=== PATIENT | male | born 1950 | race Caucasian/White ===

== ENCOUNTER 2018-01-05 14:07 | Inpatient (IN) ==
[2018-01-05] MEDS: Famotidine 20 MG TABLET PO SCH (21:20)
[2018-01-06] MEDS: hydrALAZINE 25 MG TABLET PO SCH ×2 (00:09→08:34)
[2018-01-06 05:31] LABS: Basophils # 0.1 K/mcL (0.0-0.2); Basophils % 0.3 %; Eosinophils # 0.2 K/mcL (0.0-0.6); Eosinophils % 0.8 %; Hematocrit 32.8 % (37.5-50.1); Hemoglobin 11.3 g/dL (12.9-16.9); Immature Granulocytes % 0.7 % (0-4); Lymphocytes # 1.9 K/mcL (0.6-4.6); Mean Corpuscular HGB Conc 34.5 g/dL (31.6-35.5); Mean Corpuscular Hemoglobin 30.6 pg (28.0-33.3); Mean Corpuscular Volume 88.9 fL (83.0-100.0); Mean Platelet Volume 10.3 fL (9.4-12.4); Monocytes # 1.9 K/mcL (0.0-1.3); Monocytes % 7.9 %; Platelet Count 291 K/mcL (140-400); Red Blood Count 3.69 M/mcL (4.19-5.50); Red Cell Distribution Width 13.6 % (11.5-14.5); Segmented Neutrophils % 82.3 %
[2018-01-06 05:33] LABS: Neutrophils # 19.3 K/mcL (1.6-8.9)
[2018-01-06 05:36] LABS: INR 1.3; Prothrombin Time 14.2 Seconds (9.4-12.1)
[2018-01-06 05:38] LABS: Activated Partial Thrombo Time 26.8 Seconds (26.0-36.0)
[2018-01-06 05:46] LABS: BUN/Creatinine Ratio 22 (6-26); Blood Urea Nitrogen 24 mg/dL (8-23); Calcium 9.7 mg/dL (8.6-10.3); Carbon Dioxide 25 mEq/L (23-29); Chloride 96 mEq/L (98-107); Glucose 215 mg/dL (70-105); Osmolality,Calculated 281 (280-300); Sodium 130 mEq/L (136-145); eGFR For African Americans > 60 (> 60); eGFR For Non-African Americans > 60 (> 60)
[2018-01-06] MEDS: Aspirin Enteric Coated 81 MG Tablet PO SCH (08:32)
[2018-01-06] MEDS: Famotidine 20 MG TABLET PO SCH (08:34)
[2018-01-06] MEDS ORDERED: hydroCHLOROthiazide 25 MG TABLET PO SCH (09:00)
[2018-01-06] MEDS ORDERED: D5% in Water 1,000 ML IVC PRN (11:32)
[2018-01-06] MEDS ORDERED: Dextrose Gel 15 GM/37.5 ML TUBE PO PRN ×2 (11:32)
[2018-01-06] MEDS ORDERED: *HR* Dextrose 50 % in Water (Syg) 50 ML SYRINGE IVP PRN (11:32)
[2018-01-06] MEDS: Insulin LISPRO 300 UNITS/3 ML VIAL SQ SCH ×2 (12:31→18:33)
--- NOTE | 2018-01-06 12:44 | Internal Med History&Physical ---
Date of Encounter: 01/06/18 Time of Encounter: 12:40 Assessment and Plan (1) CVA (cerebral vascular accident) Current visit: Yes Status: Acute PT and OT and ST to eval and treat. Will follow progress. No new neuro deficits at this time Qualifiers: CVA mechanism: unspecified Qualified Code(s): I63.9 - Cerebral infarction, unspecified (2) Diabetes type 2, controlled Current visit: Yes Status: Acute Elevated glucose today. Patient receiving nutrition through Gtube. Is NPO at this time. Will add an low-dose sliding scale coverage for elevated glucose. Qualifiers: Diabetes mellitus complication status: without complication Diabetes mellitus prison insulin use: without prison use Qualified Code(s): E11.9 - Type 2 diabetes mellitus without complications (3) HTN (hypertension) Current visit: Yes Status: Chronic Controlled with current medication. Will monitor BP Qualifiers: Hypertension type: essential hypertension Qualified Code(s): I10 - Essential (primary) hypertension (4) Leukocytosis, unspecified Current visit: Yes Status: Acute White blood cell count 23.5 today was 15.8 on January 01 at the last facility. Will order testing and follow-up labs for tomorrow. Patient is afebrile with no respiratory complications at this time. Qualifiers: Leukocytosis type: unspecified Qualified Code(s): D72.829 - Elevated white blood cell count, unspecified Internal Medicine - H&P: HPI Admitted From: [facility] Plans for Post Hospital Care: Home History of present illness: Mr. Fuentes is a 67 year old male admitted from [facility] rehab facility to this facility for rehabilitation following stroke late November 2017. Positive for right middle cerebral artery infarct which developed into a bleed. He require a craniotomy for decompression. Patient has left-sided plegia and left-sided neglect. Patient is fatigued at this time but did participate with physical therapy and occupational therapy today. Vital signs are stable in patient is afebrile. NPO due to dysphagia, nutrition and meds through gtube. Past medical history includes hypertension, diabetes, hyperlipidemia, hypothyroidism. Patient spouse was present most of the day today. Patient is unable to participate in HPI due to fatigue but is alert to self and place. And denies pain at this time. Past Med Surg Social Fam HX - Past Medical History Medical history: CVA, hyperlipidemia, hypertension, thyroid disease, other Psychiatric history: no psych history - Past Surgical History Surgical History: orthopedic, other - Social History Smoking Status: Never smoker Smokeless Tobacco Status: No Alcohol use: none Drug use: none - Family History Brother Name: polina Living Status: Still Living Internal Medicine - H&P: Meds Levothyroxine [Synthroid] 100 mcg PO 0630 12/06/17 [History] Losartan [Cozaar] 50 mg PO Q12HR 12/06/17 [History] Aspirin Enteric Coated [Aspirin EC] 81 mg PO DAILY 01/05/18 [History] Atorvastatin Calcium [Lipitor] 80 mg PO HS 01/05/18 [History] Docusate [Colace] 200 mg GTUBE BID PRN 01/05/18 [History] hydrALAZINE [HydrALAZINE] 25 mg PO Q8HR 01/05/18 [History] hydroCHLOROthiazide [Hydrochlorothiazide] 25 mg PO DAILY 01/05/18 [History] 3 Allergy/AdvReac Type Severity Reaction Status Date / Time No Known Allergies Allergy Verified 12/06/17 09:31 ROS unobtainable: due to mental status All Systems PM: A 10-system review of systems was performed and is negative for pertinent findings except as documented above in the HPI. - Constitutional Constitutional: no chills, no fever(s), no night sweats - EENT Eyes: no change in vision, no discharge, no pain, no photophobia Ears: no ear discharge, no ear pain, no tinnitus Nose, mouth and throat: no dysphagia, no nasal discharge, no neck pain, no sore throat - Cardiovascular Cardiovascular ROS IM: no chest pain, no diaphoresis, no dyspnea, no lightheadedness, no palpitations, no syncope - Respiratory Respiratory: no cough, no dyspnea, no wheezing, no excessive phlegm production - Gastrointestinal Gastrointestinal: no abdominal pain, no diarrhea, no hematemesis, no hematochezia, no melena, no nausea, no vomiting - Musculoskeletal Musculoskeletal ROS IM: no numbness, no tingling - Integumentary Integumentary IM: no rash, no unusual bruising - Neurological Neurological ROS: no confusion, no convulsions, no focal weakness, no numbness, no tingling, no tremor(s) - Hematologic/Lymphatic Hematologic/Lymphatic: no easy bruising - Constitutional Vitals: Temp Pulse Resp BP Pulse Ox 98.3 F 85 18 137/73 95 01/06/18 12:21 01/06/18 12:21 01/06/18 12:21 01/06/18 12:21 01/06/18 12:21 General appearance: Present: A&O X 2, no acute distress Exam: fatigue - Head Head exam: Present: atraumatic, normocephalic - Eye Eye exam: Present: PERRL, conjuntiva pink, sclera anicteric Pupils: Present: PERRL - Neck Neck exam general surgery: Present: supple, trachea midline. Absent: lymphadenopathy - Respiratory Respiratory exam: Present: CTAB. Absent: accessory muscle use, rales, rhonchi, wheezes - Cardiovascular Cardiovascular exam: Present: RRR, +S1, +S2. Absent: diastolic murmur, gallop, rubs, systolic murmur - GI/Abdominal GI/Abdominal exam: Present: normal bowel sounds, soft, no peritoneal signs. Absent: distended, tenderness Additional comments: g-tube - Extremities Exam Extremities exam: Present: warm, radial pulses palpable and symmetrical. Absent : calf tenderness, cyanotic, pedal edema - Neurological Exam Neurological exam: Present: alert. Absent: pronater drift, facial droop, speech deficit Additional comments: drowsy, LUE plegia. full strength in RE. - Skin Skin exam: Present: dry, intact Internal Med - H&P Results - Labs CBC & Chem 7: 01/06/18 05:25 01/06/18 05:25 Labs: Short CBC 01/06/18 Range/Units 05:25 WBC 23.5 H (4.3-11.1) K/mcL Hgb 11.3 L (12.9-16.9) g/dL Hct 32.8 L (37.5-50.1) % Plt Count 291 (140-400) K/mcL Neutrophils # 19.3 H (1.6-8.9) K/mcL BMP 01/06/18 05:25 Sodium 130 L Potassium 4.0 Chloride 96 L Carbon Dioxide 25 BUN 24 H Creatinine 1.07 Glucose 215 H Calcium 9.7 - VTE Documentation of Mechanical Device: Graduated compression elastic hosiery
[2018-01-06] MEDS: hydrALAZINE 25 MG TABLET GTUBE SCH ×2 (18:29→23:43)
[2018-01-06] MEDS: Famotidine 20 MG TABLET GTUBE SCH (21:32)
[2018-01-07] MEDS: Insulin LISPRO 300 UNITS/3 ML VIAL SQ SCH ×5 (00:02→23:17)
[2018-01-07 06:08] LABS: Basophils # 0.1 K/mcL (0.0-0.2); Basophils % 0.4 %; Eosinophils # 0.5 K/mcL (0.0-0.6); Eosinophils % 1.9 %; Hemoglobin 10.3 g/dL (12.9-16.9); Lymphocytes # 2.1 K/mcL (0.6-4.6); Lymphocytes % 7.8 %; Mean Corpuscular HGB Conc 34.3 g/dL (31.6-35.5); Mean Corpuscular Hemoglobin 30.6 pg (28.0-33.3); Mean Platelet Volume 10.7 fL (9.4-12.4); Monocytes # 2.5 K/mcL (0.0-1.3); Monocytes % 9.5 %; Platelet Count 254 K/mcL (140-400); Red Blood Count 3.37 M/mcL (4.19-5.50); Segmented Neutrophils % 79.4 %
[2018-01-07 06:15] LABS: Anisocytosis 1+ (Not Present)
[2018-01-07 06:26] LABS: BUN/Creatinine Ratio 24 (6-26); Blood Urea Nitrogen 26 mg/dL (8-23); Calcium 9.5 mg/dL (8.6-10.3); Carbon Dioxide 27 mEq/L (23-29); Chloride 93 mEq/L (98-107); Glucose 211 mg/dL (70-105); Osmolality,Calculated 279 (280-300); Potassium 3.8 mEq/L (3.5-5.1); Sodium 129 mEq/L (136-145); eGFR For African Americans > 60 (> 60); eGFR For Non-African Americans > 60 (> 60)
[2018-01-07] MEDS: Aspirin Enteric Coated 81 MG Tablet PO SCH (07:54)
[2018-01-07] MEDS: Famotidine 20 MG TABLET GTUBE SCH ×2 (07:54→22:53)
[2018-01-07] MEDS: hydrALAZINE 25 MG TABLET GTUBE SCH ×3 (07:54→22:53)
[2018-01-07] MEDS ORDERED: hydroCHLOROthiazide 25 MG TABLET GTUBE SCH (09:00)
--- NOTE | 2018-01-07 13:09 | Internal Med Progress Note ---
Date of Encounter: 01/07/18 Time of Encounter: 13:07 - Assessment and plan (1) CVA (cerebral vascular accident) Current Visit: Yes Status: Acute Assessment and plan: Patient with right hemisphere CVA and status post right craniectomy. Patient shows left grace-plegic and left facial droop. Also noted on exam left sided neglect. Patient currently is drowsy, but nursing states that he fatigued quickly during physical therapy. No acute neurological deficits noted on exam per medical records. We will continue with current plan of care and physical therapy. Patient to have modified swallow study performed today. Qualifiers: CVA mechanism: unspecified Qualified Code(s): I63.9 - Cerebral infarction, unspecified (2) Pneumonia Current Visit: No Status: Acute Assessment and plan: Patient's WBC was greater than 25 days morning. Chest x-ray from yesterday showed right base pleural effusion. No productive cough noted. Lungs are diminished at bases. We will start on Augmentin. Qualifiers: Pneumonia type: aspiration pneumonia Aspiration pneumonia type: unspecified Laterality: left Lung location: lower lobe of lung Qualified Code(s): J69.0 - Pneumonitis due to inhalation of food and vomit (3) HTN (hypertension) Current Visit: Yes Status: Chronic Assessment and plan: Vital signs presently are stable. We will continue with current medications Qualifiers: Hypertension type: essential hypertension Qualified Code(s): I10 - Essential (primary) hypertension - Time Spent With Patient less than 15 minutes - Subjective Interval history: Patient appears somewhat lethargic but able to awaken with verbal stimuli. Patient able to follow simple commands but shows difficulty following complex. Answer simple questions with yes no answers. Assessment of orientation is limited on this exam. - Constitutional Vitals: Temp Pulse Resp BP Pulse Ox 98.6 F 74 14 135/75 95 01/07/18 07:04 01/07/18 07:04 01/07/18 07:04 01/07/18 07:04 01/07/18 07:04 General appearance: Present: A&O X 1, no acute distress Exam: Patient was oriented to self but difficulty and judgment and orientation to time otherwise - Head Head exam: Present: atraumatic, normocephalic Additional comments: Right craniectomy with surgical incision appeared well-healed. - Eye Eye exam: Present: PERRL, conjuntiva pink, sclera anicteric Pupils: Present: PERRL - Neck Neck exam general surgery: Present: supple, trachea midline. Absent: lymphadenopathy - Respiratory Respiratory exam: Present: CTAB. Absent: accessory muscle use, rales, rhonchi, wheezes Additional comments: Lungs with diminished breath sounds in the bases bilaterally, otherwise clear to auscultation. Respiratory effort appears relaxed - Cardiovascular Cardiovascular exam: Present: RRR, +S1, +S2. Absent: diastolic murmur, gallop, rubs, systolic murmur - GI/Abdominal GI/Abdominal exam: Present: normal bowel sounds, soft, no peritoneal signs. Absent: distended, tenderness Additional comments: Gastrostomy tube in place and currently is clamped. Insertion site appears healthy - Extremities Exam Extremities exam: Present: warm, radial pulses palpable and symmetrical. Absent : calf tenderness, cyanotic, pedal edema - Neurological Exam Neurological exam: Absent: pronater drift, facial droop, speech deficit Additional comments: Patient currently appears very drowsy but was able to awaken by verbal. Patient noted to quickly fall back asleep unless continuously stimulated. Patient has left facial droop. Tongue is midline. Patient offers one to 2 word answers to simple questions but no other verbal response was cued. Noted left neglect on visual ferraro. Left grace-plegic. LE MS 5/5. - Skin Skin exam: Present: dry, intact Internal Medicine: Result - Labs CBC & Chem 7: 01/07/18 05:40 01/07/18 05:40 Labs: Short CBC 01/07/18 Range/Units 05:40 WBC 26.5 H (4.3-11.1) K/mcL Hgb 10.3 L (12.9-16.9) g/dL Hct 30.0 L (37.5-50.1) % Plt Count 254 (140-400) K/mcL Neutrophils # 21.0 H (1.6-8.9) K/mcL BMP 01/07/18 05:40 Sodium 129 L Potassium 3.8 Chloride 93 L Carbon Dioxide 27 BUN 26 H Creatinine 1.10 Glucose 211 H Calcium 9.5 - ABG Interpretation ABG results: PT/INR, D-dimer PT 14.2 Seconds (9.4-12.1) H 01/06/18 05:25 - Impressions Impressions Chest X-Ray 01/06/18 13:21 IMPRESSION: Increased pleural-parenchymal disease left lung base D/ / Jorge Olmedo MD / Jorge Olmedo MD Interpreting Provider: Jorge Olmedo MD - VTE Documentation of Mechanical Device: Graduated compression elastic hosiery Consult Discharge Plan - Plan Referrals: Erika Baca [employer]BE[employer] PIPE SUPERVISOR [Primary Care Provider] -
--- NOTE | 2018-01-07 17:21 | Physcial Medicine-Consult Note ---
Date of Encounter: 01/07/18 Time of Encounter: 17:12 Physical Medicine - AP (1) CVA (cerebral vascular accident) Status: Acute Assessment and plan: Initiate therapies. For his arousal disorder, I discussed Amantadine or amphetamine if medically appropriate. Code(s): I63.9 - Cerebral infarction, unspecified SNOMED Code(s): 574005742 (2) Hemorrhagic stroke Status: Acute Assessment and plan: Will need to have his skull flap put back in. Code(s): I61.9 - Nontraumatic intracerebral hemorrhage, unspecified SNOMED Code(s): 836648404 Physical Medicine - HPI - Data of Consult Requesting Physician: Omi Craft MD Primary Care Provider: Erika Baca CNP - Consult Narrative History of present illness: Mr. Fuentes is a 67 year old RH male who had an ischemic right cva. He was doing well in therapy and then had an intracebral hemorrhage requiring cranotomy and bone flap. He has no complaints today. CC: I had a stroke. Past Med Surg Social Fam HX - Past Medical History Attestation: Yes The following information was validated with the patient. Medical history: CVA, hyperlipidemia, hypertension, thyroid disease, other Psychiatric history: no psych history - Past Surgical History Surgical History: orthopedic, other - Social History Smoking Status: Never smoker Smokeless Tobacco Status: No Alcohol use: none Drug use: none - Family History Brother Name: polina Living Status: Still Living Medications and Allergies Levothyroxine [Synthroid] 100 mcg PO 0630 12/06/17 [History] Losartan [Cozaar] 50 mg PO Q12HR 12/06/17 [History] Aspirin Enteric Coated [Aspirin EC] 81 mg PO DAILY 01/05/18 [History] Atorvastatin Calcium [Lipitor] 80 mg PO HS 01/05/18 [History] Docusate [Colace] 200 mg GTUBE BID PRN 01/05/18 [History] hydrALAZINE [HydrALAZINE] 25 mg PO Q8HR 01/05/18 [History] hydroCHLOROthiazide [Hydrochlorothiazide] 25 mg PO DAILY 01/05/18 [History] 3 Allergy/AdvReac Type Severity Reaction Status Date / Time No Known Allergies Allergy Verified 12/06/17 09:31 All systems: reviewed and no additional remarkable complaints except as stated ( Left side paralysis.) Physical Medicine - Exam - Constitutional Vitals: Temp Pulse Resp BP Pulse Ox 97.6 F 84 14 150/73 97 01/07/18 16:39 01/07/18 16:39 01/07/18 16:39 01/07/18 16:39 01/07/18 16:39 - Head Additional comments: Large cranial defect right skull Left facial droop. - Eye Additional comments: Right gaze preference. Left visual field cut. - ENT Additional comments: Mouth slighly dry. Tounge protrudes to the left - Neck Neck exam: Present: full ROM - Respiratory Respiratory exam: Present: CTAB - Cardiovascular Cardiovascular exam: Present: RRR - GI/Abdominal GI/Abdominal exam: Present: normal bowel sounds Additional comments: G tube LUQ CDI. - Extremities Exam Additional comments: Flaccid LUE and LLE No CCE. - Neurological Exam Neurological exam: Present: motor sensory deficit, oriented X3, reflexes normal , facial droop Additional comments: Sensation left hemibody. No Corona's or Babinski - Psychiatric Psychiatric exam: Present: flat affect, normal mood - Skin Skin exam: Present: intact Physical Medicine - Results - Labs CBC & Chem 7: 01/07/18 05:40 01/07/18 05:40 Labs: Short CBC 01/07/18 Range/Units 05:40 WBC 26.5 H (4.3-11.1) K/mcL Hgb 10.3 L (12.9-16.9) g/dL Hct 30.0 L (37.5-50.1) % Plt Count 254 (140-400) K/mcL Neutrophils # 21.0 H (1.6-8.9) K/mcL BMP 01/07/18 05:40 Sodium 129 L Potassium 3.8 Chloride 93 L Carbon Dioxide 27 BUN 26 H Creatinine 1.10 Glucose 211 H Calcium 9.5 Anemia, Hyponatremia., Dehydrated., Hyperglycemia. Leukocytosis. - Impressions ITS Impressions Chest X-Ray 01/06/18 13:21 IMPRESSION: Increased pleural-parenchymal disease left lung base D/ / Jorge Olmedo MD / Jorge Olmedo MD Interpreting Provider: Jorge Olmedo MD Videofluoroscopic Swallow 01/07/18 13:31 IMPRESSION: Single episode of aspiration during soft solid trial with additional thin consistency contrast. Please see separate speech pathology report for full discussion of findings and recommendations. D/ / 01/07/2018 15:30:20 Alejo Arshad MD / [email or web address] Interpreting Provider: Alejo Arshad MD Consult Discharge Plan - Plan Referrals: Erika Baca CERTIFIED NURSE [Primary Care Provider] -
[2018-01-08] MEDS: Insulin LISPRO 300 UNITS/3 ML VIAL SQ SCH ×3 (05:19→18:03)
[2018-01-08] MEDS: Famotidine 20 MG TABLET GTUBE SCH ×2 (09:54→22:11)
[2018-01-08] MEDS: hydrALAZINE 25 MG TABLET GTUBE SCH ×2 (09:54→15:42)
[2018-01-08] MEDS: Aspirin Enteric Coated 81 MG Tablet PO SCH (09:54)
--- NOTE | 2018-01-08 11:35 | Internal Med Progress Note ---
Date of Encounter: 01/08/18 Time of Encounter: 11:27 - Assessment and plan (1) CVA (cerebral vascular accident) Current Visit: Yes Status: Acute Assessment and plan: Patient with right hemisphere CVA and status post right craniectomy. Patient shows left grace-plegic and left facial droop. Also noted on exam left sided neglect. No acute neurological deficits noted on exam per medical records. We will continue with current plan of care and physical therapy. Patient to have modified swallow study performed today. Qualifiers: CVA mechanism: unspecified Qualified Code(s): I63.9 - Cerebral infarction, unspecified (2) Pneumonia Current Visit: No Status: Acute Assessment and plan: Pt continued on Augmentin. Pulmonary status unchanged with no acute issues. Qualifiers: Pneumonia type: aspiration pneumonia Aspiration pneumonia type: unspecified Laterality: left Lung location: lower lobe of lung Qualified Code(s): J69.0 - Pneumonitis due to inhalation of food and vomit (3) HTN (hypertension) Current Visit: Yes Status: Chronic Assessment and plan: VSS. Will continue on current meds. Qualifiers: Hypertension type: essential hypertension Qualified Code(s): I10 - Essential (primary) hypertension - Subjective Interval history: Patient appears drowsy. Patient able to follow simple commands and simple questions, but shows difficulty following complex task. Answer simple questions with yes/no answers. Assessment of orientation is limited on this exam. - Constitutional Vitals: Temp Pulse Resp BP Pulse Ox 97.8 F 84 20 114/62 92 01/08/18 07:28 01/08/18 07:28 01/08/18 07:28 01/08/18 07:28 01/08/18 07:28 General appearance: Present: A&O X 1, no acute distress Exam: Oriented to name only. Exam limited due to pt's confusion. - Head Head exam: Present: atraumatic, normocephalic - Eye Eye exam: Present: PERRL, conjuntiva pink, sclera anicteric Pupils: Present: PERRL - Neck Neck exam general surgery: Present: supple, trachea midline. Absent: lymphadenopathy - Respiratory Respiratory exam: Present: CTAB. Absent: accessory muscle use, rhonchi, wheezes Additional comments: Diminished breath sounds to the bases. - Cardiovascular Cardiovascular exam: Present: RRR, +S1, +S2. Absent: diastolic murmur, gallop, rubs, systolic murmur - GI/Abdominal GI/Abdominal exam: Present: normal bowel sounds, soft, no peritoneal signs. Absent: distended, tenderness - Extremities Exam Extremities exam: Present: warm, radial pulses palpable and symmetrical. Absent : calf tenderness, cyanotic, pedal edema - Neurological Exam Neurological exam: Present: pronater drift, facial droop, speech deficit Additional comments: Noted left visual cut and left neglect. Pt with left facial droop and slight slurred speech. Pt able to answer simple questions appropriately after cueing. Right craniectomy incision healing well. Helmet in use. Left hemiplegia. RE 5/. - Skin Skin exam: Present: dry, intact Internal Medicine: Result - Labs CBC & Chem 7: 01/07/18 05:40 01/07/18 05:40 - ABG Interpretation ABG results: PT/INR, D-dimer PT 14.2 Seconds (9.4-12.1) H 01/06/18 05:25 - Impressions Impressions Videofluoroscopic Swallow 01/07/18 13:31 IMPRESSION: Single episode of aspiration during soft solid trial with additional thin consistency contrast. Please see separate speech pathology report for full discussion of findings and recommendations. D/ / 01/07/2018 15:30:20 Alejo Arshad MD / [email or web address] Interpreting Provider: Alejo Arshad MD - VTE Documentation of Mechanical Device: Graduated compression elastic hosiery Consult Discharge Plan - Plan Referrals: Erika Baca CODE NUMBER STAMPER [Primary Care Provider] -
[2018-01-09] MEDS: hydrALAZINE 25 MG TABLET GTUBE SCH ×3 (01:14→17:38)
[2018-01-09] MEDS: Insulin LISPRO 300 UNITS/3 ML VIAL SQ SCH ×4 (01:25→17:48)
[2018-01-09] MEDS: Aspirin Enteric Coated 81 MG Tablet PO SCH (08:57)
[2018-01-09] MEDS: Famotidine 20 MG TABLET GTUBE SCH ×2 (08:57→21:22)
[2018-01-09 12:01] LABS: Basophils # 0.1 K/mcL (0.0-0.2); Basophils % 0.3 %; Eosinophils # 0.6 K/mcL (0.0-0.6); Eosinophils % 2.4 %; Hematocrit 29.5 % (37.5-50.1); Hemoglobin 9.8 g/dL (12.9-16.9); Immature Granulocytes % 1.6 % (0-4); Lymphocytes % 8.1 %; Mean Corpuscular HGB Conc 33.2 g/dL (31.6-35.5); Mean Corpuscular Hemoglobin 30.2 pg (28.0-33.3); Mean Corpuscular Volume 90.8 fL (83.0-100.0); Mean Platelet Volume 11.2 fL (9.4-12.4); Monocytes # 2.1 K/mcL (0.0-1.3); Monocytes % 8.2 %; Neutrophils # 19.9 K/mcL (1.6-8.9); Platelet Count 261 K/mcL (140-400); Red Blood Count 3.25 M/mcL (4.19-5.50); Segmented Neutrophils % 79.4 %
[2018-01-09 12:05] LABS: Alanine Aminotransferase 218 Units/L (7-52); Albumin 3.1 g/dL (3.5-5.7); Albumin/Globulin Ratio 0.7 (1.1-2.2); Alkaline Phosphatase 118 Units/L (34-104); Aspartate Amino Transferase 136 Units/L (13-39); BUN/Creatinine Ratio 22 (6-26); Bilirubin,Total 0.4 mg/dL (0.3-1.0); Blood Urea Nitrogen 25 mg/dL (8-23); Calcium 9.4 mg/dL (8.6-10.3); Carbon Dioxide 29 mEq/L (23-29); Chloride 95 mEq/L (98-107); Globulin 4.6 g/dL (2.4-3.5); Glucose 139 mg/dL (70-105); Magnesium 2.1 mg/dL (1.6-2.6); Osmolality,Calculated 281 (280-300); Potassium 4.2 mEq/L (3.5-5.1); Sodium 132 mEq/L (136-145); Total Protein 7.7 g/dL (6.4-8.9); eGFR For African Americans > 60 (> 60); eGFR For Non-African Americans > 60 (> 60)
--- NOTE | 2018-01-09 13:10 | Internal Med Progress Note ---
Date of Encounter: 01/09/18 Time of Encounter: 13:08 - Assessment and plan (1) CVA (cerebral vascular accident) Current Visit: Yes Status: Acute Assessment and plan: Patient with right hemisphere CVA and status post right craniectomy. Patient shows left grace-plegic and left facial droop. Also noted on exam left sided neglect. No acute neurological deficits noted on exam per medical records. We will continue with current plan of care and physical therapy. Patient to have modified swallow study performed today. Qualifiers: CVA mechanism: unspecified Qualified Code(s): I63.9 - Cerebral infarction, unspecified (2) Pneumonia Current Visit: No Status: Acute Assessment and plan: Pt continued on Augmentin. Pulmonary status unchanged with no acute issues. Qualifiers: Pneumonia type: aspiration pneumonia Aspiration pneumonia type: unspecified Laterality: left Lung location: lower lobe of lung Qualified Code(s): J69.0 - Pneumonitis due to inhalation of food and vomit (3) HTN (hypertension) Current Visit: Yes Status: Chronic Assessment and plan: VSS. Will continue on current meds. Qualifiers: Hypertension type: essential hypertension Qualified Code(s): I10 - Essential (primary) hypertension (4) Diarrhea Current Visit: Yes Status: Acute Assessment and plan: Pt reported to be having very loose stools and flatus. Abd slightly distended, but soft. BM has changed during time of both TF formula change and initiation of ATB. Will continue to follow. Obtain KUB. Start on simethicone. Qualifiers: Diarrhea type: unspecified type Qualified Code(s): R19.7 - Diarrhea, unspecified - Time Spent With Patient less than 15 minutes - Subjective Interval history: Patient appears drowsy, but easily awakened by verbal. Patient able to follow simple commands and simple questions, but shows difficulty following complex task. Answer simple questions with yes/no answers. Assessment of orientation is limited on this exam. Nursing states that patient is tolerating TF by bolus, but that patient current seems to be having increased gas and diarrhea. - Constitutional Vitals: Temp Pulse Resp BP Pulse Ox 98.7 F 73 17 147/65 96 01/08/18 19:02 01/09/18 09:00 01/09/18 09:00 01/09/18 09:00 01/09/18 09:00 General appearance: Present: A&O X 1, no acute distress - Head Head exam: Present: atraumatic, normocephalic Additional comments: right craniectomy site appears well healed and healthy. Helmet in use. - Eye Eye exam: Present: PERRL, conjuntiva pink, sclera anicteric Pupils: Present: PERRL - Neck Neck exam general surgery: Present: supple, trachea midline. Absent: lymphadenopathy - Respiratory Respiratory exam: Present: CTAB. Absent: accessory muscle use, rales, rhonchi, wheezes Additional comments: diminished breath sounds to bases. - Cardiovascular Cardiovascular exam: Present: RRR, +S1, +S2. Absent: diastolic murmur, gallop, rubs, systolic murmur - GI/Abdominal GI/Abdominal exam: Present: normal bowel sounds, soft, no peritoneal signs. Absent: distended, tenderness Additional comments: Abd appears soft, but slightly distended. Nontender. BS all quads. - Extremities Exam Extremities exam: Present: warm, radial pulses palpable and symmetrical. Absent : calf tenderness, cyanotic, pedal edema - Neurological Exam Neurological exam: Present: facial droop, speech deficit. Absent: pronater drift Additional comments: Pt continues with left hemiplegia. Left facial droop. Minimal interaction with staff, unless cued. Answers in 1-2 word answers. No signs of seizure activity notedl - Skin Skin exam: Present: dry, intact Internal Medicine: Result - Labs CBC & Chem 7: 01/09/18 11:24 01/09/18 11:24 Labs: Short CBC 01/09/18 Range/Units 11:24 WBC 25.1 H (4.3-11.1) K/mcL Hgb 9.8 L (12.9-16.9) g/dL Hct 29.5 L (37.5-50.1) % Plt Count 261 (140-400) K/mcL Neutrophils # 19.9 H (1.6-8.9) K/mcL BMP 01/09/18 11:24 Sodium 132 L Potassium 4.2 Chloride 95 L Carbon Dioxide 29 BUN 25 H Creatinine 1.12 Glucose 139 H Calcium 9.4 Liver Function 01/09/18 Range/Units 11:24 Total Bilirubin 0.4 (0.3-1.0) mg/dL AST 136 H (13-39) Units/L ALT 218 H (7-52) Units/L Alkaline Phosphatase 118 H (34-104) Units/L Albumin 3.1 L (3.5-5.7) g/dL - ABG Interpretation ABG results: PT/INR, D-dimer PT 14.2 Seconds (9.4-12.1) H 01/06/18 05:25 - VTE Documentation of Mechanical Device: Graduated compression elastic hosiery Consult Discharge Plan - Plan Referrals: Erika Baca CNP [Primary Care Provider] -
[2018-01-09] MEDS: Simethicone 80 MG TAB.CHEW PO SCH (21:21)
[2018-01-09 22:53] LABS: Bilirubin,Urine Negative (Negative); Blood,Urine Negative (Negative); Clarity,Urine Clear (Clear); Color,Urine Yellow (Yellow); Glucose,Urine (UA) Normal (Normal); Ketones,Urine Negative (Negative); Leukocyte Esterase,Urine Negative (Negative); Nitrite,Urine Negative (Negative); Protein,Urine 30 mg/dL (Neg-Trace); Specific Gravity,Urine 1.015 (1.010-1.025); Urobilinogen,Urine Normal (Normal)
[2018-01-09 23:15] LABS: Amorphous Sediment,Urine Moderate (Few); Bacteria,Urine Moderate per hpf (None-Few); Mucus,Urine Few (Few)
[2018-01-10] MEDS: hydrALAZINE 25 MG TABLET GTUBE SCH ×3 (00:49→16:56)
[2018-01-10] MEDS: Insulin LISPRO 300 UNITS/3 ML VIAL SQ SCH ×5 (00:53→20:28)
--- NOTE | 2018-01-10 09:03 | Internal Med Progress Note ---
Date of Encounter: 01/10/18 Time of Encounter: 09:00 - Assessment and plan (1) CVA (cerebral vascular accident) Current Visit: Yes Status: Acute Assessment and plan: getting PT he is able to eat now . Feeding per PEG stopped Medication still given per peg Slowly improving Qualifiers: CVA mechanism: unspecified Qualified Code(s): I63.9 - Cerebral infarction, unspecified (2) HTN (hypertension) Current Visit: Yes Status: Chronic Assessment and plan: stable at the present time no acute issues Qualifiers: Hypertension type: essential hypertension Qualified Code(s): I10 - Essential (primary) hypertension (3) Hypothyroid Current Visit: No Status: Chronic Qualifiers: Hypothyroidism type: unspecified Qualified Code(s): E03.9 - Hypothyroidism , unspecified (4) Diabetes type 2, controlled Current Visit: Yes Status: Acute Assessment and plan: stable Qualifiers: Diabetes mellitus complication status: without complication Diabetes mellitus senior living insulin use: without intermediate teacher use Qualified Code(s): E11.9 - Type 2 diabetes mellitus without complications (5) Leukocytosis, unspecified Current Visit: Yes Status: Acute Assessment and plan: No cause found . His UA is withing normal limits without any evidence of infection CXR no infiltrate Liver enzymes are high including Alk Phos . Needs ultrasound gall bladder and liver repeat labs .If becomes febrile I would start on IV antibiotics Qualifiers: Leukocytosis type: unspecified Qualified Code(s): D72.829 - Elevated white blood cell count, unspecified (6) Hyponatremia Current Visit: Yes Status: Acute Assessment and plan: slowly improving . Had Craniotomy . will followup - Subjective Interval history: seen as cross coverage . Pt denies any acute issues No fever or chills No cough . he doesn't complains of any urinary issues either . No abdominal pain S/p Craniotomy due to Hemorrhagic Bleed and CVA affecting left side. WBC high on oral antibiotics UA has been negative cause not known so far - Constitutional Vitals: Temp Pulse Resp BP Pulse Ox 97.6 F 69 14 114/56 96 01/10/18 08:57 01/10/18 08:57 01/10/18 08:57 01/10/18 08:57 01/10/18 08:57 General appearance: Present: A&O X 1, A&O X 2, pleasant, no acute distress - Head Additional comments: has well healed scar wearing protective helmet - Eye Eye exam: Present: PERRL Pupils: Present: PERRL - Neck Neck exam general surgery: Present: supple. Absent: tenderness, nuchal rigidity - Respiratory Respiratory exam: Present: CTAB, rales. Absent: chest wall tenderness, respiratory distress, rhonchi, stridor, wheezes, tachypnea - Cardiovascular Cardiovascular exam: Present: RRR, +S1, +S2. Absent: irregular rhythm, JVD - GI/Abdominal GI/Abdominal exam: Present: normal bowel sounds, soft. Absent: firm, guarding, rebound, rigid - Extremities Exam Extremities exam: Absent: pedal edema - Neurological Exam Neurological exam: Absent: no focal deficits, facial droop, speech deficit Additional comments: weakness left side , dysphagia improved and he is able to eat slowly. no facial deviation noted Internal Medicine: Result - Labs CBC & Chem 7: 01/09/18 11:24 01/09/18 11:24 Labs: Short CBC 01/09/18 Range/Units 11:24 WBC 25.1 H (4.3-11.1) K/mcL Hgb 9.8 L (12.9-16.9) g/dL Hct 29.5 L (37.5-50.1) % Plt Count 261 (140-400) K/mcL Neutrophils # 19.9 H (1.6-8.9) K/mcL BMP 01/09/18 11:24 Sodium 132 L Potassium 4.2 Chloride 95 L Carbon Dioxide 29 BUN 25 H Creatinine 1.12 Glucose 139 H Calcium 9.4 Liver Function 01/09/18 Range/Units 11:24 Total Bilirubin 0.4 (0.3-1.0) mg/dL AST 136 H (13-39) Units/L ALT 218 H (7-52) Units/L Alkaline Phosphatase 118 H (34-104) Units/L Albumin 3.1 L (3.5-5.7) g/dL Urine 01/09/18 Range/Units 10:00 Urine Color Yellow (Yellow) Urine Clarity Clear (Clear) Urine pH 8.0 (5.0-8.0) pH Units Ur Specific [place] 1.015 (1.010-1.025) Urine Protein 30 H (Neg-Trace) mg/dL Urine Glucose (UA) Normal (Normal) mg/dL - ABG Interpretation ABG results: PT/INR, D-dimer PT 14.2 Seconds (9.4-12.1) H 01/06/18 05:25 - Impressions Impressions KUB X-Ray 01/09/18 11:03 IMPRESSION: Nonspecific, nonobstructive bowel gas pattern. D/ / Keagan Valadez MD / Keagan Valadez MD Interpreting Provider: Keagan Valadez MD Chest X-Ray 01/10/18 06:04 IMPRESSION: Improved aeration of left lung base D/ / Jorge Olmedo MD / Jorge Olmedo MD Interpreting Provider: Jorge Olmedo MD - VTE Documentation of Mechanical Device: Graduated compression elastic hosiery Consult Discharge Plan - Plan Referrals: Erika Baca INSECT CONTROL INSPECTOR [Primary Care Provider] -
[2018-01-10] MEDS: Famotidine 20 MG TABLET GTUBE SCH ×2 (09:16→20:25)
[2018-01-10] MEDS: Aspirin Enteric Coated 81 MG Tablet PO SCH (09:16)
[2018-01-10] MEDS: Simethicone 80 MG TAB.CHEW PO SCH ×3 (09:16→20:25)
[2018-01-11] MEDS: hydrALAZINE 25 MG TABLET GTUBE SCH ×3 (00:12→16:56)
[2018-01-11 04:45] LABS: Hematocrit 28.4 % (37.5-50.1); Hemoglobin 9.5 g/dL (12.9-16.9); Mean Corpuscular HGB Conc 33.5 g/dL (31.6-35.5); Mean Corpuscular Hemoglobin 29.8 pg (28.0-33.3); Mean Platelet Volume 10.3 fL (9.4-12.4); Platelet Count 262 K/mcL (140-400); Red Blood Count 3.19 M/mcL (4.19-5.50)
[2018-01-11 04:59] LABS: BUN/Creatinine Ratio 17 (6-26); Blood Urea Nitrogen 17 mg/dL (8-23); Calcium 9.2 mg/dL (8.6-10.3); Carbon Dioxide 26 mEq/L (23-29); Chloride 99 mEq/L (98-107); Glucose 129 mg/dL (70-105); Osmolality,Calculated 277 (280-300); Potassium 4.3 mEq/L (3.5-5.1); Sodium 132 mEq/L (136-145); eGFR For African Americans > 60 (> 60); eGFR For Non-African Americans > 60 (> 60)
[2018-01-11 05:00] LABS: Albumin/Globulin Ratio 0.6 (1.1-2.2); Bilirubin,Direct 0.2 mg/dL (0.0-0.2); Bilirubin,Indirect 0.3 mg/dL (0.0-1.2); Bilirubin,Total 0.5 mg/dL (0.3-1.0); Globulin 4.7 g/dL (2.4-3.5); Total Protein 7.7 g/dL (6.4-8.9)
[2018-01-11] MEDS: Insulin LISPRO 300 UNITS/3 ML VIAL SQ SCH ×4 (07:49→23:19)
[2018-01-11] MEDS: Famotidine 20 MG TABLET GTUBE SCH ×2 (07:49→20:41)
[2018-01-11] MEDS: Aspirin Enteric Coated 81 MG Tablet PO SCH (07:49)
[2018-01-11] MEDS: Simethicone 80 MG TAB.CHEW PO SCH ×3 (07:49→20:40)
--- NOTE | 2018-01-11 08:26 | Internal Med Progress Note ---
Date of Encounter: 01/11/18 Time of Encounter: 08:24 - Assessment and plan (1) CVA (cerebral vascular accident) Current Visit: Yes Status: Acute Assessment and plan: stable at the present time surgicla site mild change in coloration and some mild fluid /tissue swelling noted will continue to follow He is getting his PT and rehab Facial expression flat Qualifiers: CVA mechanism: unspecified Qualified Code(s): I63.9 - Cerebral infarction, unspecified (2) HTN (hypertension) Current Visit: Yes Status: Chronic Assessment and plan: stable no new change Qualifiers: Hypertension type: essential hypertension Qualified Code(s): I10 - Essential (primary) hypertension (3) Hypothyroid Current Visit: No Status: Chronic Assessment and plan: stable on meds will have a followup TSH Qualifiers: Hypothyroidism type: unspecified Qualified Code(s): E03.9 - Hypothyroidism , unspecified (4) Diabetes type 2, controlled Current Visit: Yes Status: Acute Assessment and plan: on sliding scale Adjust as needed . Target i not tight control due to his overall condition and risk for hypoglycemia . Qualifiers: Diabetes mellitus complication status: without complication Diabetes mellitus senior drupal developer insulin use: without senior drupal developer use Qualified Code(s): E11.9 - Type 2 diabetes mellitus without complications (5) Leukocytosis, unspecified Current Visit: Yes Status: Acute Assessment and plan: He is afebrile WBC count has decreased cause not known at the present time. His liver enzymes have increase ,with high AST and ALT , Alk Phosp is also high order hepatitis profile . CT of the abdomen to r/o any stones or brewing infection in gall bladder although examination is all normal Qualifiers: Leukocytosis type: unspecified Qualified Code(s): D72.829 - Elevated white blood cell count, unspecified (6) Hyponatremia Current Visit: Yes Status: Acute Assessment and plan: s/p surgery and brain truam . Keep Fluds less then 2 liters a day and followup - Subjective Interval history: seen as cross coverage .He is awake [place] any acute complains NO fever or chills No cough , no issues with urination . There is mild swelling on the right temporal area soft ,possible fluid , mild skin changes Hs WBC has decreased but still high .overall same as before - Constitutional Vitals: Temp Pulse Resp BP Pulse Ox 98.6 F 74 18 143/70 95 03/04/18 07:07 01/11/18 07:07 01/11/18 07:07 01/11/18 07:07 01/11/18 07:07 General appearance: Present: A&O X 1, A&O X 2, pleasant, no acute distress. Absent: severe distress - Head Additional comments: right side mild fluid collection versus local tissue mild change in coloration on the skin no wamth sutures healed well - Eye Eye exam: Present: PERRL Pupils: Present: PERRL - Neck Neck exam general surgery: Present: supple. Absent: nuchal rigidity - Respiratory Respiratory exam: Present: CTAB. Absent: decreased breath sounds, respiratory distress, rhonchi, wheezes, tachypnea - Cardiovascular Cardiovascular exam: Present: RRR, +S1, +S2. Absent: irregular rhythm, JVD, systolic murmur - GI/Abdominal GI/Abdominal exam: Present: normal bowel sounds, soft. Absent: distended, firm , pulsatile mass, rebound Additional comments: peg tube site normal no evidence of infection or redness noted otherwise normal examination - Extremities Exam Extremities exam: Absent: pedal edema, tenderness - Incison Incision: Present: clean and dry, intact. Absent: erythema - Neurological Exam Neurological exam: Present: alert, altered. Absent: facial droop, speech deficit Additional comments: left side weakness NO new change Internal Medicine: Result - Labs CBC & Chem 7: 01/11/18 04:33 01/11/18 04:33 Labs: Short CBC 01/11/18 Range/Units 04:33 WBC 19.2 H (4.3-11.1) K/mcL Hgb 9.5 L (12.9-16.9) g/dL Hct 28.4 L (37.5-50.1) % Plt Count 262 (140-400) K/mcL BMP 01/11/18 04:33 Sodium 132 L Potassium 4.3 Chloride 99 Carbon Dioxide 26 BUN 17 Creatinine 1.01 Glucose 129 H Calcium 9.2 Liver Function 01/11/18 Range/Units 04:33 Total Bilirubin 0.5 (0.3-1.0) mg/dL Direct Bilirubin 0.2 (0.0-0.2) mg/dL AST 180 H (13-39) Units/L ALT 322 H (7-52) Units/L Alkaline Phosphatase 142 H (34-104) Units/L Albumin 3.0 L (3.5-5.7) g/dL - ABG Interpretation ABG results: PT/INR, D-dimer PT 14.2 Seconds (9.4-12.1) H 01/06/18 05:25 - VTE Documentation of Mechanical Device: Graduated compression elastic hosiery Consult Discharge Plan - Plan Referrals: Keven,Erika Stanton, RAILWAY SHUNTER [Primary Care Provider] -
[2018-01-12] MEDS: hydrALAZINE 25 MG TABLET GTUBE SCH ×4 (00:13→23:40)
[2018-01-12 02:55] LABS: Hepatitis B Surface Antibody 0.15 mIU/mL; Hepatitis B Surface Antigen Nonreactive (Nonreactive); Hepatitis C Virus Antibody Nonreactive (Nonreactive)
[2018-01-12 06:08] LABS: Basophils # 0.1 K/mcL (0.0-0.2); Basophils % 0.6 %; Eosinophils # 0.7 K/mcL (0.0-0.6); Eosinophils % 3.7 %; Hematocrit 29.1 % (37.5-50.1); Hemoglobin 9.8 g/dL (12.9-16.9); Immature Granulocytes % 1.9 % (0-4); Lymphocytes % 12.6 %; Mean Corpuscular HGB Conc 33.7 g/dL (31.6-35.5); Mean Corpuscular Hemoglobin 29.8 pg (28.0-33.3); Mean Corpuscular Volume 88.4 fL (83.0-100.0); Mean Platelet Volume 10.3 fL (9.4-12.4); Monocytes # 1.3 K/mcL (0.0-1.3); Monocytes % 7.1 %; Neutrophils # 13.8 K/mcL (1.6-8.9); Platelet Count 271 K/mcL (140-400); Red Blood Count 3.29 M/mcL (4.19-5.50); Red Cell Distribution Width 14.1 % (11.5-14.5); Segmented Neutrophils % 74.1 %
[2018-01-12 06:14] LABS: Lymphocytes # 2.3 K/mcL (0.6-4.6)
[2018-01-12 06:20] LABS: BUN/Creatinine Ratio 15 (6-26); Blood Urea Nitrogen 15 mg/dL (8-23); Calcium 9.3 mg/dL (8.6-10.3); Carbon Dioxide 24 mEq/L (23-29); Chloride 100 mEq/L (98-107); Glucose 129 mg/dL (70-105); Osmolality,Calculated 277 (280-300); Potassium 4.3 mEq/L (3.5-5.1); Sodium 132 mEq/L (136-145); eGFR For African Americans > 60 (> 60); eGFR For Non-African Americans > 60 (> 60)
[2018-01-12 06:54] LABS: Albumin 2.9 g/dL (3.5-5.7); Albumin/Globulin Ratio 0.6 (1.1-2.2); Bilirubin,Direct 0.1 mg/dL (0.0-0.2); Bilirubin,Indirect 0.4 mg/dL (0.0-1.2); Bilirubin,Total 0.5 mg/dL (0.3-1.0); Globulin 4.7 g/dL (2.4-3.5); Total Protein 7.6 g/dL (6.4-8.9)
[2018-01-12] MEDS: Insulin LISPRO 300 UNITS/3 ML VIAL SQ SCH ×4 (07:56→20:55)
[2018-01-12] MEDS: Simethicone 80 MG TAB.CHEW PO SCH ×3 (10:11→20:54)
[2018-01-12] MEDS: Acetaminophen 325 MG TABLET PO PRN (10:11)
[2018-01-12] MEDS: Aspirin Enteric Coated 81 MG Tablet PO SCH (10:12)
[2018-01-12] MEDS: Famotidine 20 MG TABLET GTUBE SCH (10:12)
--- NOTE | 2018-01-12 10:56 | Internal Med Progress Note ---
Date of Encounter: 01/12/18 Time of Encounter: 10:46 - Assessment and plan (1) Stroke determined by clinical assessment Current Visit: No Status: Acute Assessment and plan: Clinically stable and progressing with therapeutics. (2) HTN (hypertension) Current Visit: Yes Status: Chronic Assessment and plan: Clinically stable and will continue current medications. Qualifiers: Hypertension type: essential hypertension Qualified Code(s): I10 - Essential (primary) hypertension (3) Hypothyroid Current Visit: No Status: Chronic Assessment and plan: On supplementation. Qualifiers: Hypothyroidism type: unspecified Qualified Code(s): E03.9 - Hypothyroidism , unspecified (4) Diabetes type 2, controlled Current Visit: Yes Status: Acute Assessment and plan: Clinically stable and will continue current medications with sliding scale. Qualifiers: Diabetes mellitus complication status: without complication Diabetes mellitus oysterman insulin use: without oysterman use Qualified Code(s): E11.9 - Type 2 diabetes mellitus without complications (5) Hyponatremia Current Visit: Yes Status: Acute Assessment and plan: Clinically stable, will monitor. (6) Leukocytosis, unspecified Current Visit: Yes Status: Acute Assessment and plan: He remains afebrile and white count is slowly decreasing. We will continue to monitor. See CAT scan report of irregular gallbladder. Doubt this is contributing to leukocytosis, however. Qualifiers: Leukocytosis type: unspecified Qualified Code(s): D72.829 - Elevated white blood cell count, unspecified (7) Gallbladder anomaly Current Visit: Yes Status: Acute Assessment and plan: See CT scan report. Will obtain ultrasound is recommended. - Time Spent With Patient less than 15 minutes - Subjective Interval history: Patient has complaint of left shoulder pain. He is asking for something to help control pain. However, he says the pain level is only 2/10, currently. He is cold and is comforted lacing blanket sheets over him. He denies other complaints. He states things are going well with therapy and he has no other discomforts. Patient has no complaint of chest discomfort, dyspnea, orthopnea, palpitations, nausea or vomiting, constipation or diarrhea, other changes in bowel habits, difficulty with urination, rash or itching, or other new complaints. Review of systems is otherwise unremarkable. - Constitutional Vitals: Temp Pulse Resp BP Pulse Ox 97.9 F 67 18 143/70 95 01/12/18 07:10 01/12/18 07:10 01/12/18 07:10 01/12/18 07:10 01/12/18 07:10 General appearance: Present: A&O X 1, A&O X 2, pleasant, no acute distress. Absent: severe distress - Head Head exam: Present: atraumatic, normal inspection, normocephalic Additional comments: Status post craniotomy, wounds intact. Well-healed. - Eye Eye exam: Present: EOMI, PERRL, sclera anicteric - Respiratory Respiratory exam: Present: CTAB. Absent: accessory muscle use - Cardiovascular Cardiovascular exam: Present: RRR, +S1, +S2. Absent: systolic murmur - GI/Abdominal GI/Abdominal exam: Present: normal bowel sounds, soft. Absent: hepatomegaly, mass, splenomegaly, tenderness Additional comments: Obese and therefore difficult to examine. - Extremities Exam Extremities exam: Present: normal capillary refill, normal inspection, warm. Absent: calf tenderness - Neurological Exam Additional comments: Examined in bed. Patient is fatigued after therapy. Gait is not assessed. Right upper extremity with normal function and only mild left facial droop. Left extremity is not examined as patient declines because he just got comfortable in bed, lying on his left side. Internal Medicine: Result - Labs CBC & Chem 7: 01/12/18 05:30 01/12/18 05:30 Labs: Short CBC 01/12/18 Range/Units 05:30 WBC 18.6 H (4.3-11.1) K/mcL Hgb 9.8 L (12.9-16.9) g/dL Hct 29.1 L (37.5-50.1) % Plt Count 271 (140-400) K/mcL Neutrophils # 13.8 H (1.6-8.9) K/mcL BMP 01/12/18 05:30 Sodium 132 L Potassium 4.3 Chloride 100 Carbon Dioxide 24 BUN 15 Creatinine 0.97 Glucose 129 H Calcium 9.3 Liver Function 01/12/18 Range/Units 05:30 Total Bilirubin 0.5 (0.3-1.0) mg/dL Direct Bilirubin 0.1 (0.0-0.2) mg/dL AST 155 H (13-39) Units/L ALT 322 H (7-52) Units/L Alkaline Phosphatase 131 H (34-104) Units/L Albumin 2.9 L (3.5-5.7) g/dL - ABG Interpretation ABG results: PT/INR, D-dimer PT 14.2 Seconds (9.4-12.1) H 01/06/18 05:25 - VTE Documentation of Mechanical Device: Graduated compression elastic hosiery Consult Discharge Plan - Plan Referrals: Erika Baca, STORE HOST [Primary Care Provider] -
[2018-01-12 12:51] LABS: Hemoglobin A1C 6.6 %
--- NOTE | 2018-01-12 15:29 | Physical Med Progress Note ---
Date of Encounter: 01/12/18 Time of Encounter: 15:10 Assessment and Plan (1) CVA (cerebral vascular accident) Current Visit: Yes Status: Acute Assessment and plan: Slow progress in therapies. Going to bed at 19:00 and getting up early in the morning. Qualifiers: CVA mechanism: unspecified Qualified Code(s): I63.9 - Cerebral infarction, unspecified (2) Hemorrhagic stroke Current Visit: No Status: Inactive Physical Medicine-PN: Subj Interval history: Alert. C/O left shoulder ache. - Constitutional Vitals: Vital Signs Temp Pulse Resp BP Pulse Ox 01/12/18 07:10 97.9 F 67 18 143/70 95 01/11/18 19:09 98.1 F 67 18 136/70 97 01/11/18 16:00 147/82 Intake and Output 01/11/18 01/12/18 01/12/18 23:59 07:59 15:59 Intake Total 100 / 100 260 / 260 Balance 100 / 100 260 / 260 Intake: Oral 260 / 260 Free Water Intake Amount 100 / 100 Other: Meal Dinner Lunch Percent of Meal Consumed 100% 95% # Urine Diapers 1 1 Weight 99.7 kg Blood Glucose* 173 136 Patient Weight 01/12/18 23:59 Weight 99.7 kg - Extremities Exam Additional comments: Left shoulder mild subluxation. 1 finger. Discomfort around superior joint line to palpation. Does not appreciate sensation in right hemib[place]. - Neurological Exam Neurological exam: Present: alert, motor sensory deficit Additional comments: Dense left hemineglect. Physical Medicine-PN: Obj Data - Labs CBC & Chem 7: 01/12/18 05:30 01/12/18 05:30 Labs: Laboratory Results - last 24 hr 01/09/18 01/11/18 01/11/18 11:24 10:45 16:40 WBC RBC Hgb Hct MCV MCH MCHC RDW Plt Count MPV Immature Gran % Seg Neutrophils % Lymphocytes % Monocytes % Eosinophils % Basophils % Neutrophils # Lymphocytes # Monocytes # Eosinophils # Basophils # APTT Sodium Potassium Chloride Carbon Dioxide BUN Creatinine Est GFR ( Amer) Est GFR (Non-Af Amer) BUN/Creatinine Ratio Glucose POC Glucose 157 H Est Mean Plasma Glucose 143 Hemoglobin A1c 6.6 H Calculated Osmolality Calcium Total Bilirubin Direct Bilirubin Indirect Bilirubin AST ALT Alkaline Phosphatase Serum Total Protein Albumin Globulin Albumin/Globulin Ratio Hep Bs Antigen Nonreactive Hep Bs Antibody 0.15 Hepatitis C Ab Screen Nonreactive 01/11/18 01/12/18 01/12/18 20:02 05:30 05:30 WBC 18.6 H RBC 3.29 L Hgb 9.8 L Hct 29.1 L MCV 88.4 MCH 29.8 MCHC 33.7 RDW 14.1 Plt Count 271 MPV 10.3 Immature Gran % 1.9 Seg Neutrophils % 74.1 Lymphocytes % 12.6 Monocytes % 7.1 Eosinophils % 3.7 Basophils % 0.6 Neutrophils # 13.8 H Lymphocytes # 2.3 Monocytes # 1.3 Eosinophils # 0.7 H Basophils # 0.1 APTT 25.7 L Sodium Potassium Chloride Carbon Dioxide BUN Creatinine Est GFR ( Amer) Est GFR (Non-Af Amer) BUN/Creatinine Ratio Glucose POC Glucose 173 H Est Mean Plasma Glucose Hemoglobin A1c Calculated Osmolality Calcium Total Bilirubin Direct Bilirubin Indirect Bilirubin AST ALT Alkaline Phosphatase Serum Total Protein Albumin Globulin Albumin/Globulin Ratio Hep Bs Antigen Hep Bs Antibody Hepatitis C Ab Screen 01/12/18 01/12/18 01/12/18 05:30 05:30 06:55 WBC RBC Hgb Hct MCV MCH MCHC RDW Plt Count MPV Immature Gran % Seg Neutrophils % Lymphocytes % Monocytes % Eosinophils % Basophils % Neutrophils # Lymphocytes # Monocytes # Eosinophils # Basophils # APTT Sodium 132 L Potassium 4.3 Chloride 100 Carbon Dioxide 24 BUN 15 Creatinine 0.97 Est GFR ( Amer) > 60 Est GFR (Non-Af Amer) > 60 BUN/Creatinine Ratio 15 Glucose 129 H POC Glucose 136 H Est Mean Plasma Glucose Hemoglobin A1c Calculated Osmolality 277 L Calcium 9.3 Total Bilirubin 0.5 Direct Bilirubin 0.1 Indirect Bilirubin 0.4 AST 155 H ALT 322 H Alkaline Phosphatase 131 H Serum Total Protein 7.6 Albumin 2.9 L Globulin 4.7 H Albumin/Globulin Ratio 0.6 L Hep Bs Antigen Hep Bs Antibody Hepatitis C Ab Screen - Impressions Impressions Abdomen CT 01/11/18 08:47 IMPRESSION: 1. Thickening along the superior margin of the gallbladder wall with appearance of multiple outpouchings. Differential includes, but is not limited to, adenomyomatosis and gallbladder carcinoma. Recommend right upper quadrant ultrasound for further evaluation. 2. Hepatic steatosis. D/ / 01/11/2018 10:08:21 Nikolas Lama MD / char Interpreting Provider: Nikolas Lama MD - ABG Interpretation ABG results: PT/INR, D-dimer PT 14.2 Seconds (9.4-12.1) H 01/06/18 05:25 - VTE Documentation of Mechanical Device: Graduated compression elastic hosiery Consult Discharge Plan - Plan Referrals: Erika Baca PRESS TECHNICIAN [Primary Care Provider] -
[2018-01-12] MEDS: Mirtazapine 15 MG TABLET PO SCH ×2 (20:54→21:40)
[2018-01-13] MEDS ORDERED: Famotidine 20 MG TABLET PO SCH (09:00)
[2018-01-13] MEDS ORDERED: Famotidine 20 MG TABLET GTUBE SCH (09:00)
--- NOTE | 2018-01-13 10:46 | Internal Med Progress Note ---
Date of Encounter: 01/13/18 Time of Encounter: 10:40 - Assessment and plan (1) CVA (cerebral vascular accident) Current Visit: Yes Status: Acute Assessment and plan: Participating well with therapy. That fatigues easily. Continue PT\OT and will follow progress. No new neuro deficits at this time. Qualifiers: CVA mechanism: unspecified Qualified Code(s): I63.9 - Cerebral infarction, unspecified (2) Diabetes type 2, controlled Current Visit: Yes Status: Acute Assessment and plan: Clinically stable and will continue current medications with sliding scale. Qualifiers: Diabetes mellitus complication status: without complication Diabetes mellitus nursing home insulin use: without ocean transportation intermediary use Qualified Code(s): E11.9 - Type 2 diabetes mellitus without complications (3) HTN (hypertension) Current Visit: Yes Status: Chronic Assessment and plan: Clinically stable and will continue current medications. Qualifiers: Hypertension type: essential hypertension Qualified Code(s): I10 - Essential (primary) hypertension (4) Leukocytosis, unspecified Current Visit: Yes Status: Acute Assessment and plan: He remains afebrile and white count is slowly decreasing. We will continue to monitor. Qualifiers: Leukocytosis type: unspecified Qualified Code(s): D72.829 - Elevated white blood cell count, unspecified - Time Spent With Patient less than 15 minutes - Subjective Interval history: Patient resting in bed. Fatigues easily with therapy. Appetite improving. States slight pain in left shoulder but is improving. No complaints with bowel and bladder. Denies any other complaints at this time. Denies fever, chills, nausea, vomiting, diarrhea, shortness of breath or chest pain. - Constitutional Vitals: Temp Pulse Resp BP Pulse Ox 99.0 F 61 16 133/70 93 01/13/18 07:17 01/13/18 07:17 01/13/18 07:17 01/13/18 07:17 01/13/18 07:17 General appearance: Present: A&O X 1, A&O X 2, pleasant, no acute distress. Absent: severe distress - Head Head exam: Present: atraumatic, normocephalic - Eye Eye exam: Present: PERRL, conjuntiva pink, sclera anicteric Pupils: Present: PERRL - Neck Neck exam general surgery: Present: supple, trachea midline. Absent: lymphadenopathy - Respiratory Respiratory exam: Present: CTAB. Absent: accessory muscle use, rales, rhonchi, wheezes - Cardiovascular Cardiovascular exam: Present: RRR, +S1, +S2. Absent: diastolic murmur, gallop, rubs, systolic murmur - GI/Abdominal GI/Abdominal exam: Present: normal bowel sounds, soft, no peritoneal signs. Absent: distended, tenderness - Extremities Exam Extremities exam: Present: warm, radial pulses palpable and symmetrical. Absent : calf tenderness, cyanotic, pedal edema Additional comments: left hemiplegia - Neurological Exam Neurological exam: Present: CN II-XII intact, oriented X3, no focal deficits. Absent: pronater drift, facial droop, speech deficit - Skin Skin exam: Present: dry, intact Additional comments: craniotomy incision healing Internal Medicine: Result - Labs CBC & Chem 7: 01/12/18 05:30 01/12/18 05:30 - ABG Interpretation ABG results: PT/INR, D-dimer PT 14.2 Seconds (9.4-12.1) H 01/06/18 05:25 - Impressions Impressions Abdomen CT 01/11/18 08:47 IMPRESSION: 1. Thickening along the superior margin of the gallbladder wall with appearance of multiple outpouchings. Differential includes, but is not limited to, adenomyomatosis and gallbladder carcinoma. Recommend right upper quadrant ultrasound for further evaluation. 2. Hepatic steatosis. D/ / 01/11/2018 10:08:21 Nikolas Lama MD / char Interpreting Provider: Nikolas Lama MD - VTE Documentation of Mechanical Device: Graduated compression elastic hosiery Consult Discharge Plan - Plan Referrals: Erika Baca CNP [Primary Care Provider] -
[2018-01-13] MEDS: Insulin LISPRO 300 UNITS/3 ML VIAL SQ SCH ×4 (11:48→21:38)
[2018-01-13] MEDS: Simethicone 80 MG TAB.CHEW PO SCH ×3 (11:48→21:35)
[2018-01-13] MEDS: Aspirin Enteric Coated 81 MG Tablet PO SCH (11:48)
[2018-01-13] MEDS: hydrALAZINE 25 MG TABLET GTUBE SCH ×2 (11:49→20:06)
[2018-01-13] MEDS: Magic Mouthwash 10 ML UD Cup PO SCH (17:58)
[2018-01-13] MEDS: Mirtazapine 15 MG TABLET PO SCH (21:37)
[2018-01-14] MEDS: hydrALAZINE 25 MG TABLET GTUBE SCH ×4 (00:43→22:55)
[2018-01-14] MEDS: Insulin LISPRO 300 UNITS/3 ML VIAL SQ SCH ×4 (09:31→22:55)
[2018-01-14] MEDS: Magic Mouthwash 10 ML UD Cup PO SCH ×3 (09:36→17:58)
[2018-01-14] MEDS: Aspirin Enteric Coated 81 MG Tablet PO SCH (09:36)
[2018-01-14] MEDS: Acetaminophen 325 MG TABLET PO PRN ×2 (09:36→22:55)
[2018-01-14] MEDS: Simethicone 80 MG TAB.CHEW PO SCH ×3 (09:37→22:54)
--- NOTE | 2018-01-14 09:55 | Internal Med Progress Note ---
Date of Encounter: 01/14/18 Time of Encounter: 09:52 - Assessment and plan (1) CVA (cerebral vascular accident) Current Visit: Yes Status: Acute Assessment and plan: Participating well with therapy. fatigues easily. Continue PT\OT\ST and will follow progress. No new neuro deficits at this time. Qualifiers: CVA mechanism: unspecified Qualified Code(s): I63.9 - Cerebral infarction, unspecified (2) Diabetes type 2, controlled Current Visit: Yes Status: Acute Assessment and plan: Clinically stable and will continue current medications with sliding scale. monitor FSBS Qualifiers: Diabetes mellitus complication status: without complication Diabetes mellitus exterminator insulin use: without assisted use Qualified Code(s): E11.9 - Type 2 diabetes mellitus without complications (3) HTN (hypertension) Current Visit: Yes Status: Chronic Assessment and plan: Clinically stable and will continue current medications. monitor BP Qualifiers: Hypertension type: essential hypertension Qualified Code(s): I10 - Essential (primary) hypertension (4) Leukocytosis, unspecified Current Visit: Yes Status: Acute Assessment and plan: He remains afebrile and white count is slowly decreasing. We will continue to monitor. CBC ordered for am Qualifiers: Leukocytosis type: unspecified Qualified Code(s): D72.829 - Elevated white blood cell count, unspecified - Time Spent With Patient 25 - 35 minutes - Subjective Interval history: Patient currently in gym participating with physical therapy. working on standing frame with max assist. Fatigues easily with therapy. states he did not sleep well last night. Appetite good, maintaining hydration. No complaints with bowel and bladder. Denies any other complaints at this time. Denies pain , fever, chills, nausea, vomiting, diarrhea, shortness of breath or chest pain. - Constitutional Vitals: Temp Pulse Resp BP Pulse Ox 98.2 F 65 16 137/66 95 01/14/18 07:28 01/14/18 07:28 01/13/18 19:02 01/14/18 07:28 01/14/18 07:28 General appearance: Present: A&O X 1, A&O X 2, pleasant, no acute distress. Absent: severe distress - Head Head exam: Present: atraumatic, normocephalic - Eye Eye exam: Present: PERRL, conjuntiva pink, sclera anicteric Pupils: Present: PERRL - Neck Neck exam general surgery: Present: supple, trachea midline. Absent: lymphadenopathy - Respiratory Respiratory exam: Present: CTAB. Absent: accessory muscle use, rales, rhonchi, wheezes - Cardiovascular Cardiovascular exam: Present: RRR, +S1, +S2. Absent: diastolic murmur, gallop, rubs, systolic murmur - GI/Abdominal GI/Abdominal exam: Present: normal bowel sounds, soft, no peritoneal signs. Absent: distended, tenderness Additional comments: g-tube, slightly indurated, no drainage or signs of infection. - Extremities Exam Extremities exam: Present: warm, radial pulses palpable and symmetrical. Absent : calf tenderness, cyanotic, pedal edema Additional comments: left hemiplegia - Neurological Exam Neurological exam: Present: CN II-XII intact, oriented X3, no focal deficits. Absent: pronater drift, facial droop, speech deficit - Skin Skin exam: Present: dry, intact Additional comments: craniotomy incision healing well with no signs of infection. Internal Medicine: Result - Labs CBC & Chem 7: 01/12/18 05:30 01/12/18 05:30 - ABG Interpretation ABG results: PT/INR, D-dimer PT 14.2 Seconds (9.4-12.1) H 01/06/18 05:25 - Impressions Impressions Abdomen Ultrasound 01/13/18 09:13 IMPRESSION: Gallbladder wall thickening and pericholecystic fluid suggest cholecystitis. Focal wall abnormality identified on the prior CT may have reflected an area of edematous gallbladder wall thickening. The findings were sent to the Radiology Results Communication Center at 12:25 pm on 01/13/2018to be communicated to a licensed caregiver. D/ / 01/13/2018 13:09:24 Kari Robin MD / meseret Interpreting Provider: Kari Robin MD - VTE Documentation of Mechanical Device: Graduated compression elastic hosiery Consult Discharge Plan - Plan Referrals: Erika Baca CNP [Primary Care Provider] -
--- NOTE | 2018-01-14 13:40 | Physical Med Progress Note ---
Date of Encounter: 01/14/18 Time of Encounter: 13:38 Assessment and Plan (1) CVA (cerebral vascular accident) Current Visit: Yes Status: Acute Assessment and plan: Left hemiplegia, left hemisensory loss, Hemineglect, Dysphagia. Continue Rehab, Advance as tolerated.. He has trouble finding midline, so tends to lean a lot sitting and standing. Qualifiers: CVA mechanism: unspecified Qualified Code(s): I63.9 - Cerebral infarction, unspecified (2) Hemorrhagic stroke Current Visit: No Status: Inactive Physical Medicine-PN: Subj Interval history: No left shoulder pain today. BM+ - Constitutional Vitals: Vital Signs Temp Pulse Resp BP Pulse Ox 01/14/18 07:28 98.2 F 65 137/66 95 01/13/18 19:02 98.0 F 84 16 138/74 98 Intake and Output 01/13/18 01/14/18 01/14/18 23:59 07:59 15:59 Intake Total 100 / 100 200 / 200 820 / 820 Balance 100 / 100 200 / 200 820 / 820 Intake: Oral 720 / 720 Free Water Intake Amount 100 / 100 200 / 200 100 / 100 Other: Meal Lunch Percent of Meal Consumed 90% # Urine Diapers 1 1 1 Blood Glucose* 156 130 - Extremities Exam Additional comments: Flaccid LUE including shoulder. Physical Medicine-PN: Obj Data - Labs CBC & Chem 7: 01/12/18 05:30 01/12/18 05:30 Labs: Laboratory Results - last 24 hr 01/13/18 01/13/18 01/14/18 17:12 20:06 07:26 POC Glucose 134 H 156 H 130 H 01/14/18 11:22 POC Glucose 157 H Anemia, Hyponatremia, Hyperglycemia - ABG Interpretation ABG results: PT/INR, D-dimer PT 14.2 Seconds (9.4-12.1) H 01/06/18 05:25 - VTE Documentation of Mechanical Device: Graduated compression elastic hosiery Consult Discharge Plan - Plan Referrals: Erika Baca CNP [Primary Care Provider] -
[2018-01-14] MEDS: Mirtazapine 15 MG TABLET PO SCH (22:54)
[2018-01-15 07:05] LABS: Basophils # 0.1 K/mcL (0.0-0.2); Basophils % 0.6 %; Eosinophils # 0.5 K/mcL (0.0-0.6); Eosinophils % 3.3 %; Hematocrit 29.7 % (37.5-50.1); Hemoglobin 9.6 g/dL (12.9-16.9); Immature Granulocytes % 1.9 % (0-4); Lymphocytes # 2.5 K/mcL (0.6-4.6); Lymphocytes % 15.5 %; Mean Corpuscular HGB Conc 32.3 g/dL (31.6-35.5); Mean Corpuscular Hemoglobin 29.4 pg (28.0-33.3); Mean Corpuscular Volume 91.1 fL (83.0-100.0); Mean Platelet Volume 9.9 fL (9.4-12.4); Monocytes # 1.1 K/mcL (0.0-1.3); Monocytes % 6.5 %; Neutrophils # 11.7 K/mcL (1.6-8.9); Platelet Count 345 K/mcL (140-400); Red Blood Count 3.26 M/mcL (4.19-5.50); Red Cell Distribution Width 14.3 % (11.5-14.5); Segmented Neutrophils % 72.2 %
[2018-01-15 07:27] LABS: BUN/Creatinine Ratio 16 (6-26); Blood Urea Nitrogen 16 mg/dL (8-23); Calcium 9.3 mg/dL (8.6-10.3); Carbon Dioxide 24 mEq/L (23-29); Chloride 101 mEq/L (98-107); Glucose 125 mg/dL (70-105); Osmolality,Calculated 279 (280-300); Sodium 133 mEq/L (136-145); eGFR For African Americans > 60 (> 60); eGFR For Non-African Americans > 60 (> 60)
[2018-01-15] MEDS: Magic Mouthwash 10 ML UD Cup PO SCH ×2 (10:53→20:04)
[2018-01-15] MEDS: Simethicone 80 MG TAB.CHEW PO SCH ×3 (10:54→21:37)
[2018-01-15] MEDS: hydrALAZINE 25 MG TABLET GTUBE SCH ×2 (10:54→18:30)
[2018-01-15] MEDS: Insulin LISPRO 300 UNITS/3 ML VIAL SQ SCH ×3 (10:54→21:36)
[2018-01-15] MEDS: Aspirin Enteric Coated 81 MG Tablet PO SCH (10:54)
--- NOTE | 2018-01-15 12:32 | Internal Med Progress Note ---
Date of Encounter: 01/15/18 Time of Encounter: 12:30 - Assessment and plan (1) CVA (cerebral vascular accident) Current Visit: Yes Status: Acute Assessment and plan: No acute neurological deficits noted on exam. Patient continues with left hemiplegic. Patient reportedly has been progressing well with physical therapy. Patient also reported to be progressing with dysphagia diet. We will continue with current plan of care and medications.. Qualifiers: CVA mechanism: unspecified Qualified Code(s): I63.9 - Cerebral infarction, unspecified (2) Pneumonia Current Visit: No Status: Acute Assessment and plan: No acute pulmonary issues. Patient continues on Augmentin. We will continue to monitor. Qualifiers: Pneumonia type: aspiration pneumonia Aspiration pneumonia type: unspecified Laterality: left Lung location: lower lobe of lung Qualified Code(s): J69.0 - Pneumonitis due to inhalation of food and vomit (3) HTN (hypertension) Current Visit: Yes Status: Chronic Assessment and plan: Vital signs stable. We will continue with current medications. Qualifiers: Hypertension type: essential hypertension Qualified Code(s): I10 - Essential (primary) hypertension (4) Diarrhea Current Visit: Yes Status: Acute Qualifiers: Diarrhea type: unspecified type Qualified Code(s): R19.7 - Diarrhea, unspecified (5) Gallbladder anomaly Current Visit: Yes Status: Acute Assessment and plan: See CT scan report and Ultrasound report. Pt currently is asymptomatic and his leukocytosis has been trending down. Leukocytosis could possibly be secondary to pneumonia. Will continue to monitor closely with serial labs for LFT. No c/o pain. - Subjective Interval history: Patient is alert and relaxed. Patient able to answer simple questions appropriately with more complete sentences noted over the past week. Patient able to follow complex directions. Currently denies any discomforts. Patient reports patient has been doing well and has been increased on his dysphagia diet - Constitutional Vitals: Temp Pulse Resp BP Pulse Ox 98.1 F 58 14 152/76 94 01/15/18 07:45 01/15/18 07:45 01/15/18 07:45 01/15/18 07:45 01/15/18 07:45 General appearance: Present: A&O X 1, pleasant, no acute distress. Absent: severe distress Exam: Patient is oriented 1 to name. Patient able to state he is in the hospital. Unable to relate the time. - Head Head exam: Present: atraumatic, normocephalic - Eye Eye exam: Present: PERRL, conjuntiva pink, sclera anicteric Pupils: Present: PERRL - Neck Neck exam general surgery: Present: supple, trachea midline. Absent: lymphadenopathy - Respiratory Respiratory exam: Present: CTAB. Absent: accessory muscle use, rales, rhonchi, wheezes Additional comments: Lungs are clear throughout upper ferraro. Motor diminished breath sounds at bases. Respiratory effort appears relaxed - Cardiovascular Cardiovascular exam: Present: RRR, +S1, +S2. Absent: diastolic murmur, gallop, rubs, systolic murmur - GI/Abdominal GI/Abdominal exam: Present: normal bowel sounds, soft, no peritoneal signs. Absent: distended, tenderness - Extremities Exam Extremities exam: Present: warm, radial pulses palpable and symmetrical. Absent : calf tenderness, cyanotic, pedal edema - Neurological Exam Neurological exam: Present: facial droop. Absent: pronater drift, speech deficit Additional comments: Alert. Able to answer questions well after cueing. Slight left facial droop. Tongue remains midline. Right craniectomy surgical site appears to be well- healed. Patient, continues when out of bed. Left hemiplegic. Right extremities with 5/5 muscle strength. No drift noted with right arm. No hyperreflexia. - Skin Skin exam: Present: dry, intact Internal Medicine: Result - Labs CBC & Chem 7: 01/15/18 06:33 01/15/18 06:33 Labs: Short CBC 01/15/18 Range/Units 06:33 WBC 16.2 H (4.3-11.1) K/mcL Hgb 9.6 L (12.9-16.9) g/dL Hct 29.7 L (37.5-50.1) % Plt Count 345 (140-400) K/mcL Neutrophils # 11.7 H (1.6-8.9) K/mcL BMP 01/15/18 06:33 Sodium 133 L Potassium 4.0 Chloride 101 Carbon Dioxide 24 BUN 16 Creatinine 1.01 Glucose 125 H Calcium 9.3 - ABG Interpretation ABG results: PT/INR, D-dimer PT 14.2 Seconds (9.4-12.1) H 01/06/18 05:25 - VTE Documentation of Mechanical Device: Graduated compression elastic hosiery Consult Discharge Plan - Plan Referrals: Erika Baca CNP [Primary Care Provider] -
[2018-01-15] MEDS: Mirtazapine 15 MG TABLET PO SCH (21:38)
[2018-01-16] MEDS: hydrALAZINE 25 MG TABLET GTUBE SCH ×4 (00:39→23:36)
[2018-01-16] MEDS: Insulin LISPRO 300 UNITS/3 ML VIAL SQ SCH ×4 (07:54→23:35)
[2018-01-16] MEDS: Magic Mouthwash 10 ML UD Cup PO SCH ×3 (08:39→15:59)
[2018-01-16] MEDS: Aspirin Enteric Coated 81 MG Tablet PO SCH (10:21)
[2018-01-16] MEDS: Simethicone 80 MG TAB.CHEW PO SCH ×3 (10:21→23:34)
--- NOTE | 2018-01-16 14:37 | Internal Med Progress Note ---
Date of Encounter: 01/16/18 Time of Encounter: 14:34 - Assessment and plan (1) CVA (cerebral vascular accident) Current Visit: Yes Status: Acute Assessment and plan: No acute neurological deficits noted on exam. Patient continues with left hemiplegic. Patient reportedly has been progressing well with physical therapy. Patient also reported to be progressing with dysphagia diet. We will continue with current plan of care and medications.. Qualifiers: CVA mechanism: unspecified Qualified Code(s): I63.9 - Cerebral infarction, unspecified (2) Pneumonia Current Visit: No Status: Acute Assessment and plan: No acute pulmonary issues. No productive cough noted and lungs are clear to auscultation. Patient continues on Augmentin. We will continue to monitor. Qualifiers: Pneumonia type: aspiration pneumonia Aspiration pneumonia type: unspecified Laterality: left Lung location: lower lobe of lung Qualified Code(s): J69.0 - Pneumonitis due to inhalation of food and vomit (3) HTN (hypertension) Current Visit: Yes Status: Chronic Assessment and plan: Vital signs stable. We will continue with current medications. Qualifiers: Hypertension type: essential hypertension Qualified Code(s): I10 - Essential (primary) hypertension (4) Diarrhea Current Visit: No Status: Acute Qualifiers: Diarrhea type: unspecified type Qualified Code(s): R19.7 - Diarrhea, unspecified (5) Gallbladder anomaly Current Visit: Yes Status: Acute Assessment and plan: See CT scan report and Ultrasound report. Pt currently is asymptomatic and his leukocytosis has been trending down. Leukocytosis could possibly be secondary to pneumonia. Will continue to monitor closely with serial labs for LFT. No c/o pain. - Time Spent With Patient less than 15 minutes - Subjective Interval history: Patient is more alert and relaxed. Patient able to answer simple questions appropriately with more complete sentences noted over the past week. Patient able to follow complex directions. Currently denies any discomforts. Patient reports patient has been doing well and has been increased on his dysphagia diet - Constitutional Vitals: Temp Pulse Resp BP Pulse Ox 97.8 F 62 16 132/73 96 01/16/18 07:21 01/16/18 07:21 01/16/18 07:21 01/15/18 19:57 01/16/18 07:21 General appearance: Present: A&O X 1, pleasant, no acute distress. Absent: severe distress Exam: Patient is oriented to name but unable to relate time and place. - Head Head exam: Present: atraumatic, normocephalic Additional comments: Patients right craniectomy site incision appears well-healed - Eye Eye exam: Present: PERRL, conjuntiva pink, sclera anicteric Pupils: Present: PERRL - Neck Neck exam general surgery: Present: supple, trachea midline. Absent: lymphadenopathy - Respiratory Respiratory exam: Present: CTAB. Absent: accessory muscle use, rales, rhonchi, wheezes - Cardiovascular Cardiovascular exam: Present: RRR, +S1, +S2. Absent: diastolic murmur, gallop, rubs, systolic murmur - GI/Abdominal GI/Abdominal exam: Present: normal bowel sounds, soft, no peritoneal signs. Absent: distended, tenderness - Extremities Exam Extremities exam: Present: warm, radial pulses palpable and symmetrical. Absent : calf tenderness, cyanotic, pedal edema - Neurological Exam Neurological exam: Present: facial droop. Absent: pronater drift, speech deficit Additional comments: Patient continues with left hemiplegia. Right extremities show muscle strength of 5/5. Right craniectomy incision appears well-healed. - Skin Skin exam: Present: dry, intact Internal Medicine: Result - Labs CBC & Chem 7: 01/15/18 06:33 01/15/18 06:33 - ABG Interpretation ABG results: PT/INR, D-dimer PT 14.2 Seconds (9.4-12.1) H 01/06/18 05:25 - Impressions Impressions Abdomen Ultrasound 01/13/18 09:13 IMPRESSION: Gallbladder wall thickening and pericholecystic fluid suggest cholecystitis. Focal wall abnormality identified on the prior CT may have reflected an area of edematous gallbladder wall thickening. The findings were sent to the Radiology Results Communication Center at 12:25 pm on 01/13/2018to be communicated to a licensed caregiver. D/ / 01/13/2018 13:09:24 Kari Robin MD / meseret Interpreting Provider: Kari Robin MD - VTE Documentation of Mechanical Device: Graduated compression elastic hosiery Consult Discharge Plan - Plan Referrals: Erika Baca CNP [Primary Care Provider] -
[2018-01-16] MEDS: Acetaminophen 325 MG TABLET PO PRN (23:35)
[2018-01-16] MEDS: Mirtazapine 15 MG TABLET PO SCH (23:35)
--- NOTE | 2018-01-17 08:14 | Internal Med Progress Note ---
Date of Encounter: 01/17/18 Time of Encounter: 08:13 - Assessment and plan (1) Stroke determined by clinical assessment Current Visit: No Status: Acute Assessment and plan: Clinically stable and progressing with planned speech, OT, PT. (2) HTN (hypertension) Current Visit: Yes Status: Chronic Assessment and plan: Vital signs stable. We will continue with current medications. Qualifiers: Hypertension type: essential hypertension Qualified Code(s): I10 - Essential (primary) hypertension (3) Hypothyroid Current Visit: No Status: Chronic Assessment and plan: On supplementation. Qualifiers: Hypothyroidism type: unspecified Qualified Code(s): E03.9 - Hypothyroidism , unspecified (4) Diabetes type 2, controlled Current Visit: Yes Status: Acute Assessment and plan: Stable on current regimen. Will continue with sliding scale. Qualifiers: Diabetes mellitus shelter insulin use: without bandage maker use Diabetes mellitus complication status: without complication Qualified Code(s): E11.9 - Type 2 diabetes mellitus without complications (5) Hyponatremia Current Visit: Yes Status: Acute Assessment and plan: Clinically stable, will monitor. (6) Leukocytosis, unspecified Current Visit: Yes Status: Acute Assessment and plan: Decreasing and stable. We will recheck in a couple of days. Qualifiers: Leukocytosis type: unspecified Qualified Code(s): D72.829 - Elevated white blood cell count, unspecified (7) Gallbladder anomaly Current Visit: Yes Status: Acute Assessment and plan: Clinically stable and will recheck enzymes in the near future.. - Subjective Interval history: Patient has no complaint. When asked if I may do anything for him, he says, "ust let me sleep." - Constitutional Vitals: Temp Pulse Resp BP Pulse Ox 98.4 F 71 16 148/66 97 01/16/18 19:00 01/16/18 19:00 01/16/18 19:00 01/16/18 19:00 01/16/18 19:00 General appearance: Present: A&O X 1, pleasant, no acute distress. Absent: severe distress Exam: Examinatioin: (Except as mentioned above): General: In no apparent distress. Alert and oriented 3. Nondiaphoretic. Head: Atraumatic and normocephalic. Respiratory: No use of accessory muscles. Lungs are clear throughout. Normal airflow. Cardiovascular: Regular rate and rhythm without murmur appreciated. Abdomen: Bowel sounds are normal. No hepatosplenomegaly mass or tenderness appreciated. Obese and therefore difficult to palpate deeply. Extremities: No cyanosis clubbing or edema. Neurological: He still has left dense hemiparesis. He notes that he does feel gross touch sensation in the left upper extremity. He is unable to move to any confrontation, in the upper extremity. Skin: Warm and non-diaphoretic with no new lesions noted. Internal Medicine: Result - Labs CBC & Chem 7: 01/15/18 06:33 01/15/18 06:33 - ABG Interpretation ABG results: PT/INR, D-dimer PT 14.2 Seconds (9.4-12.1) H 01/06/18 05:25 - VTE Documentation of Mechanical Device: Graduated compression elastic hosiery Consult Discharge Plan - Plan Referrals: Erika Baca CNP [Primary Care Provider] -
[2018-01-17] MEDS: Magic Mouthwash 10 ML UD Cup PO SCH ×3 (09:35→16:47)
[2018-01-17] MEDS: Insulin LISPRO 300 UNITS/3 ML VIAL SQ SCH ×4 (09:35→20:37)
[2018-01-17] MEDS: Aspirin Enteric Coated 81 MG Tablet PO SCH (09:44)
[2018-01-17] MEDS: Simethicone 80 MG TAB.CHEW PO SCH ×3 (09:44→20:37)
[2018-01-17] MEDS: hydrALAZINE 25 MG TABLET GTUBE SCH ×3 (09:44→23:59)
[2018-01-17] MEDS: Acetaminophen 325 MG TABLET PO PRN (13:22)
[2018-01-17] MEDS ORDERED: Artificial Tears SOLN 15 ML BOTTLE RIGHT EYE PRN (14:55)
[2018-01-17] MEDS: Mirtazapine 15 MG TABLET PO SCH (20:37)
[2018-01-18 05:46] LABS: Alanine Aminotransferase 118 Units/L (7-52); Albumin/Globulin Ratio 0.7 (1.1-2.2); Alkaline Phosphatase 93 Units/L (34-104); Aspartate Amino Transferase 35 Units/L (13-39); BUN/Creatinine Ratio 14 (6-26); Bilirubin,Total 0.4 mg/dL (0.3-1.0); Blood Urea Nitrogen 13 mg/dL (8-23); Calcium 9.4 mg/dL (8.6-10.3); Carbon Dioxide 23 mEq/L (23-29); Chloride 103 mEq/L (98-107); Globulin 4.6 g/dL (2.4-3.5); Glucose 113 mg/dL (70-105); Osmolality,Calculated 279 (280-300); Potassium 3.9 mEq/L (3.5-5.1); Sodium 134 mEq/L (136-145); Total Protein 7.6 g/dL (6.4-8.9); eGFR For African Americans > 60 (> 60); eGFR For Non-African Americans > 60 (> 60)
[2018-01-18] MEDS: Simethicone 80 MG TAB.CHEW PO SCH ×3 (07:38→20:22)
[2018-01-18] MEDS: Aspirin Enteric Coated 81 MG Tablet PO SCH (07:38)
[2018-01-18] MEDS: hydrALAZINE 25 MG TABLET GTUBE SCH ×3 (07:38→23:50)
[2018-01-18] MEDS: Insulin LISPRO 300 UNITS/3 ML VIAL SQ SCH ×4 (07:39→23:09)
[2018-01-18] MEDS: Magic Mouthwash 10 ML UD Cup PO SCH ×3 (07:39→17:20)
--- NOTE | 2018-01-18 17:58 | Internal Med Progress Note ---
Date of Encounter: 01/18/18 Time of Encounter: 17:57 - Assessment and plan (1) Stroke determined by clinical assessment Current Visit: No Status: Acute Assessment and plan: Clinically stable and progressing with planned speech, OT, PT. (2) HTN (hypertension) Current Visit: Yes Status: Chronic Assessment and plan: Vital signs stable. We will continue with current medications. Qualifiers: Hypertension type: essential hypertension Qualified Code(s): I10 - Essential (primary) hypertension (3) Hypothyroid Current Visit: No Status: Chronic Assessment and plan: On supplementation. Qualifiers: Hypothyroidism type: unspecified Qualified Code(s): E03.9 - Hypothyroidism , unspecified (4) Diabetes type 2, controlled Current Visit: Yes Status: Acute Assessment and plan: Stable on current regimen. Will continue with sliding scale. Qualifiers: Diabetes mellitus detention insulin use: without oil heaterman use Diabetes mellitus complication status: without complication Qualified Code(s): E11.9 - Type 2 diabetes mellitus without complications (5) Hyponatremia Current Visit: Yes Status: Acute Assessment and plan: Clinically stable, will follow. (6) Leukocytosis, unspecified Current Visit: Yes Status: Acute Assessment and plan: Decreasing and stable. We will recheck white count 5 CBC tomorrow morning. Qualifiers: Leukocytosis type: unspecified Qualified Code(s): D72.829 - Elevated white blood cell count, unspecified (7) Gallbladder anomaly Current Visit: Yes Status: Acute Assessment and plan: Clinically stable and will recheck enzymes in the near future.. - Time Spent With Patient 25 - 35 minutes - Subjective Interval history: Patient is without complaint. He states that his arm is feeling better. He still has latent sensation at his upper and lower extremities and absolutely no movement. He is somewhat frustrated with that. He is participating with therapies and is hopeful that this will continue to improve. Patient has no complaint of chest discomfort, dyspnea, orthopnea, palpitations, nausea or vomiting, constipation or diarrhea, other changes in bowel habits, difficulty with urination, rash or itching, or other new complaints. Review of systems is otherwise unremarkable. - Constitutional Vitals: Temp Pulse Resp BP Pulse Ox 98 F 69 16 152/82 96 01/18/18 16:10 01/18/18 16:10 01/18/18 16:10 01/18/18 16:10 01/18/18 16:10 General appearance: Present: A&O X 1, pleasant, no acute distress. Absent: severe distress Exam: Examinatioin: (Except as mentioned above): General: In no apparent distress. Alert and oriented 3. Nondiaphoretic. Head: Atraumatic and normocephalic. Respiratory: No use of accessory muscles. Lungs are clear throughout. Normal airflow. Cardiovascular: Regular rate and rhythm without murmur appreciated. Abdomen: Bowel sounds are normal. No hepatosplenomegaly mass or tenderness appreciated. Obese and therefore difficult to palpate deeply. Extremities: No cyanosis clubbing or edema. Neurologic: Still with dense left hemiparesis. Skin: Warm and non-diaphoretic with no new lesions noted. Internal Medicine: Result - Labs CBC & Chem 7: 01/15/18 06:33 01/18/18 04:42 Labs: BMP 01/18/18 04:42 Sodium 134 L Potassium 3.9 Chloride 103 Carbon Dioxide 23 BUN 13 Creatinine 0.94 Glucose 113 H Calcium 9.4 Liver Function 01/18/18 Range/Units 04:42 Total Bilirubin 0.4 (0.3-1.0) mg/dL AST 35 (13-39) Units/L ALT 118 H (7-52) Units/L Alkaline Phosphatase 93 (34-104) Units/L Albumin 3.0 L (3.5-5.7) g/dL - ABG Interpretation ABG results: PT/INR, D-dimer PT 14.2 Seconds (9.4-12.1) H 01/06/18 05:25 - VTE Documentation of Mechanical Device: Graduated compression elastic hosiery Consult Discharge Plan - Plan Referrals: Erika Baca COMMERCIAL MANAGEMENT ACCOUNTANT [Primary Care Provider] -
[2018-01-18] MEDS: Mirtazapine 15 MG TABLET PO SCH (20:21)
[2018-01-19 05:53] LABS: Basophils # 0.1 K/mcL (0.0-0.2); Basophils % 0.7 %; Eosinophils # 0.4 K/mcL (0.0-0.6); Eosinophils % 2.6 %; Hematocrit 32.1 % (37.5-50.1); Hemoglobin 10.5 g/dL (12.9-16.9); Immature Granulocytes % 0.7 % (0-4); Lymphocytes % 19.2 %; Mean Corpuscular HGB Conc 32.7 g/dL (31.6-35.5); Mean Corpuscular Hemoglobin 29.5 pg (28.0-33.3); Mean Corpuscular Volume 90.2 fL (83.0-100.0); Mean Platelet Volume 9.3 fL (9.4-12.4); Neutrophils # 9.6 K/mcL (1.6-8.9); Platelet Count 432 K/mcL (140-400); Red Blood Count 3.56 M/mcL (4.19-5.50); Red Cell Distribution Width 14.8 % (11.5-14.5); Segmented Neutrophils % 69.8 %
[2018-01-19] MEDS: Acetaminophen 325 MG TABLET PO PRN (05:54)
[2018-01-19 06:08] LABS: BUN/Creatinine Ratio 15 (6-26); Blood Urea Nitrogen 14 mg/dL (8-23); Calcium 9.6 mg/dL (8.6-10.3); Carbon Dioxide 23 mEq/L (23-29); Chloride 103 mEq/L (98-107); Glucose 109 mg/dL (70-105); Osmolality,Calculated 279 (280-300); Potassium 3.8 mEq/L (3.5-5.1); Sodium 134 mEq/L (136-145); eGFR For African Americans > 60 (> 60); eGFR For Non-African Americans > 60 (> 60)
[2018-01-19 06:09] LABS: Albumin/Globulin Ratio 0.6 (1.1-2.2); Bilirubin,Direct 0.1 mg/dL (0.0-0.2); Bilirubin,Indirect 0.4 mg/dL (0.0-1.2); Bilirubin,Total 0.5 mg/dL (0.3-1.0); Globulin 4.8 g/dL (2.4-3.5); Total Protein 7.8 g/dL (6.4-8.9)
[2018-01-19 06:39] LABS: Lymphocytes # 2.7 K/mcL (0.6-4.6)
[2018-01-19] MEDS: Insulin LISPRO 300 UNITS/3 ML VIAL SQ SCH ×4 (08:08→20:30)
[2018-01-19] MEDS: Magic Mouthwash 10 ML UD Cup PO SCH ×2 (08:08→18:53)
--- NOTE | 2018-01-19 12:16 | Internal Med Progress Note ---
Date of Encounter: 01/19/18 Time of Encounter: 12:14 - Assessment and plan (1) CVA (cerebral vascular accident) Current Visit: Yes Status: Acute Assessment and plan: No acute neurological deficits noted on exam. Patient continues with left hemiplegic. Right craniectomy surgical wound appears fairly. Patient reportedly has been progressing well with physical therapy and speech therapy. Continues to progress with dysphagia diet. We will continue with current plan of care and medications.. Qualifiers: CVA mechanism: unspecified Qualified Code(s): I63.9 - Cerebral infarction, unspecified (2) Pneumonia Current Visit: No Status: Acute Assessment and plan: Patient has finished antibiotics. Lungs are clear to auscultation. No productive cough and no reports of hypoxia. Afebrile Pneumonia likely resolved. We will continue to monitor closely Qualifiers: Pneumonia type: aspiration pneumonia Aspiration pneumonia type: unspecified Laterality: left Lung location: lower lobe of lung Qualified Code(s): J69.0 - Pneumonitis due to inhalation of food and vomit (3) HTN (hypertension) Current Visit: Yes Status: Chronic Assessment and plan: Vital signs stable. We will continue with current medications. Qualifiers: Hypertension type: essential hypertension Qualified Code(s): I10 - Essential (primary) hypertension (4) Diarrhea Current Visit: No Status: Acute Assessment and plan: Pt with no further reports of diarrhea. Patient actually with complaints of feeling constipated. We will review patient's last BM. Qualifiers: Diarrhea type: unspecified type Qualified Code(s): R19.7 - Diarrhea, unspecified (5) Gallbladder anomaly Current Visit: Yes Status: Acute Assessment and plan: Clinically stable and will recheck enzymes in the near future.. - Subjective Interval history: Patient is more alert and relaxed. Patient did state that he felt like he needed to have a bowel movement and feels constipated. Patient's verbal response has been improving with more complex answers to questions. Patient also noted to be initiating conversation. Patient able to follow complex directions. Currently denies any discomforts. Patient reports patient has been doing well and has been increased on his dysphagia diet - Constitutional Vitals: Temp Pulse Resp BP Pulse Ox 97.6 F 62 17 137/77 96 01/19/18 05:39 01/19/18 05:39 01/19/18 05:39 01/19/18 05:39 01/19/18 05:39 General appearance: Present: A&O X 2, pleasant, no acute distress. Absent: severe distress Exam: Patient oriented 2. Patient unable to recall time. Continues to have some issues with short-term memory - Head Head exam: Present: atraumatic, normocephalic - Eye Eye exam: Present: PERRL, conjuntiva pink, sclera anicteric Pupils: Present: PERRL - Neck Neck exam general surgery: Present: supple, trachea midline. Absent: lymphadenopathy - Respiratory Respiratory exam: Present: CTAB. Absent: accessory muscle use, rales, rhonchi, wheezes - Cardiovascular Cardiovascular exam: Present: RRR, +S1, +S2. Absent: diastolic murmur, gallop, rubs, systolic murmur - GI/Abdominal GI/Abdominal exam: Present: normal bowel sounds, soft, no peritoneal signs. Absent: distended, tenderness - Extremities Exam Extremities exam: Present: warm, radial pulses palpable and symmetrical. Absent : calf tenderness, cyanotic, pedal edema - Neurological Exam Neurological exam: Present: facial droop. Absent: pronater drift, speech deficit Additional comments: No acute neurological deficits noted on exam. Patient continues have left hemiplegia. Right craniectomy surgical site appears healthy. Patient has been improving with his speech and has been in advancing on his dysphagia diet. Patient continues to progress with physical therapy. We will continue with current plan of care - Skin Skin exam: Present: dry, intact Internal Medicine: Result - Labs CBC & Chem 7: 01/19/18 05:25 01/19/18 05:25 Labs: Short CBC 01/19/18 Range/Units 05:25 WBC 13.8 H (4.3-11.1) K/mcL Hgb 10.5 L (12.9-16.9) g/dL Hct 32.1 L (37.5-50.1) % Plt Count 432 H (140-400) K/mcL Neutrophils # 9.6 H (1.6-8.9) K/mcL BMP 01/19/18 05:25 Sodium 134 L Potassium 3.8 Chloride 103 Carbon Dioxide 23 BUN 14 Creatinine 0.93 Glucose 109 H Calcium 9.6 Liver Function 01/19/18 Range/Units 05:25 Total Bilirubin 0.5 (0.3-1.0) mg/dL Direct Bilirubin 0.1 (0.0-0.2) mg/dL AST 30 (13-39) Units/L ALT 102 H (7-52) Units/L Alkaline Phosphatase 95 (34-104) Units/L Albumin 3.0 L (3.5-5.7) g/dL - ABG Interpretation ABG results: PT/INR, D-dimer PT 14.2 Seconds (9.4-12.1) H 01/06/18 05:25 - VTE Documentation of Mechanical Device: Graduated compression elastic hosiery Consult Discharge Plan - Plan Referrals: Erika Baca, [employer] F[employer]IT[employer] [Primary Care Provider] -
[2018-01-19] MEDS: hydrALAZINE 25 MG TABLET GTUBE SCH ×3 (12:22→23:17)
[2018-01-19] MEDS: Aspirin Enteric Coated 81 MG Tablet PO SCH (12:22)
[2018-01-19] MEDS: Simethicone 80 MG TAB.CHEW PO SCH ×3 (12:22→20:30)
[2018-01-19] MEDS ORDERED: Bisacodyl 10 MG RECTAL SUPPOSITORY RC PRN (15:48)
--- NOTE | 2018-01-19 19:49 | Physical Med Progress Note ---
Date of Encounter: 01/19/18 Time of Encounter: 16:15 Assessment and Plan (1) CVA (cerebral vascular accident) Current Visit: Yes Status: Acute Assessment and plan: Slow progress. Continue therapies. Qualifiers: CVA mechanism: unspecified Qualified Code(s): I63.9 - Cerebral infarction, unspecified (2) Hemorrhagic stroke Current Visit: No Status: Inactive Physical Medicine-PN: Subj Interval history: No complaints. Incontinent stool in bed. Tolerating thin liquids. Poor trunk control/ trunk weakness. - Constitutional Vitals: Vital Signs Temp Pulse Resp BP Pulse Ox 01/19/18 19:12 98.4 F 79 18 143/63 96 01/19/18 05:39 97.6 F 62 17 137/77 96 Intake and Output 01/19/18 01/19/18 01/19/18 07:59 15:59 23:59 Other: Meal Dinner Percent of Meal Consumed 65% Stool Size Smear Small Large Stool Consistency soft soft formed Stool Characteristics Normal for Patient Stool Color Brown Brown Blood Tinged # Urine Diapers 1 # Bowel Movements 1 # Bowel Movement Diapers 1 Blood Glucose* 127 151 - Extremities Exam Additional comments: Left side flaccid. Poor spatial awareness. - Neurological Exam Neurological exam: Present: alert, altered, motor sensory deficit Additional comments: Poor recent memory. Fair remote memory. Physical Medicine-PN: Obj Data - Labs CBC & Chem 7: 01/19/18 05:25 01/19/18 05:25 Labs: Laboratory Results - last 24 hr 01/18/18 01/18/18 01/18/18 05:52 10:10 14:45 WBC RBC Hgb Hct MCV MCH MCHC RDW Plt Count MPV Immature Gran % Seg Neutrophils % Lymphocytes % Monocytes % Eosinophils % Basophils % Neutrophils # Lymphocytes # Monocytes # Eosinophils # Basophils # APTT Sodium Potassium Chloride Carbon Dioxide BUN Creatinine Est GFR ( Amer) Est GFR (Non-Af Amer) BUN/Creatinine Ratio Glucose POC Glucose 107 H 111 H 146 H Calculated Osmolality Calcium Total Bilirubin Direct Bilirubin Indirect Bilirubin AST ALT Alkaline Phosphatase Serum Total Protein Albumin Globulin Albumin/Globulin Ratio 01/18/18 01/19/18 01/19/18 20:50 05:25 05:25 WBC 13.8 H RBC 3.56 L Hgb 10.5 L Hct 32.1 L MCV 90.2 MCH 29.5 MCHC 32.7 RDW 14.8 H Plt Count 432 H MPV 9.3 L Immature Gran % 0.7 Seg Neutrophils % 69.8 Lymphocytes % 19.2 Monocytes % 7.0 Eosinophils % 2.6 Basophils % 0.7 Neutrophils # 9.6 H Lymphocytes # 2.7 Monocytes # 1.0 Eosinophils # 0.4 Basophils # 0.1 APTT 25.6 L Sodium Potassium Chloride Carbon Dioxide BUN Creatinine Est GFR ( Amer) Est GFR (Non-Af Amer) BUN/Creatinine Ratio Glucose POC Glucose 112 H Calculated Osmolality Calcium Total Bilirubin Direct Bilirubin Indirect Bilirubin AST ALT Alkaline Phosphatase Serum Total Protein Albumin Globulin Albumin/Globulin Ratio 01/19/18 01/19/18 01/19/18 05:25 05:25 11:01 WBC RBC Hgb Hct MCV MCH MCHC RDW Plt Count MPV Immature Gran % Seg Neutrophils % Lymphocytes % Monocytes % Eosinophils % Basophils % Neutrophils # Lymphocytes # Monocytes # Eosinophils # Basophils # APTT Sodium 134 L Potassium 3.8 Chloride 103 Carbon Dioxide 23 BUN 14 Creatinine 0.93 Est GFR ( Amer) > 60 Est GFR (Non-Af Amer) > 60 BUN/Creatinine Ratio 15 Glucose 109 H POC Glucose 127 H Calculated Osmolality 279 L Calcium 9.6 Total Bilirubin 0.5 Direct Bilirubin 0.1 Indirect Bilirubin 0.4 AST 30 ALT 102 H Alkaline Phosphatase 95 Serum Total Protein 7.8 Albumin 3.0 L Globulin 4.8 H Albumin/Globulin Ratio 0.6 L Anemia, Hyponatremia. - ABG Interpretation ABG results: PT/INR, D-dimer PT 14.2 Seconds (9.4-12.1) H 01/06/18 05:25 - VTE Documentation of Mechanical Device: Graduated compression elastic hosiery Consult Discharge Plan - Plan Referrals: Erika Baca, [employer] MANAGER [Primary Care Provider] -
[2018-01-19] MEDS: Mirtazapine 15 MG TABLET PO SCH (20:30)
[2018-01-20] MEDS: Insulin LISPRO 300 UNITS/3 ML VIAL SQ SCH ×4 (08:16→21:59)
[2018-01-20] MEDS: Simethicone 80 MG TAB.CHEW PO SCH ×3 (08:19→21:59)
[2018-01-20] MEDS: Aspirin Enteric Coated 81 MG Tablet PO SCH (08:19)
[2018-01-20] MEDS: hydrALAZINE 25 MG TABLET GTUBE SCH ×3 (08:19→23:27)
--- NOTE | 2018-01-20 11:26 | Internal Med Progress Note ---
Date of Encounter: 01/20/18 Time of Encounter: 11:24 - Assessment and plan (1) CVA (cerebral vascular accident) Current Visit: Yes Status: Acute Assessment and plan: No new neurological deficits. Left-sided hemiplegia. Continues to participate with PT\OT\ST. Fatigues easily. Will continue to monitor Qualifiers: CVA mechanism: unspecified Qualified Code(s): I63.9 - Cerebral infarction, unspecified (2) Diabetes type 2, controlled Current Visit: Yes Status: Acute Assessment and plan: Controlled with current medications. Continue to monitor fingerstick blood sugars and will adjust medications as necessary. Qualifiers: Diabetes mellitus fdc insulin use: without pulling unit floorhand use Diabetes mellitus complication status: without complication Qualified Code(s): E11.9 - Type 2 diabetes mellitus without complications (3) HTN (hypertension) Current Visit: Yes Status: Chronic Assessment and plan: Stable with current medications. Monitor blood pressure Qualifiers: Hypertension type: essential hypertension Qualified Code(s): I10 - Essential (primary) hypertension (4) Leukocytosis, unspecified Current Visit: Yes Status: Acute Assessment and plan: Improving. No signs of infection. Will repeat CBC on Qualifiers: Leukocytosis type: unspecified Qualified Code(s): D72.829 - Elevated white blood cell count, unspecified - Time Spent With Patient less than 15 minutes - Subjective Interval history: Patient currently resting in bed. Very fatigued and not answering questions well at this time. participated well with therapy this morning working on standing frame with max assist. Fatigues easily with therapy. Appetite good, maintaining hydration. No complaints with bowel and bladder. Denies any other complaints at this time. Denies pain, fever, chills, nausea, vomiting, diarrhea, shortness of breath or chest pain. - Constitutional Vitals: Temp Pulse Resp BP Pulse Ox 98.4 F 79 18 125/57 96 01/19/18 19:12 01/19/18 23:22 01/19/18 19:12 01/19/18 23:22 01/19/18 19:12 General appearance: Present: A&O X 2, pleasant, no acute distress. Absent: severe distress Exam: fatigue - Head Head exam: Present: atraumatic, normocephalic - Eye Eye exam: Present: PERRL, conjuntiva pink, sclera anicteric Pupils: Present: PERRL - Neck Neck exam general surgery: Present: supple, trachea midline. Absent: lymphadenopathy - Respiratory Respiratory exam: Present: CTAB. Absent: accessory muscle use, rales, rhonchi, wheezes - Cardiovascular Cardiovascular exam: Present: RRR, +S1, +S2. Absent: diastolic murmur, gallop, rubs, systolic murmur - GI/Abdominal GI/Abdominal exam: Present: normal bowel sounds, soft, no peritoneal signs. Absent: distended, tenderness - Extremities Exam Extremities exam: Present: warm, radial pulses palpable and symmetrical. Absent : calf tenderness, cyanotic, pedal edema Additional comments: left hemiplegia - Neurological Exam Neurological exam: Present: CN II-XII intact, oriented X3, no focal deficits. Absent: pronater drift, facial droop, speech deficit - Skin Skin exam: Present: dry, intact Internal Medicine: Result - Labs CBC & Chem 7: 01/19/18 05:25 01/19/18 05:25 - ABG Interpretation ABG results: PT/INR, D-dimer PT 14.2 Seconds (9.4-12.1) H 01/06/18 05:25 - VTE Documentation of Mechanical Device: Graduated compression elastic hosiery Consult Discharge Plan - Plan Referrals: Erika Baca CNP [Primary Care Provider] -
[2018-01-20] MEDS: Mirtazapine 15 MG TABLET PO SCH (21:58)
[2018-01-21] MEDS: Acetaminophen 325 MG TABLET PO PRN (04:42)
[2018-01-21] MEDS: Simethicone 80 MG TAB.CHEW PO SCH ×3 (10:00→20:17)
[2018-01-21] MEDS: Insulin LISPRO 300 UNITS/3 ML VIAL SQ SCH ×4 (10:01→20:19)
[2018-01-21] MEDS: hydrALAZINE 25 MG TABLET GTUBE SCH ×2 (10:01→16:27)
[2018-01-21] MEDS: Aspirin Enteric Coated 81 MG Tablet PO SCH (10:01)
--- NOTE | 2018-01-21 14:36 | Physical Med Progress Note ---
Date of Encounter: 01/21/18 Time of Encounter: 13:10 Assessment and Plan (1) CVA (cerebral vascular accident) Current Visit: Yes Status: Acute Assessment and plan: Slow progress. Will initiate Bowel and bladder training. Lidoderm patch for left shoulder pain. Discussed with Dr. Craft re h/o left shoulder trauma and poss MRI Left shoulder. EDC TBD Qualifiers: CVA mechanism: unspecified Qualified Code(s): I63.9 - Cerebral infarction, unspecified (2) Hemorrhagic stroke Current Visit: No Status: Inactive Physical Medicine-PN: Subj Interval history: No c/o of left shoulder pain, standing in PT. Had bowel accident in AM. Trunk control improved to where he can use bedside commode now. - Constitutional Vitals: Vital Signs Temp Pulse Resp BP Pulse Ox 01/21/18 07:17 98.4 F 71 16 109/61 96 01/20/18 19:21 98.0 F 78 18 132/77 96 Intake and Output 01/20/18 01/21/18 01/21/18 23:59 07:59 15:59 Intake Total 760 / 760 440 / 440 Balance 760 / 760 440 / 440 Intake: Oral 360 / 360 240 / 240 Free Water 200 / 200 Free Water Intake Amount 200 / 200 200 / 200 Other: Meal Dinner Breakfast Percent of Meal Consumed 75% 50% # Urine Diapers 1 1 Blood Glucose* 131 117 146 General appearance: cooperative, no acute distress - Head Additional comments: Large right skull defect - Neck Neck exam: Present: full ROM - Extremities Exam Additional comments: Able to weight shift onto left leg. Poor trunk control with max assist X2. Left shoulder subluxation and pain with abduction. Physical Medicine-PN: Obj Data - Labs CBC & Chem 7: 01/19/18 05:25 01/19/18 05:25 Labs: Laboratory Results - last 24 hr 01/20/18 01/20/18 01/21/18 16:39 20:06 07:25 POC Glucose 110 H 131 H 117 H Anemia. Blood sugar under control - ABG Interpretation ABG results: PT/INR, D-dimer PT 14.2 Seconds (9.4-12.1) H 01/06/18 05:25 - VTE Documentation of Mechanical Device: Graduated compression elastic hosiery Consult Discharge Plan - Plan Referrals: Erika Baca CNP [Primary Care Provider] -
--- NOTE | 2018-01-21 14:41 | Internal Med Progress Note ---
Date of Encounter: 01/21/18 Time of Encounter: 14:39 - Assessment and plan (1) CVA (cerebral vascular accident) Current Visit: Yes Status: Acute Assessment and plan: No known acute neurological deficits noted since last exam. Continued left hemiplegia. Right craniectomy site appears well-healed. We will continue with use of helmet when mobilizing. Patient has been progressing well with physical therapy and was noted to be improving somewhat on his speech communication. We will continue with current plan of care. Qualifiers: Qualified Code(s): I63.9 - Cerebral infarction, unspecified - Time Spent With Patient less than 15 minutes - Subjective Interval history: Patient is more alert and relaxed. Patient did state that he felt like he needed to have a bowel movement and feels constipated. Patient's verbal response has been improving with more complex answers to questions. Patient also noted to be initiating conversation. Patient able to follow complex directions. Currently denies any discomforts. Patient reports patient has been doing well and has been increased on his dysphagia diet - Constitutional Vitals: Temp Pulse Resp BP Pulse Ox 98.4 F 71 16 109/61 96 01/21/18 07:17 01/21/18 07:17 01/21/18 07:17 01/21/18 07:17 01/21/18 07:17 General appearance: Present: A&O X 2, pleasant, no acute distress. Absent: severe distress - Head Head exam: Present: atraumatic, normocephalic Additional comments: Right craniectomy surgical site appears well-healed. Helmet and use when mobilizing out of bed - Eye Eye exam: Present: PERRL, conjuntiva pink, sclera anicteric Pupils: Present: PERRL - Neck Neck exam general surgery: Present: supple, trachea midline. Absent: lymphadenopathy - Respiratory Respiratory exam: Present: CTAB. Absent: accessory muscle use, rales, rhonchi, wheezes - Cardiovascular Cardiovascular exam: Present: RRR, +S1, +S2. Absent: diastolic murmur, gallop, rubs, systolic murmur - GI/Abdominal GI/Abdominal exam: Present: normal bowel sounds, soft, no peritoneal signs. Absent: distended, tenderness - Extremities Exam Extremities exam: Present: warm, radial pulses palpable and symmetrical. Absent : calf tenderness, cyanotic, pedal edema - Neurological Exam Neurological exam: Absent: pronater drift, facial droop, speech deficit Additional comments: No acute neurological deficits have been noticed since last exam. Patient continues with left hemiplegia. Right craniectomy site appears to be healing well. Patient's speech interaction has been improving somewhat over the past week. Patient has been advancing and his dysphagia diet tolerating well. - Skin Skin exam: Present: dry, intact Internal Medicine: Result - Labs CBC & Chem 7: 01/19/18 05:25 01/19/18 05:25 - ABG Interpretation ABG results: PT/INR, D-dimer PT 14.2 Seconds (9.4-12.1) H 01/06/18 05:25 - VTE Documentation of Mechanical Device: Graduated compression elastic hosiery Consult Discharge Plan - Plan Referrals: Erika Baca CNP [Primary Care Provider] -
[2018-01-21] MEDS: Mirtazapine 15 MG TABLET PO SCH (20:18)
[2018-01-22] MEDS: hydrALAZINE 25 MG TABLET GTUBE SCH ×3 (00:09→17:00)
[2018-01-22 07:08] LABS: Basophils # 0.1 K/mcL (0.0-0.2); Basophils % 0.9 %; Eosinophils # 0.8 K/mcL (0.0-0.6); Eosinophils % 5.3 %; Hematocrit 31.3 % (37.5-50.1); Immature Granulocytes % 0.5 % (0-4); Lymphocytes # 2.1 K/mcL (0.6-4.6); Lymphocytes % 15.1 %; Mean Corpuscular HGB Conc 31.9 g/dL (31.6-35.5); Mean Corpuscular Hemoglobin 29.4 pg (28.0-33.3); Mean Corpuscular Volume 92.1 fL (83.0-100.0); Mean Platelet Volume 9.7 fL (9.4-12.4); Monocytes # 0.9 K/mcL (0.0-1.3); Monocytes % 6.7 %; Neutrophils # 10.1 K/mcL (1.6-8.9); Platelet Count 415 K/mcL (140-400); Red Cell Distribution Width 15.5 % (11.5-14.5); Segmented Neutrophils % 71.5 %
[2018-01-22] MEDS: Insulin LISPRO 300 UNITS/3 ML VIAL SQ SCH ×4 (08:39→21:01)
[2018-01-22] MEDS: Aspirin Enteric Coated 81 MG Tablet PO SCH (09:51)
[2018-01-22] MEDS: Simethicone 80 MG TAB.CHEW PO SCH ×3 (09:51→21:01)
--- NOTE | 2018-01-22 12:17 | Internal Med Progress Note ---
Date of Encounter: 01/22/18 Time of Encounter: 12:16 - Assessment and plan (1) Stroke determined by clinical assessment Current Visit: No Status: Acute Assessment and plan: We will continue with therapy, as planned. He is participating well and continues to improve in terms of core strength and stability, per therapist's. (2) HTN (hypertension) Current Visit: Yes Status: Chronic Assessment and plan: Clinically stable. We will continue current regimen. Qualifiers: Hypertension type: essential hypertension Qualified Code(s): I10 - Essential (primary) hypertension (3) Hypothyroid Current Visit: No Status: Chronic Assessment and plan: Clinically stable on supplementation. Qualifiers: Hypothyroidism type: unspecified Qualified Code(s): E03.9 - Hypothyroidism , unspecified (4) Diabetes type 2, controlled Current Visit: Yes Status: Acute Assessment and plan: Stable; will continue current regimen including sliding scale insulin coverage. Qualifiers: Diabetes mellitus correction insulin use: without equipment operator intermodal yard use Diabetes mellitus complication status: without complication Qualified Code(s): E11.9 - Type 2 diabetes mellitus without complications (5) Hyponatremia Current Visit: Yes Status: Acute Assessment and plan: Improved. (6) Leukocytosis, unspecified Current Visit: Yes Status: Acute Assessment and plan: This is slowly progressive and the etiology is uncertain. We will continue to follow. He has no infectious signs or symptoms and has no documented infection. Qualifiers: Leukocytosis type: unspecified Qualified Code(s): D72.829 - Elevated white blood cell count, unspecified (7) Gallbladder anomaly Current Visit: Yes Status: Acute Assessment and plan: Clinically stable. We will monitor carefully to make sure this is not the cause of his leukocytosis. - Time Spent With Patient 25 - 35 minutes - Subjective Interval history: Patient's only complaint is his left shoulder pain. This is mild in degree and essentially unchanged. He denies tenderness or problem at the site where G-tube was removed yesterday. Bowel program was begun by Dr. Mandel, yesterday. Will follow. Patient has no complaint of chest discomfort, dyspnea, orthopnea, palpitations, nausea or vomiting, constipation or diarrhea, other changes in bowel habits, difficulty with urination, rash or itching, or other new complaints. Review of systems is otherwise unremarkable. - Constitutional Vitals: Temp Pulse Resp BP Pulse Ox 97.4 F L 70 18 134/79 97 01/21/18 19:26 01/22/18 04:00 01/21/18 19:26 01/22/18 11:45 01/21/18 19:26 General appearance: Present: A&O X 2, pleasant, no acute distress. Absent: severe distress Exam: Examinatioin: (Except as mentioned above): General: In no apparent distress. Alert and oriented 3. Nondiaphoretic. Head: Atraumatic and normocephalic. Respiratory: No use of accessory muscles. Lungs are clear throughout. Normal airflow. Cardiovascular: Regular rate and rhythm without murmur appreciated. Abdomen: Bowel sounds are normal. No hepatosplenomegaly mass or tenderness appreciated. Obese and therefore difficult to palpate deeply. Extremities: No cyanosis clubbing or edema. Pain with range of motion of left upper extremity and upper biceps, medially, with palpable muscle spasm. Neurologic: Persistent dense left hemiparesis. Skin: Warm and non-diaphoretic with no new lesions noted. Internal Medicine: Result - Labs CBC & Chem 7: 01/22/18 06:37 01/19/18 05:25 Labs: Short CBC 01/22/18 Range/Units 06:37 WBC 14.1 H (4.3-11.1) K/mcL Hgb 10.0 L (12.9-16.9) g/dL Hct 31.3 L (37.5-50.1) % Plt Count 415 H (140-400) K/mcL Neutrophils # 10.1 H (1.6-8.9) K/mcL - ABG Interpretation ABG results: PT/INR, D-dimer PT 14.2 Seconds (9.4-12.1) H 01/06/18 05:25 - VTE Documentation of Mechanical Device: Graduated compression elastic hosiery Consult Discharge Plan - Plan Referrals: Keven,Erika Stanton CNP [Primary Care Provider] -
[2018-01-22] MEDS: Bisacodyl 10 MG RECTAL SUPPOSITORY RC SCH (18:41)
[2018-01-22] MEDS: Acetaminophen 325 MG TABLET PO PRN (21:01)
[2018-01-22] MEDS: Mirtazapine 15 MG TABLET PO SCH (21:01)
[2018-01-23] MEDS: hydrALAZINE 25 MG TABLET GTUBE SCH ×3 (01:15→17:23)
[2018-01-23] MEDS: Insulin LISPRO 300 UNITS/3 ML VIAL SQ SCH ×4 (08:37→21:02)
[2018-01-23] MEDS: Simethicone 80 MG TAB.CHEW PO SCH ×3 (08:47→20:02)
[2018-01-23] MEDS: Aspirin Enteric Coated 81 MG Tablet PO SCH (08:47)
[2018-01-23] MEDS: Bisacodyl 10 MG RECTAL SUPPOSITORY RC SCH ×2 (08:49→18:24)
--- NOTE | 2018-01-23 12:52 | Internal Med Progress Note ---
Date of Encounter: 01/23/18 Time of Encounter: 12:49 - Assessment and plan (1) CVA (cerebral vascular accident) Current Visit: Yes Status: Acute Assessment and plan: Acute issues. Patient's neurological exam shows no acute deficits. Continued left hemiplegia. Right craniectomy site appears well-healed. Patient denies any current issues and continues to improve his speech. Qualifiers: CVA mechanism: unspecified Qualified Code(s): I63.9 - Cerebral infarction, unspecified (2) Diabetes type 2, controlled Current Visit: Yes Status: Acute Assessment and plan: No acute issues. Patient's glucose remains well controlled with current regimen. We will continue to monitor Qualifiers: Diabetes mellitus termite treater insulin use: without halfway use Diabetes mellitus complication status: without complication Qualified Code(s): E11.9 - Type 2 diabetes mellitus without complications (3) HTN (hypertension) Current Visit: Yes Status: Chronic Assessment and plan: Vital signs are stable. We will continue with current medications Qualifiers: Hypertension type: essential hypertension Qualified Code(s): I10 - Essential (primary) hypertension - Subjective Interval history: Patient is more alert and relaxed. Patient's verbal response has been improving with more complex answers to questions. Patient also noted to be initiating conversation. Patient able to follow complex directions. Currently denies any discomforts. Patient reports patient has been doing well and has been increased on his dysphagia diet - Constitutional Vitals: Temp Pulse Resp BP Pulse Ox 97.5 F L 88 17 133/83 98 01/23/18 07:52 01/23/18 07:52 01/23/18 07:52 01/23/18 07:52 01/23/18 07:52 General appearance: Present: A&O X 2, pleasant, no acute distress. Absent: severe distress Exam: Pt continues to have difficulty with time. Conversation appropriate and pt noted to initiate some of conversation. - Head Head exam: Present: atraumatic, normocephalic Additional comments: Right craniectomy site appears to be healing well. Pt wears helmet when OOB. - Eye Eye exam: Present: PERRL, conjuntiva pink, sclera anicteric Pupils: Present: PERRL - Neck Neck exam general surgery: Present: supple, trachea midline. Absent: lymphadenopathy - Respiratory Respiratory exam: Present: CTAB. Absent: accessory muscle use, rales, rhonchi, wheezes Additional comments: Diminished breath sounds to basilar ferraro. Resp effort relaxed. - Cardiovascular Cardiovascular exam: Present: RRR, +S1, +S2. Absent: diastolic murmur, gallop, rubs, systolic murmur - GI/Abdominal GI/Abdominal exam: Present: normal bowel sounds, soft, no peritoneal signs. Absent: distended, tenderness - Extremities Exam Extremities exam: Present: warm, radial pulses palpable and symmetrical. Absent : calf tenderness, cyanotic, pedal edema - Neurological Exam Neurological exam: Absent: pronater drift, facial droop, speech deficit Additional comments: Left hemipleagia. RE continue with MS 5/5. No facial droop noted. Speech clear. Pt continues to have short answers to questions with mild word search. - Skin Skin exam: Present: dry, intact Internal Medicine: Result - Labs CBC & Chem 7: 01/22/18 06:37 01/19/18 05:25 - ABG Interpretation ABG results: PT/INR, D-dimer PT 14.2 Seconds (9.4-12.1) H 01/06/18 05:25 - VTE Documentation of Mechanical Device: Graduated compression elastic hosiery Consult Discharge Plan - Plan Referrals: Keven,Erika Stanton [employer] [Primary Care Provider] -
[2018-01-23] MEDS: Mirtazapine 15 MG TABLET PO SCH (20:00)
[2018-01-24] MEDS: hydrALAZINE 25 MG TABLET GTUBE SCH ×3 (00:30→18:44)
[2018-01-24] MEDS: Simethicone 80 MG TAB.CHEW PO SCH ×3 (09:02→18:44)
[2018-01-24] MEDS: Insulin LISPRO 300 UNITS/3 ML VIAL SQ SCH ×3 (09:02→21:59)
[2018-01-24] MEDS: Aspirin Enteric Coated 81 MG Tablet PO SCH (09:02)
--- NOTE | 2018-01-24 13:33 | Internal Med Progress Note ---
Date of Encounter: 01/24/18 Time of Encounter: 13:33 - Assessment and plan (1) Stroke determined by clinical assessment Current Visit: No Status: Acute Assessment and plan: Continues to improve. There is no significant change since yesterday. We will continue with therapies. (2) HTN (hypertension) Current Visit: Yes Status: Chronic Assessment and plan: Clinically stable. We will continue home regimen and follow. Qualifiers: Hypertension type: essential hypertension Qualified Code(s): I10 - Essential (primary) hypertension (3) Hypothyroid Current Visit: No Status: Chronic Assessment and plan: Clinically stable. Qualifiers: Hypothyroidism type: unspecified Qualified Code(s): E03.9 - Hypothyroidism , unspecified (4) Diabetes type 2, controlled Current Visit: Yes Status: Acute Assessment and plan: Clinically stable. We will continue home regimen and follow. Qualifiers: Diabetes mellitus exterminator termite insulin use: without mcfp use Diabetes mellitus complication status: without complication Qualified Code(s): E11.9 - Type 2 diabetes mellitus without complications (5) Leukocytosis, unspecified Current Visit: Yes Status: Acute Qualifiers: Leukocytosis type: unspecified Qualified Code(s): D72.829 - Elevated white blood cell count, unspecified (6) Gallbladder anomaly Current Visit: Yes Status: Acute Assessment and plan: Clinically stable. We will continue to follow. - Time Spent With Patient 25 - 35 minutes - Subjective Interval history: Patient states he is getting some movement in his left lower extremity. He is pleased about this. Shoulder pain is improved with lidocaine patches and persists, as a dull ache. Bowels are moving acceptably. Patient has no complaint of chest discomfort, dyspnea, orthopnea, palpitations, nausea or vomiting, constipation or diarrhea, other changes in bowel habits, difficulty with urination, rash or itching, or other new complaints. Review of systems is otherwise unremarkable. - Constitutional Vitals: Temp Pulse Resp BP Pulse Ox 98.0 F 84 16 115/71 93 01/24/18 12:01/24/18 12:01/24/18 12:01/24/18 12:01/24/18 07:39 General appearance: Present: A&O X 2, pleasant, no acute distress. Absent: severe distress Exam: Examinatioin: (Except as mentioned above): General: In no apparent distress. Alert and oriented 3. Nondiaphoretic. Head: Atraumatic and normocephalic. Respiratory: No use of accessory muscles. Lungs are clear throughout. Normal airflow. Cardiovascular: Regular rate and rhythm without murmur appreciated. Abdomen: Bowel sounds are normal. No hepatosplenomegaly mass or tenderness appreciated. PEG tube site is healing nicely and is totally closed. Obese and therefore difficult to palpate deeply. Extremities: No cyanosis clubbing or edema. Neurologic: Still with dense hemiparesis, left. Skin: Warm and non-diaphoretic with no new lesions noted. Internal Medicine: Result - Labs CBC & Chem 7: 01/22/18 06:37 01/19/18 05:25 - ABG Interpretation ABG results: PT/INR, D-dimer PT 14.2 Seconds (9.4-12.1) H 01/06/18 05:25 - VTE Documentation of Mechanical Device: Graduated compression elastic hosiery Consult Discharge Plan - Plan Referrals: Erika Baca CNP [Primary Care Provider] -
[2018-01-24] MEDS: Bisacodyl 10 MG RECTAL SUPPOSITORY RC SCH (18:45)
[2018-01-24] MEDS: Acetaminophen 325 MG TABLET PO PRN (22:00)
[2018-01-24] MEDS: Mirtazapine 15 MG TABLET PO SCH (22:00)
[2018-01-25] MEDS: hydrALAZINE 25 MG TABLET GTUBE SCH ×4 (01:54→22:55)
[2018-01-25] MEDS: Insulin LISPRO 300 UNITS/3 ML VIAL SQ SCH ×4 (10:02→22:55)
[2018-01-25] MEDS: Aspirin Enteric Coated 81 MG Tablet PO SCH (10:07)
[2018-01-25] MEDS: Simethicone 80 MG TAB.CHEW PO SCH ×3 (10:07→22:54)
--- NOTE | 2018-01-25 14:06 | Internal Med Progress Note ---
Date of Encounter: 01/25/18 Time of Encounter: 14:06 - Assessment and plan (1) Stroke determined by clinical assessment Current Visit: No Status: Acute Assessment and plan: Continued slow but steady improvement. Seems to be responding well to current regimen. We will continue with therapies. (2) HTN (hypertension) Current Visit: Yes Status: Chronic Assessment and plan: Clinically stable. We will continue home regimen and follow. Qualifiers: Hypertension type: essential hypertension Qualified Code(s): I10 - Essential (primary) hypertension (3) Hypothyroid Current Visit: No Status: Chronic Assessment and plan: Clinically stable. Qualifiers: Hypothyroidism type: unspecified Qualified Code(s): E03.9 - Hypothyroidism , unspecified (4) Diabetes type 2, controlled Current Visit: Yes Status: Acute Assessment and plan: Clinically stable. We will continue home regimen and follow. Qualifiers: Diabetes mellitus retirement insulin use: without retirement use Diabetes mellitus complication status: without complication Qualified Code(s): E11.9 - Type 2 diabetes mellitus without complications (5) Leukocytosis, unspecified Current Visit: Yes Status: Acute Assessment and plan: To have a repeat, tomorrow. I spoke with him at length about his gallbladder and he has no symptoms which might be related. He remains afebrile. His appetite is good. Etiology is still unknown. 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 We will continue to follow. - Time Spent With Patient 25 - 35 minutes - Subjective Interval history: Patient is doing well and is without complaint. He asks if he needs to have a dressing over the scab at his PEG tube site. He denies any pain or drainage at that site and no problems, otherwise. He feels like he is slightly constipated but is having a bowel movement with each day, after dinner when he receives his suppository. He has no other acute issues. Patient has no complaint of chest discomfort, dyspnea, orthopnea, palpitations, nausea or vomiting, constipation or diarrhea, other changes in bowel habits, difficulty with urination, rash or itching, or other new complaints. Review of systems is otherwise unremarkable. - Constitutional Vitals: Temp Pulse Resp BP Pulse Ox 98.3 F 64 16 130/70 95 03/18/18 07:24 01/25/18 07:24 01/25/18 07:24 01/25/18 07:24 01/25/18 07:24 General appearance: Present: A&O X 2, pleasant, no acute distress. Absent: severe distress Exam: Examinatioin: (Except as mentioned above): General: In no apparent distress. Alert and oriented 3. Nondiaphoretic. Head: Atraumatic and normocephalic. Respiratory: No use of accessory muscles. Lungs are clear throughout. Normal airflow. Cardiovascular: Regular rate and rhythm without murmur appreciated. Abdomen: Bowel sounds are normal. No hepatosplenomegaly mass or tenderness appreciated. Obese and therefore difficult to palpate deeply. The peg tube removal site is scarred and is without drainage or surrounding erythema, nontender, with no sign of herniation. Extremities: No cyanosis clubbing or edema. Neurologic: Still with dense left hemiparesis. No clinical change. Skin: Warm and non-diaphoretic with no new lesions noted. Internal Medicine: Result - Labs CBC & Chem 7: 01/22/18 06:37 01/19/18 05:25 - ABG Interpretation ABG results: PT/INR, D-dimer PT 14.2 Seconds (9.4-12.1) H 01/06/18 05:25 - VTE Documentation of Mechanical Device: Graduated compression elastic hosiery Consult Discharge Plan - Plan Referrals: Erika Baca CNP [Primary Care Provider] -
[2018-01-25] MEDS: Bisacodyl 10 MG RECTAL SUPPOSITORY RC SCH (18:48)
[2018-01-25] MEDS: Acetaminophen 325 MG TABLET PO PRN (22:55)
[2018-01-25] MEDS: Mirtazapine 15 MG TABLET PO SCH (22:55)
[2018-01-26 07:12] LABS: Basophils # 0.1 K/mcL (0.0-0.2); Basophils % 1.1 %; Eosinophils # 0.7 K/mcL (0.0-0.6); Eosinophils % 6.8 %; Hematocrit 31.8 % (37.5-50.1); Hemoglobin 10.4 g/dL (12.9-16.9); Immature Granulocytes % 0.4 % (0-4); Lymphocytes # 1.9 K/mcL (0.6-4.6); Lymphocytes % 18.4 %; Mean Corpuscular HGB Conc 32.7 g/dL (31.6-35.5); Mean Corpuscular Hemoglobin 29.8 pg (28.0-33.3); Mean Corpuscular Volume 91.1 fL (83.0-100.0); Mean Platelet Volume 10.3 fL (9.4-12.4); Monocytes # 0.8 K/mcL (0.0-1.3); Monocytes % 7.9 %; Neutrophils # 6.7 K/mcL (1.6-8.9); Platelet Count 336 K/mcL (140-400); Red Blood Count 3.49 M/mcL (4.19-5.50); Red Cell Distribution Width 15.6 % (11.5-14.5); Segmented Neutrophils % 65.4 %
[2018-01-26 07:24] LABS: BUN/Creatinine Ratio 11 (6-26); Blood Urea Nitrogen 11 mg/dL (8-23); Calcium 9.5 mg/dL (8.6-10.3); Carbon Dioxide 21 mEq/L (23-29); Chloride 104 mEq/L (98-107); Glucose 101 mg/dL (70-105); Osmolality,Calculated 278 (280-300); Potassium 4.1 mEq/L (3.5-5.1); Sodium 134 mEq/L (136-145); eGFR For African Americans > 60 (> 60); eGFR For Non-African Americans > 60 (> 60)
[2018-01-26] MEDS: Simethicone 80 MG TAB.CHEW PO SCH ×3 (09:54→20:20)
[2018-01-26] MEDS: Aspirin Enteric Coated 81 MG Tablet PO SCH (09:54)
[2018-01-26] MEDS: hydrALAZINE 25 MG TABLET GTUBE SCH ×3 (09:54→23:48)
--- NOTE | 2018-01-26 13:40 | Internal Med Progress Note ---
Date of Encounter: 01/26/18 Time of Encounter: 13:38 - Assessment and plan (1) CVA (cerebral vascular accident) Current Visit: Yes Status: Acute Assessment and plan: No new neurological deficits. Left-sided hemiplegia. Continues to participate with PT\OT\ST. Fatigues easily. Will continue to monitor Qualifiers: CVA mechanism: unspecified Qualified Code(s): I63.9 - Cerebral infarction, unspecified (2) Diabetes type 2, controlled Current Visit: Yes Status: Acute Assessment and plan: Controlled with current medications. Continue to monitor fingerstick blood sugars and will adjust medications as necessary. Qualifiers: Diabetes mellitus retirement insulin use: without long term care phlebotomist use Diabetes mellitus complication status: without complication Qualified Code(s): E11.9 - Type 2 diabetes mellitus without complications (3) HTN (hypertension) Current Visit: Yes Status: Chronic Assessment and plan: Stable with current medications. Monitor blood pressure Qualifiers: Hypertension type: essential hypertension Qualified Code(s): I10 - Essential (primary) hypertension - Subjective Interval history: Patient currently resting in bed. participated well with therapy this morning working on standing frame with max assist. Appetite good, maintaining hydration. No complaints with bowel and bladder. Denies any other complaints at this time. Denies pain, fever, chills, nausea, vomiting, diarrhea , shortness of breath or chest pain. bowel training started. therapy reports L hip pain with weight bearing. states he continues to twist his hip when getting up. - Constitutional Vitals: Temp Pulse Resp BP Pulse Ox 97.9 F 64 16 116/76 96 01/26/18 11:08 01/26/18 11:08 01/26/18 11:08 01/26/18 11:08 01/26/18 11:08 General appearance: Present: A&O X 2, pleasant, no acute distress. Absent: severe distress - Head Head exam: Present: atraumatic, normocephalic - Eye Eye exam: Present: PERRL, conjuntiva pink, sclera anicteric Pupils: Present: PERRL - Neck Neck exam general surgery: Present: supple, trachea midline. Absent: lymphadenopathy - Respiratory Respiratory exam: Present: CTAB. Absent: accessory muscle use, rales, rhonchi, wheezes - Cardiovascular Cardiovascular exam: Present: RRR, +S1, +S2. Absent: diastolic murmur, gallop, rubs, systolic murmur - GI/Abdominal GI/Abdominal exam: Present: normal bowel sounds, soft, no peritoneal signs. Absent: distended, tenderness - Extremities Exam Extremities exam: Present: warm, radial pulses palpable and symmetrical. Absent : calf tenderness, cyanotic, pedal edema Additional comments: left sided hemiplegia - Neurological Exam Neurological exam: Present: CN II-XII intact, oriented X3, no focal deficits. Absent: pronater drift, facial droop, speech deficit - Skin Skin exam: Present: dry, intact Internal Medicine: Result - Labs CBC & Chem 7: 01/26/18 06:40 01/26/18 06:40 Labs: Short CBC 01/26/18 Range/Units 06:40 WBC 10.2 (4.3-11.1) K/mcL Hgb 10.4 L (12.9-16.9) g/dL Hct 31.8 L (37.5-50.1) % Plt Count 336 (140-400) K/mcL Neutrophils # 6.7 (1.6-8.9) K/mcL BMP 01/26/18 06:40 Sodium 134 L Potassium 4.1 Chloride 104 Carbon Dioxide 21 L BUN 11 Creatinine 0.96 Glucose 101 Calcium 9.5 - ABG Interpretation ABG results: PT/INR, D-dimer PT 14.2 Seconds (9.4-12.1) H 01/06/18 05:25 - VTE Documentation of Mechanical Device: Graduated compression elastic hosiery Consult Discharge Plan - Plan Referrals: Erika Baca CNP [Primary Care Provider] -
[2018-01-26] MEDS: Acetaminophen 325 MG TABLET PO PRN (20:20)
[2018-01-26] MEDS: Mirtazapine 15 MG TABLET PO SCH (20:20)
[2018-01-26] MEDS: Bisacodyl 10 MG RECTAL SUPPOSITORY RC SCH (20:21)
--- NOTE | 2018-01-27 08:38 | Internal Med Progress Note ---
Date of Encounter: 01/27/18 Time of Encounter: 08:36 - Assessment and plan (1) Stroke determined by clinical assessment Current Visit: No Status: Acute Assessment and plan: He will continue with therapies. He is making slow progress. (2) HTN (hypertension) Current Visit: Yes Status: Chronic Assessment and plan: Clinically stable. We will continue home regimen and follow. Qualifiers: Hypertension type: essential hypertension Qualified Code(s): I10 - Essential (primary) hypertension (3) Hypothyroid Current Visit: No Status: Chronic Assessment and plan: Clinically stable. Qualifiers: Hypothyroidism type: unspecified Qualified Code(s): E03.9 - Hypothyroidism , unspecified (4) Diabetes type 2, controlled Current Visit: Yes Status: Acute Assessment and plan: Clinically stable. We will continue home regimen and follow. Qualifiers: Diabetes mellitus remote computer terminal operator insulin use: without remote computer terminal operator use Diabetes mellitus complication status: without complication Qualified Code(s): E11.9 - Type 2 diabetes mellitus without complications (5) Leukocytosis, unspecified Current Visit: Yes Status: Acute Assessment and plan: Resolved. 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 We will continue to follow. (7) Monilial intertrigo Current Visit: Yes Status: Acute Assessment and plan: We will begin nystatin powder 3 times a day. - Subjective Interval history: Patient is doing well without complaint. He has no issues. He admits to left shoulder pain but this is improved. He admits to some burning in his groin because of his rash. Nursing had noted increased redness at the intertriginous areas. Patient has no complaint of chest discomfort, dyspnea, orthopnea, palpitations, nausea or vomiting, constipation or diarrhea, other changes in bowel habits, difficulty with urination, rash or itching, or other new complaints. Review of systems is otherwise unremarkable. - Constitutional Vitals: Temp Pulse Resp BP Pulse Ox 98.0 F 62 16 129/76 95 01/27/18 07:32 01/27/18 07:32 01/27/18 07:32 01/27/18 07:32 01/27/18 07:32 General appearance: Present: A&O X 2, pleasant, no acute distress. Absent: severe distress Exam: Examinatioin: (Except as mentioned above): General: In no apparent distress. Alert and oriented 3. Nondiaphoretic. Head: Atraumatic and normocephalic. Respiratory: No use of accessory muscles. Lungs are clear throughout. Normal airflow. Cardiovascular: Regular rate and rhythm without murmur appreciated. Abdomen: Bowel sounds are normal. No hepatosplenomegaly mass or tenderness appreciated. Obese and therefore difficult to palpate deeply. Extremities: No cyanosis clubbing or edema. Still with dense left hemiparesis. Skin: Inguinal. Medial areas with excoriated, erythematous skin, consistent with fungal intertrigo. Internal Medicine: Result - Labs CBC & Chem 7: 01/26/18 06:40 01/26/18 06:40 - ABG Interpretation ABG results: PT/INR, D-dimer PT 14.2 Seconds (9.4-12.1) H 01/06/18 05:25 - VTE Documentation of Mechanical Device: Graduated compression elastic hosiery Consult Discharge Plan - Plan Referrals: Erika Baca PRINT PRODUCTION ASSOCIATE [Primary Care Provider] -
[2018-01-27] MEDS: hydrALAZINE 25 MG TABLET GTUBE SCH ×2 (09:46→16:25)
[2018-01-27] MEDS: Simethicone 80 MG TAB.CHEW PO SCH ×2 (09:46→16:25)
[2018-01-27] MEDS: Nystatin POWDER 30 GM BOTTLE TP SCH (09:47)
[2018-01-27] MEDS: Aspirin Enteric Coated 81 MG Tablet PO SCH (09:47)
[2018-01-27] MEDS: Bisacodyl 10 MG RECTAL SUPPOSITORY RC SCH (18:33)
[2018-01-28] MEDS: Acetaminophen 325 MG TABLET PO PRN ×2 (00:35→20:36)
[2018-01-28] MEDS: Mirtazapine 15 MG TABLET PO SCH ×2 (00:35→20:38)
[2018-01-28] MEDS: Nystatin POWDER 30 GM BOTTLE TP SCH ×3 (00:35→21:00)
[2018-01-28] MEDS: Simethicone 80 MG TAB.CHEW PO SCH ×4 (00:35→20:38)
[2018-01-28] MEDS: hydrALAZINE 25 MG TABLET GTUBE SCH ×3 (00:35→18:51)
[2018-01-28] MEDS: Aspirin Enteric Coated 81 MG Tablet PO SCH (09:03)
[2018-01-28] MEDS: Bisacodyl 10 MG RECTAL SUPPOSITORY RC SCH (18:51)
[2018-01-29] MEDS: hydrALAZINE 25 MG TABLET GTUBE SCH ×3 (00:06→16:05)
[2018-01-29] MEDS: Aspirin Enteric Coated 81 MG Tablet PO SCH (09:19)
[2018-01-29] MEDS: Nystatin POWDER 30 GM BOTTLE TP SCH ×2 (09:19→22:05)
[2018-01-29] MEDS: Simethicone 80 MG TAB.CHEW PO SCH ×3 (09:19→22:05)
--- NOTE | 2018-01-29 11:51 | Internal Med Progress Note ---
Date of Encounter: 01/29/18 Time of Encounter: 11:49 - Assessment and plan (1) CVA (cerebral vascular accident) Current Visit: Yes Status: Acute Assessment and plan: No known acute neurological deficits noted since last exam. Continued left hemiplegia. Patient with complaints of left shoulder and left hip pain during repositioning. No acute issues noted on left shoulder, other than complaints of tenderness during range of motion. Right craniectomy site appears well- healed. We will continue with use of helmet when mobilizing. Patient has been progressing well with physical therapy and was noted to be improving somewhat on his speech communication. We will continue with current plan of care. Qualifiers: CVA mechanism: unspecified Qualified Code(s): I63.9 - Cerebral infarction, unspecified (2) Diabetes type 2, controlled Current Visit: Yes Status: Chronic Assessment and plan: No acute issues. Patient's glucose well controlled with current medication regimen. Qualifiers: Diabetes mellitus termite technician insulin use: without termite technician use Diabetes mellitus complication status: without complication Qualified Code(s): E11.9 - Type 2 diabetes mellitus without complications (3) HTN (hypertension) Current Visit: Yes Status: Chronic Assessment and plan: Vital signs stable. We will continue with current medications. Qualifiers: Hypertension type: essential hypertension Qualified Code(s): I10 - Essential (primary) hypertension - Subjective Interval history: Patient currently with complaints of slight to moderate pain to left shoulder and left hip during repositioning. Patient with left hemiplegia. Patient denies any other discomforts or issues. - Constitutional Vitals: Temp Pulse Resp BP Pulse Ox 98.1 F 63 16 133/79 94 01/29/18 07:27 01/29/18 07:27 01/29/18 07:27 01/29/18 11:43 01/29/18 07:27 General appearance: Present: A&O X 3, pleasant, no acute distress. Absent: severe distress Exam: Patient at times is slow to answer questions, but has been able to answer complex questions appropriately - Head Head exam: Present: atraumatic, normocephalic - Eye Eye exam: Present: PERRL, conjuntiva pink, sclera anicteric Pupils: Present: PERRL - Neck Neck exam general surgery: Present: supple, trachea midline. Absent: lymphadenopathy - Respiratory Respiratory exam: Present: CTAB. Absent: accessory muscle use, rales, rhonchi, wheezes - Cardiovascular Cardiovascular exam: Present: RRR, +S1, +S2. Absent: diastolic murmur, gallop, rubs, systolic murmur - GI/Abdominal GI/Abdominal exam: Present: normal bowel sounds, soft, no peritoneal signs. Absent: distended, tenderness - Extremities Exam Extremities exam: Present: warm, radial pulses palpable and symmetrical. Absent : calf tenderness, cyanotic, pedal edema Additional comments: Left shoulder shows no swelling or signs of injury. No tenderness on palpation , but slight discomfort during passive range of motion. Left hip shows no signs of injury or swelling. No tenderness on palpation or range of motion - Neurological Exam Neurological exam: Present: CN II-XII intact, oriented X3. Absent: pronater drift, facial droop, speech deficit Additional comments: No acute neurological deficits noted during exam. Patient continues with left hemiplegia. Right craniectomy surgical incision appears well-healed. - Skin Skin exam: Present: dry, intact Internal Medicine: Result - Labs CBC & Chem 7: 01/26/18 06:40 01/26/18 06:40 - ABG Interpretation ABG results: PT/INR, D-dimer PT 14.2 Seconds (9.4-12.1) H 01/06/18 05:25 - VTE Documentation of Mechanical Device: Graduated compression elastic hosiery Consult Discharge Plan - Plan Referrals: Erika Baca CNP [Primary Care Provider] -
--- NOTE | 2018-01-29 14:29 | Internal Med Progress Note ---
Date of Encounter: 01/29/18 Time of Encounter: 16:30 - Assessment and plan (1) Stroke determined by clinical assessment Current Visit: No Status: Acute Assessment and plan: He will continue with therapies. He continues to make progress. (2) HTN (hypertension) Current Visit: Yes Status: Chronic Assessment and plan: Clinically stable. We will continue home regimen and follow. Qualifiers: Hypertension type: essential hypertension Qualified Code(s): I10 - Essential (primary) hypertension (3) Hypothyroid Current Visit: No Status: Chronic Assessment and plan: Clinically stable. Qualifiers: Hypothyroidism type: unspecified Qualified Code(s): E03.9 - Hypothyroidism , unspecified (4) Diabetes type 2, controlled Current Visit: Yes Status: Chronic Assessment and plan: Clinically stable. We will continue home regimen and follow. Qualifiers: Diabetes mellitus correction insulin use: without terminologist use Diabetes mellitus complication status: without complication Qualified Code(s): E11.9 - Type 2 diabetes mellitus without complications (5) Gallbladder anomaly Current Visit: Yes Status: Acute Assessment and plan: Clinically stable. We will continue to follow. (6) Monilial intertrigo Current Visit: Yes Status: Acute Assessment and plan: We will continue on nystatin. (7) Shoulder pain, left Current Visit: Yes Status: Acute Assessment and plan: We will obtain imaging of his left shoulder and left hip, after review of previous images. Qualifiers: Qualified Code(s): M25.512 - Pain in left shoulder - Subjective Interval history: Patient continues to have left shoulder pain and left hip pain. He questions whether or not he might have heard something when he fell. He denies any falls or injury, while here. He is eating well and is glad that his diet will be advanced, even further, by speech therapy. He has no other intercurrent complaints. He denies headache. Patient has no complaint of chest discomfort, dyspnea, orthopnea, palpitations, nausea or vomiting, constipation or diarrhea, other changes in bowel habits, difficulty with urination, rash or itching, or other new complaints. Review of systems is otherwise unremarkable. - Constitutional Vitals: Temp Pulse Resp BP Pulse Ox 98.1 F 63 16 133/79 94 01/29/18 07:27 01/29/18 07:27 01/29/18 07:27 01/29/18 11:43 01/29/18 07:27 General appearance: Present: A&O X 3, pleasant, no acute distress. Absent: severe distress Exam: Examinatioin: (Except as mentioned above): General: In no apparent distress. Alert and oriented 3. Nondiaphoretic. Head: Atraumatic and normocephalic. Respiratory: No use of accessory muscles. Lungs are clear throughout. Normal airflow. Cardiovascular: Regular rate and rhythm without murmur appreciated. Abdomen: Bowel sounds are normal. No hepatosplenomegaly mass or tenderness appreciated. Obese and therefore difficult to palpate deeply. Extremities: No cyanosis clubbing or edema. Minimal pain with range of motion at left shoulder. Skin: Warm and non-diaphoretic with no new lesions noted. Internal Medicine: Result - Labs CBC & Chem 7: 01/26/18 06:40 01/26/18 06:40 - ABG Interpretation ABG results: PT/INR, D-dimer PT 14.2 Seconds (9.4-12.1) H 01/06/18 05:25 - VTE Documentation of Mechanical Device: Graduated compression elastic hosiery Consult Discharge Plan - Plan Referrals: Erika Baca POLISHER BRASS [Primary Care Provider] -
[2018-01-29] MEDS: Bisacodyl 10 MG RECTAL SUPPOSITORY RC SCH (18:40)
[2018-01-29] MEDS: Mirtazapine 15 MG TABLET PO SCH (22:05)
[2018-01-30] MEDS: hydrALAZINE 25 MG TABLET GTUBE SCH ×4 (00:29→23:25)
[2018-01-30 09:34] LABS: Alanine Aminotransferase 43 Units/L (7-52); Albumin 3.3 g/dL (3.5-5.7); Albumin/Globulin Ratio 0.8 (1.1-2.2); Alkaline Phosphatase 95 Units/L (34-104); Aspartate Amino Transferase 23 Units/L (13-39); BUN/Creatinine Ratio 12 (6-26); Bilirubin,Total 0.5 mg/dL (0.3-1.0); Blood Urea Nitrogen 12 mg/dL (8-23); Calcium 9.7 mg/dL (8.6-10.3); Carbon Dioxide 27 mEq/L (23-29); Chloride 104 mEq/L (98-107); Globulin 3.9 g/dL (2.4-3.5); Glucose 116 mg/dL (70-105); Osmolality,Calculated 287 (280-300); Potassium 4.1 mEq/L (3.5-5.1); Sodium 138 mEq/L (136-145); Total Protein 7.2 g/dL (6.4-8.9); eGFR For African Americans > 60 (> 60); eGFR For Non-African Americans > 60 (> 60)
[2018-01-30] MEDS: Simethicone 80 MG TAB.CHEW PO SCH ×3 (09:48→23:25)
[2018-01-30] MEDS: Aspirin Enteric Coated 81 MG Tablet PO SCH (09:48)
[2018-01-30] MEDS: Acetaminophen 325 MG TABLET PO PRN ×2 (09:48→23:25)
--- NOTE | 2018-01-30 11:12 | Internal Med Progress Note ---
Date of Encounter: 01/30/18 Time of Encounter: 11:10 - Assessment and plan (1) CVA (cerebral vascular accident) Current Visit: Yes Status: Acute Assessment and plan: No known acute neurological deficits noted since last exam. Continued left hemiplegia. Patient with complaints of left shoulder and left hip pain during repositioning. No acute issues noted on left shoulder, other than complaints of tenderness during range of motion. X-ray of left shoulder showed spurring of rotator cuff and no acute injury or deformity. Right craniectomy site appears well-healed. We will continue with use of helmet when mobilizing. Patient has been progressing well with physical therapy and was noted to be improving somewhat on his speech communication. We will continue with current plan of care. Qualifiers: CVA mechanism: unspecified Qualified Code(s): I63.9 - Cerebral infarction, unspecified (2) Diabetes type 2, controlled Current Visit: Yes Status: Chronic Assessment and plan: No acute issues. Patient's glucose well controlled with current medication regimen. 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 We will continue with current medications. Qualifiers: Hypertension type: essential hypertension Qualified Code(s): I10 - Essential (primary) hypertension - Time Spent With Patient less than 15 minutes - Subjective Interval history: Patient continues with complaints of slight to moderate pain to left shoulder and left hip during repositioning. X-ray of left shoulder show spurring at the rotator cuff insertion, but no acute injury. X-ray of the hip showed no acute process. Patient with left hemiplegia. Patient denies any other discomforts or issues. - Constitutional Vitals: Temp Pulse Resp BP Pulse Ox 98.3 F 65 16 134/71 95 01/30/18 07:11 01/30/18 07:11 01/30/18 07:11 01/30/18 07:11 01/30/18 07:11 General appearance: Present: A&O X 3, pleasant, no acute distress. Absent: severe distress - Head Head exam: Present: atraumatic, normocephalic - Eye Eye exam: Present: PERRL, conjuntiva pink, sclera anicteric Pupils: Present: PERRL - Neck Neck exam general surgery: Present: supple, trachea midline. Absent: lymphadenopathy - Respiratory Respiratory exam: Present: CTAB. Absent: accessory muscle use, rales, rhonchi, wheezes - Cardiovascular Cardiovascular exam: Present: RRR, +S1, +S2. Absent: diastolic murmur, gallop, rubs, systolic murmur - GI/Abdominal GI/Abdominal exam: Present: normal bowel sounds, soft, no peritoneal signs. Absent: distended, tenderness - Extremities Exam Extremities exam: Present: warm, radial pulses palpable and symmetrical. Absent : calf tenderness, cyanotic, pedal edema Additional comments: Complaints of slight tenderness during range of motion of left shoulder. No obvious injury, edema or deformity noted. - Neurological Exam Neurological exam: Present: oriented X3. Absent: facial droop, speech deficit Additional comments: Left hemiplegia. Right craniectomy surgical site appears well-healed. His continues with some word searching when attempting to answer questions. - Skin Skin exam: Present: dry, intact Internal Medicine: Result - Labs CBC & Chem 7: 01/26/18 06:40 01/30/18 06:53 Labs: BMP 01/30/18 06:53 Sodium 138 Potassium 4.1 Chloride 104 Carbon Dioxide 27 BUN 12 Creatinine 0.98 Glucose 116 H Calcium 9.7 Liver Function 01/30/18 Range/Units 06:53 Total Bilirubin 0.5 (0.3-1.0) mg/dL AST 23 (13-39) Units/L ALT 43 (7-52) Units/L Alkaline Phosphatase 95 (34-104) Units/L Albumin 3.3 L (3.5-5.7) g/dL - ABG Interpretation ABG results: PT/INR, D-dimer PT 14.2 Seconds (9.4-12.1) H 01/06/18 05:25 - Impressions Impressions Shoulder X-Ray 01/29/18 14:36 IMPRESSION: Degenerative change left hip. No acute osseous abnormality Degenerative change left shoulder. No acute osseous abnormality D/ / Jorge Olmedo MD / Jorge Olmedo MD Interpreting Provider: Jorge Olmedo MD Hip X-Ray 01/29/18 14:37 IMPRESSION: Degenerative change left hip. No acute osseous abnormality Degenerative change left shoulder. No acute osseous abnormality D/ / Jorge Olmedo MD / Joreg Olmedo MD Interpreting Provider: Jorge Olmedo MD - VTE Documentation of Mechanical Device: Graduated compression elastic hosiery Consult Discharge Plan - Plan Referrals: Erika Baca HEAD OF ENGLISH [Primary Care Provider] -
[2018-01-30] MEDS: Nystatin POWDER 30 GM BOTTLE TP SCH ×2 (11:44→23:25)
[2018-01-30] MEDS: Bisacodyl 10 MG RECTAL SUPPOSITORY RC SCH (17:04)
[2018-01-30] MEDS: Fluconazole 100 MG TABLET PO SCH (17:05)
[2018-01-30] MEDS: Mirtazapine 15 MG TABLET PO SCH (23:25)
--- NOTE | 2018-01-31 10:01 | Internal Med Progress Note ---
Date of Encounter: 01/31/18 Time of Encounter: 09:59 - Assessment and plan (1) CVA (cerebral vascular accident) Current Visit: Yes Status: Acute Assessment and plan: stable no new issues Qualifiers: CVA mechanism: unspecified Qualified Code(s): I63.9 - Cerebral infarction, unspecified (2) HTN (hypertension) Current Visit: Yes Status: Chronic Assessment and plan: stable Qualifiers: Hypertension type: essential hypertension Qualified Code(s): I10 - Essential (primary) hypertension (3) Hypothyroid Current Visit: No Status: Chronic Qualifiers: Hypothyroidism type: unspecified Qualified Code(s): E03.9 - Hypothyroidism , unspecified (4) Diabetes type 2, controlled Current Visit: Yes Status: Chronic Assessment and plan: stable 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: 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 Diabetes mellitus complication status: without complication Qualified Code(s): E11.9 - Type 2 diabetes mellitus without complications (5) Leukocytosis, unspecified Current Visit: Yes Status: Acute Qualifiers: Leukocytosis type: unspecified Qualified Code(s): D72.829 - Elevated white blood cell count, unspecified (6) Hyponatremia Current Visit: Yes Status: Acute - Subjective Interval history: No new complains continues to be involved in rehab and feels well - Constitutional Vitals: Temp Pulse Resp BP Pulse Ox 97.9 F 70 18 146/77 94 01/31/18 07:14 01/31/18 07:14 01/31/18 07:14 01/31/18 07:14 01/31/18 07:14 General appearance: Present: A&O X 3, pleasant, no acute distress. Absent: severe distress - Head Head exam: Present: atraumatic - Eye Eye exam: Present: EOMI, PERRL. Absent: conjunctival injection, scleral icterus - Neck Neck exam general surgery: Absent: tenderness, nuchal rigidity - Respiratory Respiratory exam: Present: CTAB. Absent: chest wall tenderness, respiratory distress, rhonchi, stridor, wheezes, tachypnea - Cardiovascular Cardiovascular exam: Present: RRR, +S1, +S2. Absent: irregular rhythm - GI/Abdominal GI/Abdominal exam: Present: normal bowel sounds, soft. Absent: distended, guarding, rebound, rigid - Extremities Exam Extremities exam: Absent: pedal edema, tenderness Internal Medicine: Result - Labs CBC & Chem 7: 01/26/18 06:40 01/30/18 06:53 - ABG Interpretation ABG results: PT/INR, D-dimer PT 14.2 Seconds (9.4-12.1) H 01/06/18 05:25 - VTE Documentation of Mechanical Device: Graduated compression elastic hosiery Consult Discharge Plan - Plan Referrals: Keven,Erika Stanton TREE SPECIALIST [Primary Care Provider] -
[2018-01-31] MEDS: Acetaminophen 325 MG TABLET PO PRN (10:17)
[2018-01-31] MEDS: Aspirin Enteric Coated 81 MG Tablet PO SCH (10:18)
[2018-01-31] MEDS: hydrALAZINE 25 MG TABLET GTUBE SCH ×2 (10:18→17:16)
[2018-01-31] MEDS: Nystatin POWDER 30 GM BOTTLE TP SCH ×2 (10:18→22:43)
[2018-01-31] MEDS: Fluconazole 100 MG TABLET PO SCH (10:18)
[2018-01-31] MEDS: Simethicone 80 MG TAB.CHEW PO SCH ×3 (10:18→22:42)
[2018-01-31] MEDS: Bisacodyl 10 MG RECTAL SUPPOSITORY RC SCH (19:33)
[2018-01-31] MEDS: Mirtazapine 15 MG TABLET PO SCH (22:42)
[2018-02-01] MEDS: hydrALAZINE 25 MG TABLET GTUBE SCH ×3 (00:33→17:37)
--- NOTE | 2018-02-01 09:33 | Internal Med Progress Note ---
Date of Encounter: 02/01/18 Time of Encounter: 09:30 - Assessment and plan (1) CVA (cerebral vascular accident) Current Visit: Yes Status: Acute Assessment and plan: stable doing very well and is s table Qualifiers: CVA mechanism: unspecified Qualified Code(s): I63.9 - Cerebral infarction, unspecified (2) HTN (hypertension) Current Visit: Yes Status: Chronic Assessment and plan: stable no new changes Qualifiers: Hypertension type: essential hypertension Qualified Code(s): I10 - Essential (primary) hypertension (3) Hypothyroid Current Visit: No Status: Chronic Assessment and plan: stable continue present treatment Qualifiers: Hypothyroidism type: unspecified Qualified Code(s): E03.9 - Hypothyroidism , unspecified (4) Diabetes type 2, controlled Current Visit: Yes Status: Chronic Assessment and plan: stable no new change Qualifiers: 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 Diabetes mellitus complication status: without complication Qualified Code(s): E11.9 - Type 2 diabetes mellitus without complications (5) Leukocytosis, unspecified Current Visit: Yes Status: Resolved Assessment and plan: resolved Qualifiers: Leukocytosis type: unspecified Qualified Code(s): D72.829 - Elevated white blood cell count, unspecified (6) Hyponatremia Current Visit: Yes Status: Resolved Assessment and plan: resolved - Subjective Interval history: No new complains continues to be involved in rehab and feels well today feels that his neck may be hurting as he has been laying on one side - Constitutional Vitals: Temp Pulse Resp BP Pulse Ox 98.3 F 79 18 123/86 98 02/01/18 07:53 02/01/18 07:53 02/01/18 07:53 02/01/18 07:53 02/01/18 07:53 General appearance: Present: A&O X 3, pleasant, no acute distress. Absent: severe distress - Head Additional comments: surgery scalp with deformity - Eye Eye exam: Present: EOMI, PERRL, scleral icterus. Absent: conjuntiva pink - Neck Neck exam general surgery: Present: tenderness, supple. Absent: nuchal rigidity Additional comments: mild tenderness on left side neck muscles - Respiratory Respiratory exam: Present: CTAB. Absent: rales, respiratory distress, rhonchi, stridor, wheezes, tachypnea - Cardiovascular Cardiovascular exam: Present: RRR, +S1, +S2. Absent: irregular rhythm, JVD, systolic murmur - GI/Abdominal GI/Abdominal exam: Present: normal bowel sounds, soft. Absent: firm, guarding, rebound, rigid - Extremities Exam Extremities exam: Absent: pedal edema, tenderness - Neurological Exam Neurological exam: Present: alert. Absent: facial droop, speech deficit Additional comments: focal weakness as before no changes Internal Medicine: Result - Labs CBC & Chem 7: 01/26/18 06:40 01/30/18 06:53 - ABG Interpretation ABG results: PT/INR, D-dimer PT 14.2 Seconds (9.4-12.1) H 01/06/18 05:25 - VTE Documentation of Mechanical Device: Graduated compression elastic hosiery Consult Discharge Plan - Plan Referrals: Erika Baca FILL[employer] RO[employer] ATTENDANT [Primary Care Provider] -
[2018-02-01] MEDS: Simethicone 80 MG TAB.CHEW PO SCH ×3 (10:20→20:31)
[2018-02-01] MEDS: Aspirin Enteric Coated 81 MG Tablet PO SCH (10:20)
[2018-02-01] MEDS: Nystatin POWDER 30 GM BOTTLE TP SCH ×2 (10:21→20:31)
[2018-02-01] MEDS: Fluconazole 100 MG TABLET PO SCH (10:22)
[2018-02-01] MEDS: Bisacodyl 10 MG RECTAL SUPPOSITORY RC SCH (17:37)
[2018-02-01] MEDS: Mirtazapine 15 MG TABLET PO SCH (20:30)
[2018-02-02] MEDS: hydrALAZINE 25 MG TABLET GTUBE SCH ×4 (00:34→22:37)
[2018-02-02 05:55] LABS: Basophils # 0.1 K/mcL (0.0-0.2); Basophils % 0.9 %; Eosinophils # 0.8 K/mcL (0.0-0.6); Eosinophils % 6.6 %; Hematocrit 33.1 % (37.5-50.1); Hemoglobin 10.7 g/dL (12.9-16.9); Immature Granulocytes % 0.3 % (0-4); Lymphocytes # 2.2 K/mcL (0.6-4.6); Lymphocytes % 18.6 %; Mean Corpuscular HGB Conc 32.3 g/dL (31.6-35.5); Mean Corpuscular Hemoglobin 29.5 pg (28.0-33.3); Mean Corpuscular Volume 91.2 fL (83.0-100.0); Mean Platelet Volume 10.2 fL (9.4-12.4); Monocytes # 1.1 K/mcL (0.0-1.3); Monocytes % 9.7 %; Neutrophils # 7.5 K/mcL (1.6-8.9); Platelet Count 278 K/mcL (140-400); Red Blood Count 3.63 M/mcL (4.19-5.50); Red Cell Distribution Width 15.5 % (11.5-14.5); Segmented Neutrophils % 63.9 %
[2018-02-02 06:17] LABS: BUN/Creatinine Ratio 15 (6-26); Blood Urea Nitrogen 15 mg/dL (8-23); Calcium 9.7 mg/dL (8.6-10.3); Carbon Dioxide 24 mEq/L (23-29); Chloride 104 mEq/L (98-107); Glucose 115 mg/dL (70-105); Osmolality,Calculated 288 (280-300); Potassium 3.8 mEq/L (3.5-5.1); Sodium 138 mEq/L (136-145); eGFR For African Americans > 60 (> 60); eGFR For Non-African Americans > 60 (> 60)
[2018-02-02] MEDS: Fluconazole 100 MG TABLET PO SCH (11:41)
[2018-02-02] MEDS: Aspirin Enteric Coated 81 MG Tablet PO SCH (11:42)
[2018-02-02] MEDS: Nystatin POWDER 30 GM BOTTLE TP SCH ×2 (11:42→22:36)
[2018-02-02] MEDS: Simethicone 80 MG TAB.CHEW PO SCH ×3 (11:42→22:35)
[2018-02-02] MEDS: Acetaminophen 325 MG TABLET PO PRN ×2 (11:49→22:36)
--- NOTE | 2018-02-02 16:52 | Internal Med Progress Note ---
Date of Encounter: 02/02/18 Time of Encounter: 16:50 - Assessment and plan (1) CVA (cerebral vascular accident) Current Visit: Yes Status: Acute Assessment and plan: No known acute neurological deficits noted since last exam. Continued left hemiplegia. Patient with complaints of left shoulder and left hip pain during repositioning. No acute issues noted on left shoulder, other than complaints of tenderness during range of motion. X-ray of left shoulder showed spurring of rotator cuff and no acute injury or deformity. Right craniectomy site appears well-healed. We will continue with current plan of care. Qualifiers: CVA mechanism: unspecified Qualified Code(s): I63.9 - Cerebral infarction, unspecified (2) Diabetes type 2, controlled Current Visit: Yes Status: Chronic Assessment and plan: No acute issues. Patient's glucose well controlled with current medication regimen. 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 We will continue with current medications. Qualifiers: Hypertension type: essential hypertension Qualified Code(s): I10 - Essential (primary) hypertension - Time Spent With Patient less than 15 minutes - Subjective Interval history: Patient continues with complaints of slight to moderate pain to left shoulder during repositioning. X-ray of left shoulder show spurring at the rotator cuff insertion, but no acute injury. X-ray of the hip showed no acute process. Patient with left hemiplegia. Patient denies any other discomforts or issues. - Constitutional Vitals: Temp Pulse Resp BP Pulse Ox 98.6 F 70 14 122/71 93 02/02/18 07:13 02/02/18 07:13 02/02/18 07:13 02/02/18 07:13 02/02/18 07:13 General appearance: Present: A&O X 3, pleasant, no acute distress. Absent: severe distress - Head Head exam: Present: atraumatic, normocephalic - Eye Eye exam: Present: PERRL, conjuntiva pink, sclera anicteric Pupils: Present: PERRL - Neck Neck exam general surgery: Present: supple, trachea midline. Absent: lymphadenopathy - Respiratory Respiratory exam: Present: CTAB. Absent: accessory muscle use, rales, rhonchi, wheezes - Cardiovascular Cardiovascular exam: Present: RRR, +S1, +S2. Absent: diastolic murmur, gallop, rubs, systolic murmur - GI/Abdominal GI/Abdominal exam: Present: normal bowel sounds, soft, no peritoneal signs. Absent: distended, tenderness - Extremities Exam Extremities exam: Present: warm, radial pulses palpable and symmetrical. Absent : calf tenderness, cyanotic, pedal edema Additional comments: Complaints of slight tenderness during range of motion on left shoulder. No obvious injury or deformity noted - Neurological Exam Neurological exam: Present: oriented X3. Absent: facial droop, speech deficit Additional comments: Patient continues with left hemiplegia. Right craniectomy surgical site appears well-healed. - Skin Skin exam: Present: dry, intact Internal Medicine: Result - Labs CBC & Chem 7: 02/02/18 05:20 02/02/18 05:20 Labs: Short CBC 02/02/18 Range/Units 05:20 WBC 11.7 H (4.3-11.1) K/mcL Hgb 10.7 L (12.9-16.9) g/dL Hct 33.1 L (37.5-50.1) % Plt Count 278 (140-400) K/mcL Neutrophils # 7.5 (1.6-8.9) K/mcL BMP 02/02/18 05:20 Sodium 138 Potassium 3.8 Chloride 104 Carbon Dioxide 24 BUN 15 Creatinine 1.03 Glucose 115 H Calcium 9.7 - ABG Interpretation ABG results: PT/INR, D-dimer PT 14.2 Seconds (9.4-12.1) H 01/06/18 05:25 - Diagnostic Studies Other Images Status: image reviewed by me (Left shoulder x-ray) - VTE Documentation of Mechanical Device: Graduated compression elastic hosiery Consult Discharge Plan - Plan Referrals: Keven,Erika Stanton CNP [Primary Care Provider] -
[2018-02-02] MEDS: Bisacodyl 10 MG RECTAL SUPPOSITORY RC SCH (17:45)
--- NOTE | 2018-02-02 18:43 | Physical Med Progress Note ---
Date of Encounter: 02/02/18 Time of Encounter: 14:30 Assessment and Plan (1) CVA (cerebral vascular accident) Current Visit: Yes Status: Acute Assessment and plan: Slow progress Continue rehab. Working on improved trunk control. Qualifiers: CVA mechanism: unspecified Qualified Code(s): I63.9 - Cerebral infarction, unspecified (2) Hemorrhagic stroke Current Visit: No Status: Inactive Physical Medicine-PN: Subj Interval history: No c/o. Looks comfortable. Tried to stand up from w/c without supervision. - Constitutional Vitals: Vital Signs Temp Pulse Resp BP Pulse Ox 02/02/18 07:13 98.6 F 70 14 122/71 93 02/02/18 04:00 68 120/71 02/02/18 00:00 117/67 02/01/18 20:31 98.1 F 81 16 120/79 95 Intake and Output 02/02/18 02/02/18 02/02/18 07:59 15:59 23:59 Intake Total 840 / 840 Balance 840 / 840 Intake: Oral 840 / 840 Other: Meal Lunch Percent of Meal Consumed 75% # Urine Diapers 1 1 - Head Additional comments: Right hemicalvarium absent. - Respiratory Respiratory exam: Present: CTAB - Cardiovascular Cardiovascular exam: Present: RRR Physical Medicine-PN: Obj Data - Labs CBC & Chem 7: 02/02/18 05:20 02/02/18 05:20 Labs: Laboratory Results - last 24 hr 02/02/18 02/02/18 05:20 05:20 WBC 11.7 H RBC 3.63 L Hgb 10.7 L Hct 33.1 L MCV 91.2 MCH 29.5 MCHC 32.3 RDW 15.5 H Plt Count 278 MPV 10.2 Immature Gran % 0.3 Seg Neutrophils % 63.9 Lymphocytes % 18.6 Monocytes % 9.7 Eosinophils % 6.6 Basophils % 0.9 Neutrophils # 7.5 Lymphocytes # 2.2 Monocytes # 1.1 Eosinophils # 0.8 H Basophils # 0.1 Sodium 138 Potassium 3.8 Chloride 104 Carbon Dioxide 24 BUN 15 Creatinine 1.03 Est GFR ( Amer) > 60 Est GFR (Non-Af Amer) > 60 BUN/Creatinine Ratio 15 Glucose 115 H Calculated Osmolality 288 Calcium 9.7 - ABG Interpretation ABG results: PT/INR, D-dimer PT 14.2 Seconds (9.4-12.1) H 01/06/18 05:25 - VTE Documentation of Mechanical Device: Graduated compression elastic hosiery Consult Discharge Plan - Plan Referrals: Erika Baca CNP [Primary Care Provider] -
[2018-02-02] MEDS: Mirtazapine 15 MG TABLET PO SCH (22:36)
[2018-02-03] MEDS: Aspirin Enteric Coated 81 MG Tablet PO SCH (08:24)
[2018-02-03] MEDS: hydrALAZINE 25 MG TABLET GTUBE SCH ×3 (08:24→23:46)
[2018-02-03] MEDS: Simethicone 80 MG TAB.CHEW PO SCH ×3 (08:24→21:04)
[2018-02-03] MEDS: Acetaminophen 325 MG TABLET PO PRN (08:24)
[2018-02-03] MEDS: Nystatin POWDER 30 GM BOTTLE TP SCH ×2 (08:25→19:30)
--- NOTE | 2018-02-03 10:47 | Internal Med Progress Note ---
Date of Encounter: 02/03/18 Time of Encounter: 10:45 - Assessment and plan (1) CVA (cerebral vascular accident) Current Visit: Yes Status: Acute Qualifiers: CVA mechanism: unspecified Qualified Code(s): I63.9 - Cerebral infarction, unspecified (2) Diabetes type 2, controlled Current Visit: Yes Status: Chronic Qualifiers: Diabetes mellitus custodial insulin use: without custodial use Diabetes mellitus complication status: without complication Qualified Code(s): E11.9 - Type 2 diabetes mellitus without complications (3) HTN (hypertension) Current Visit: Yes Status: Chronic Qualifiers: Hypertension type: essential hypertension Qualified Code(s): I10 - Essential (primary) hypertension - Subjective Interval history: Patient continues with complaints of slight to moderate pain to left shoulder during repositioning. X-ray of left shoulder show spurring at the rotator cuff insertion, but no acute injury. Patient with left hemiplegia. Patient denies any other discomforts or issues. States that he is doing well with therapy. - Constitutional Vitals: Temp Pulse Resp BP Pulse Ox 97.7 F 68 16 149/79 95 02/03/18 07:05 02/03/18 07:05 02/03/18 07:05 02/03/18 07:05 02/03/18 07:05 General appearance: Present: A&O X 3, pleasant, no acute distress. Absent: severe distress - Head Head exam: Present: atraumatic, normocephalic - Eye Eye exam: Present: PERRL, conjuntiva pink, sclera anicteric Pupils: Present: PERRL - Neck Neck exam general surgery: Present: supple, trachea midline. Absent: lymphadenopathy - Respiratory Respiratory exam: Present: CTAB. Absent: accessory muscle use, rales, rhonchi, wheezes - Cardiovascular Cardiovascular exam: Present: RRR, +S1, +S2. Absent: diastolic murmur, gallop, rubs, systolic murmur - GI/Abdominal GI/Abdominal exam: Present: normal bowel sounds, soft, no peritoneal signs. Absent: distended, tenderness - Extremities Exam Extremities exam: Present: warm, radial pulses palpable and symmetrical. Absent : calf tenderness, cyanotic, pedal edema - Neurological Exam Neurological exam: Present: CN II-XII intact, oriented X3. Absent: facial droop , speech deficit Additional comments: Continued left hemiplegia. Right craniotomy site appears healthy. Pt wearing helmet while out of bed. Interacting well with staff. - Skin Skin exam: Present: dry, intact Internal Medicine: Result - Labs CBC & Chem 7: 02/02/18 05:20 02/02/18 05:20 - ABG Interpretation ABG results: PT/INR, D-dimer PT 14.2 Seconds (9.4-12.1) H 01/06/18 05:25 - VTE Documentation of Mechanical Device: Graduated compression elastic hosiery Consult Discharge Plan - Plan Referrals: Erika Baca FILLER PICKER [Primary Care Provider] -
[2018-02-03] MEDS: Bisacodyl 10 MG RECTAL SUPPOSITORY RC SCH (17:46)
[2018-02-03] MEDS: Mirtazapine 15 MG TABLET PO SCH (21:03)
[2018-02-04] MEDS: Aspirin Enteric Coated 81 MG Tablet PO SCH (08:15)
[2018-02-04] MEDS: Simethicone 80 MG TAB.CHEW PO SCH ×3 (08:16→21:21)
[2018-02-04] MEDS: hydrALAZINE 25 MG TABLET GTUBE SCH ×3 (08:16→23:35)
[2018-02-04] MEDS: Nystatin POWDER 30 GM BOTTLE TP SCH ×2 (08:19→19:30)
--- NOTE | 2018-02-04 13:21 | Internal Med Progress Note ---
Date of Encounter: 02/04/18 Time of Encounter: 13:19 - Assessment and plan (1) CVA (cerebral vascular accident) Current Visit: Yes Status: Acute Assessment and plan: No known acute neurological deficits noted since last exam. Continued left hemiplegia. Right craniectomy site appears well-healed. We will continue with current plan of care. Qualifiers: CVA mechanism: unspecified Qualified Code(s): I63.9 - Cerebral infarction, unspecified (2) Diabetes type 2, controlled Current Visit: Yes Status: Chronic Assessment and plan: No acute issues. Patient's glucose well controlled with current medication regimen. Qualifiers: Diabetes mellitus chief guard insulin use: without chief guard use Diabetes mellitus complication status: without complication Qualified Code(s): E11.9 - Type 2 diabetes mellitus without complications (3) HTN (hypertension) Current Visit: Yes Status: Chronic Assessment and plan: Vital signs stable. We will continue with current medications. Qualifiers: Hypertension type: essential hypertension Qualified Code(s): I10 - Essential (primary) hypertension (4) Shoulder pain, left Current Visit: Yes Status: Acute Assessment and plan: Patient continues with occasional pain to the left shoulder, likely secondary to spuring seen on xray. Pt states pain improved once heating pad was applied. Will continue with therapy and comfort measures. Qualifiers: Chronicity: acute Qualified Code(s): M25.512 - Pain in left shoulder - Time Spent With Patient less than 15 minutes - Subjective Interval history: Patient continues with complaints of occasional slight to moderate pain to left shoulder, but states now that he is receiving heat therapy to the shoulder, it has improved. X-ray of left shoulder show spurring at the rotator cuff insertion, but no acute injury. Patient with left hemiplegia. Patient denies any other discomforts or issues. States that he is doing well with therapy. - Constitutional Vitals: Temp Pulse Resp BP Pulse Ox 97.7 F 66 14 144/80 95 02/04/18 07:00 02/04/18 07:00 02/04/18 07:00 02/04/18 07:00 02/04/18 07:00 General appearance: Present: A&O X 3, pleasant, no acute distress. Absent: severe distress - Head Head exam: Present: atraumatic, normocephalic - Eye Eye exam: Present: PERRL, conjuntiva pink, sclera anicteric Pupils: Present: PERRL - Neck Neck exam general surgery: Present: supple, trachea midline. Absent: lymphadenopathy - Respiratory Respiratory exam: Present: CTAB. Absent: accessory muscle use, rales, rhonchi, wheezes - Cardiovascular Cardiovascular exam: Present: RRR, +S1, +S2. Absent: diastolic murmur, gallop, rubs, systolic murmur - GI/Abdominal GI/Abdominal exam: Present: normal bowel sounds, soft, no peritoneal signs. Absent: distended, tenderness - Extremities Exam Extremities exam: Present: warm, radial pulses palpable and symmetrical. Absent : calf tenderness, cyanotic, pedal edema Additional comments: Left shoulder shows no obvious injury or deformity. No tenderness on palpation , but noted slight tenderness during range of motion - Neurological Exam Neurological exam: Present: CN II-XII intact, oriented X3. Absent: pronater drift, facial droop, speech deficit Additional comments: Patient continues to have left hemiplegia. Right craniectomy surgical site appears well-healed. No other acute neurological deficits noted on exam - Skin Skin exam: Present: dry, intact Internal Medicine: Result - Labs CBC & Chem 7: 02/02/18 05:20 02/02/18 05:20 - ABG Interpretation ABG results: PT/INR, D-dimer PT 14.2 Seconds (9.4-12.1) H 01/06/18 05:25 - VTE Documentation of Mechanical Device: Graduated compression elastic hosiery Consult Discharge Plan - Plan Referrals: Erika Baca CNP [Primary Care Provider] -
--- NOTE | 2018-02-04 18:06 | Physical Med Progress Note ---
Date of Encounter: 02/04/18 Time of Encounter: 16:05 Assessment and Plan (1) CVA (cerebral vascular accident) Current Visit: Yes Status: Acute Assessment and plan: Slow progress. Left shoulder pain seems to have moderated. Still having random BMs on bowel training program. Will modify sennokot. Admit to Rehab Qualifiers: CVA mechanism: unspecified Qualified Code(s): I63.9 - Cerebral infarction, unspecified (2) Hemorrhagic stroke Current Visit: No Status: Inactive Physical Medicine-PN: Subj Interval history: No c/o. - Constitutional Vitals: Vital Signs Temp Pulse Resp BP Pulse Ox 02/04/18 07:00 97.7 F 66 14 144/80 95 02/03/18 19:43 98.1 F 89 16 133/75 97 Intake and Output 02/04/18 02/04/18 02/04/18 07:59 15:59 23:59 Intake Total 240 / 240 Balance 240 / 240 Intake: Oral 240 / 240 Other: Meal Breakfast Percent of Meal Consumed 90% # Urine Diapers 1 General appearance: cooperative, no acute distress - Extremities Exam Extremities exam: Present: normal inspection Additional comments: LUE Flaccid. - Psychiatric Psychiatric exam: Present: flat affect Additional comments: PHQ-9 administered. Pt scored 11/27 putting him in moderate depression category. Discussed with Dr. Craft and starting Ciera. Physical Medicine-PN: Obj Data - Labs CBC & Chem 7: 02/02/18 05:20 02/02/18 05:20 - ABG Interpretation ABG results: PT/INR, D-dimer PT 14.2 Seconds (9.4-12.1) H 01/06/18 05:25 - VTE Documentation of Mechanical Device: Graduated compression elastic hosiery Consult Discharge Plan - Plan Referrals: Keven,Erika Stanton BAG PATCHER [Primary Care Provider] -
[2018-02-04] MEDS: Bisacodyl 10 MG RECTAL SUPPOSITORY RC SCH (18:57)
[2018-02-04] MEDS: Mirtazapine 15 MG TABLET PO SCH (21:20)
[2018-02-05] MEDS: Sennosides 8.6 MG TABLET PO SCH (05:32)
[2018-02-05] MEDS: Aspirin Enteric Coated 81 MG Tablet PO SCH (08:36)
[2018-02-05] MEDS: hydrALAZINE 25 MG TABLET GTUBE SCH ×3 (08:36→22:32)
[2018-02-05] MEDS: Simethicone 80 MG TAB.CHEW PO SCH ×3 (08:36→22:31)
[2018-02-05] MEDS: Nystatin POWDER 30 GM BOTTLE TP SCH ×2 (08:37→22:32)
--- NOTE | 2018-02-05 13:50 | Internal Med Progress Note ---
Date of Encounter: 02/05/18 Time of Encounter: 13:48 - Assessment and plan (1) CVA (cerebral vascular accident) Current Visit: Yes Status: Acute Assessment and plan: No new neurological deficits. Left-sided hemiplegia. Continues to participate with PT\OT\ST. Will continue to monitor Qualifiers: CVA mechanism: unspecified Qualified Code(s): I63.9 - Cerebral infarction, unspecified (2) Diabetes type 2, controlled Current Visit: Yes Status: Chronic Assessment and plan: Controlled with current medications. Continue to monitor fingerstick blood sugars and will adjust medications as necessary. 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 Monitor blood pressure Qualifiers: Hypertension type: essential hypertension Qualified Code(s): I10 - Essential (primary) hypertension - Time Spent With Patient less than 15 minutes - Subjective Interval history: Patient currently up in wheelchair propelling self. Patient states improvement on shoulder pain. Therapy working with that as well as using heating pad in between. at bedside. Patient denies any concerns or complaints at this time. Bowels moving as normal. Maintaining appetite and hydration - Constitutional Vitals: Temp Pulse Resp BP Pulse Ox 97.9 F 69 16 125/75 95 02/05/18 07:23 02/05/18 07:23 02/05/18 07:23 02/05/18 07:23 02/05/18 07:23 General appearance: Present: A&O X 3, pleasant, no acute distress. Absent: severe distress - Head Head exam: Present: atraumatic, normocephalic - Eye Eye exam: Present: PERRL, conjuntiva pink, sclera anicteric Pupils: Present: PERRL - Neck Neck exam general surgery: Present: supple, trachea midline. Absent: lymphadenopathy - Respiratory Respiratory exam: Present: CTAB. Absent: accessory muscle use, rales, rhonchi, wheezes - Cardiovascular Cardiovascular exam: Present: RRR, +S1, +S2. Absent: diastolic murmur, gallop, rubs, systolic murmur - GI/Abdominal GI/Abdominal exam: Present: normal bowel sounds, soft, no peritoneal signs. Absent: distended, tenderness - Extremities Exam Extremities exam: Present: warm, radial pulses palpable and symmetrical. Absent : calf tenderness, cyanotic, pedal edema Additional comments: Left hemiplegia - Neurological Exam Neurological exam: Present: CN II-XII intact, oriented X3, no focal deficits. Absent: pronater drift, facial droop, speech deficit - Skin Skin exam: Present: dry, intact Internal Medicine: Result - Labs CBC & Chem 7: 02/02/18 05:20 02/02/18 05:20 - ABG Interpretation ABG results: PT/INR, D-dimer PT 14.2 Seconds (9.4-12.1) H 01/06/18 05:25 - VTE Documentation of Mechanical Device: Graduated compression elastic hosiery Consult Discharge Plan - Plan Referrals: Erika Baca MANAGER AIR [Primary Care Provider] -
[2018-02-05] MEDS: Bisacodyl 10 MG RECTAL SUPPOSITORY RC SCH (22:30)
[2018-02-05] MEDS: Mirtazapine 15 MG TABLET PO SCH (22:32)
[2018-02-05] MEDS: Acetaminophen 325 MG TABLET PO PRN (22:32)
[2018-02-06] MEDS: Sennosides 8.6 MG TABLET PO SCH (06:15)
[2018-02-06] MEDS: hydrALAZINE 25 MG TABLET GTUBE SCH ×3 (08:17→22:54)
[2018-02-06] MEDS: Simethicone 80 MG TAB.CHEW PO SCH ×3 (08:17→22:54)
[2018-02-06] MEDS: Acetaminophen 325 MG TABLET PO PRN ×2 (08:17→22:54)
[2018-02-06] MEDS: Nystatin POWDER 30 GM BOTTLE TP SCH ×2 (08:18→22:53)
[2018-02-06] MEDS: Aspirin Enteric Coated 81 MG Tablet PO SCH (08:18)
--- NOTE | 2018-02-06 14:04 | Internal Med Progress Note ---
Date of Encounter: 02/06/18 Time of Encounter: 14:02 - Assessment and plan (1) CVA (cerebral vascular accident) Current Visit: Yes Status: Acute Assessment and plan: No new neurological deficits. Left-sided hemiplegia. Continues to participate with PT\OT\ST. Will continue to monitor Qualifiers: CVA mechanism: unspecified Qualified Code(s): I63.9 - Cerebral infarction, unspecified (2) Diabetes type 2, controlled Current Visit: Yes Status: Chronic Assessment and plan: Controlled with current medications. Continue to monitor fingerstick blood sugars and will adjust medications as necessary. Qualifiers: Diabetes mellitus supervisor long goods insulin use: without chcf use Diabetes mellitus complication status: without complication Qualified Code(s): E11.9 - Type 2 diabetes mellitus without complications (3) HTN (hypertension) Current Visit: Yes Status: Chronic Assessment and plan: Stable with current medications. Monitor blood pressure Qualifiers: Hypertension type: essential hypertension Qualified Code(s): I10 - Essential (primary) hypertension - Time Spent With Patient less than 15 minutes - Subjective Interval history: Patient currently up in wheelchair participating with therapy. denies pain. propelling self in [facility]. states shoulder feeling better. no new neuro deficit. bowels moving daily. maintaining appetite and hydration. - Constitutional Vitals: Temp Pulse Resp BP Pulse Ox 98.2 F 68 16 138/67 93 02/06/18 07:01 02/06/18 07:01 02/06/18 07:01 02/06/18 07:01 02/06/18 07:01 General appearance: Present: A&O X 3, pleasant, no acute distress. Absent: severe distress - Head Head exam: Present: atraumatic, normocephalic - Eye Eye exam: Present: PERRL, conjuntiva pink, sclera anicteric Pupils: Present: PERRL - Neck Neck exam general surgery: Present: supple, trachea midline. Absent: lymphadenopathy - Respiratory Respiratory exam: Present: CTAB. Absent: accessory muscle use, rales, rhonchi, wheezes - Cardiovascular Cardiovascular exam: Present: RRR, +S1, +S2. Absent: diastolic murmur, gallop, rubs, systolic murmur - GI/Abdominal GI/Abdominal exam: Present: normal bowel sounds, soft, no peritoneal signs. Absent: distended, tenderness - Extremities Exam Extremities exam: Present: warm, radial pulses palpable and symmetrical. Absent : calf tenderness, cyanotic, pedal edema Additional comments: left hemiplegia - Neurological Exam Neurological exam: Present: CN II-XII intact, oriented X3, no focal deficits. Absent: pronater drift, facial droop, speech deficit - Skin Skin exam: Present: dry, intact Internal Medicine: Result - Labs CBC & Chem 7: 02/02/18 05:20 02/02/18 05:20 - ABG Interpretation ABG results: PT/INR, D-dimer PT 14.2 Seconds (9.4-12.1) H 01/06/18 05:25 - VTE Documentation of Mechanical Device: Graduated compression elastic hosiery Consult Discharge Plan - Plan Referrals: Erika Baca PILE DRIVER OPERATOR [Primary Care Provider] -
[2018-02-06] MEDS: Bisacodyl 10 MG RECTAL SUPPOSITORY RC SCH (17:41)
[2018-02-06] MEDS: Mirtazapine 15 MG TABLET PO SCH (22:53)
[2018-02-07] MEDS: Sennosides 8.6 MG TABLET PO SCH (06:35)
[2018-02-07] MEDS: Simethicone 80 MG TAB.CHEW PO SCH ×3 (09:41→20:39)
[2018-02-07] MEDS: hydrALAZINE 25 MG TABLET GTUBE SCH ×3 (09:41→23:50)
[2018-02-07] MEDS: Aspirin Enteric Coated 81 MG Tablet PO SCH (09:41)
[2018-02-07] MEDS: Acetaminophen 325 MG TABLET PO PRN (09:41)
[2018-02-07] MEDS: Nystatin POWDER 30 GM BOTTLE TP SCH ×2 (09:42→20:39)
--- NOTE | 2018-02-07 14:11 | Internal Med Progress Note ---
Date of Encounter: 02/07/18 Time of Encounter: 14:09 - Assessment and plan (1) Stroke determined by clinical assessment Current Visit: No Status: Acute Assessment and plan: We will continue with current plan. Anticipated follow-up visit with nurse clinician of neurosurgery at [facility], on 02/13/2018. (2) HTN (hypertension) Current Visit: Yes Status: Chronic Assessment and plan: Clinically stable. We will continue home regimen and follow. Qualifiers: Hypertension type: essential hypertension Qualified Code(s): I10 - Essential (primary) hypertension (3) Hypothyroid Current Visit: No Status: Chronic Assessment and plan: Clinically stable. Qualifiers: Hypothyroidism type: unspecified Qualified Code(s): E03.9 - Hypothyroidism , unspecified (4) Diabetes type 2, controlled Current Visit: Yes Status: Chronic Assessment and plan: Clinically stable. We will continue current regimen and follow. Qualifiers: Diabetes mellitus termite control technician insulin use: without termite control technician use Diabetes mellitus complication status: without complication Qualified Code(s): E11.9 - Type 2 diabetes mellitus without complications (5) Gallbladder anomaly Current Visit: Yes Status: Acute Assessment and plan: Asymptomatic. We will follow intermittently complete metabolic panels to monitor function and enzymes. (6) Monilial intertrigo Current Visit: Yes Status: Acute Assessment and plan: Improving. We will continue suppressive nystatin powder. (7) Shoulder pain, left Current Visit: Yes Status: Acute Assessment and plan: No change. Qualifiers: Chronicity: acute Qualified Code(s): M25.512 - Pain in left shoulder - Time Spent With Patient 25 - 35 minutes - Subjective Interval history: Patient is without complaint or other issue. He is pleased be getting a haircut today. Patient has no complaint of chest discomfort, dyspnea, orthopnea, palpitations, nausea or vomiting, constipation or diarrhea, other changes in bowel habits, difficulty with urination, rash or itching, or other new complaints. Review of systems is otherwise unremarkable. - Constitutional Vitals: Temp Pulse Resp BP Pulse Ox 98.0 F 65 16 137/72 95 02/07/18 07:49 02/07/18 07:49 02/07/18 07:49 02/07/18 07:49 02/07/18 07:49 General appearance: Present: A&O X 3, pleasant, no acute distress. Absent: severe distress Exam: Examination: (Except as mentioned above): General: In no apparent distress. Alert and oriented 3. Nondiaphoretic. Head: Atraumatic and normocephalic. Respiratory: No use of accessory muscles. Lungs are clear throughout. Normal airflow. Cardiovascular: Regular rate and rhythm without murmur appreciated. Abdomen: Bowel sounds are normal. No hepatosplenomegaly mass or tenderness appreciated. Obese and therefore difficult to palpate deeply. Extremities: No cyanosis clubbing or edema. Skin: Warm and non-diaphoretic with no new lesions noted. Neurologic: Still with dense left hemiparesis. Internal Medicine: Result - Labs CBC & Chem 7: 02/02/18 05:20 02/02/18 05:20 - ABG Interpretation ABG results: PT/INR, D-dimer PT 14.2 Seconds (9.4-12.1) H 01/06/18 05:25 - VTE Documentation of Mechanical Device: Graduated compression elastic hosiery Consult Discharge Plan - Plan Referrals: Erika Baca ELECTRICAL PLUMBING SUPERVISOR [Primary Care Provider] -
[2018-02-07] MEDS: Bisacodyl 10 MG RECTAL SUPPOSITORY RC SCH (19:00)
[2018-02-07] MEDS: Mirtazapine 15 MG TABLET PO SCH (20:38)
[2018-02-08] MEDS: Sennosides 8.6 MG TABLET PO SCH (05:02)
--- NOTE | 2018-02-08 07:29 | Internal Med Progress Note ---
Date of Encounter: 02/08/18 Time of Encounter: 07:24 - Assessment and plan (1) Stroke determined by clinical assessment Current Visit: No Status: Acute Assessment and plan: We will continue with current plan. Anticipated follow-up visit with nurse clinician of neurosurgery at [facility], on 02/13/2018. (2) HTN (hypertension) Current Visit: Yes Status: Chronic Assessment and plan: Clinically stable. We will continue home regimen and follow. Qualifiers: Hypertension type: essential hypertension Qualified Code(s): I10 - Essential (primary) hypertension (3) Hypothyroid Current Visit: No Status: Chronic Assessment and plan: Clinically stable. Qualifiers: Hypothyroidism type: unspecified Qualified Code(s): E03.9 - Hypothyroidism , unspecified (4) Diabetes type 2, controlled Current Visit: Yes Status: Chronic Assessment and plan: Clinically stable. We will continue current regimen and follow. Qualifiers: Diabetes mellitus intermediate card tender insulin use: without intermediate card tender use Diabetes mellitus complication status: without complication Qualified Code(s): E11.9 - Type 2 diabetes mellitus without complications (5) Gallbladder anomaly Current Visit: Yes Status: Acute Assessment and plan: Asymptomatic. We will follow intermittently complete metabolic panels to monitor function and enzymes. (6) Monilial intertrigo Current Visit: Yes Status: Acute Assessment and plan: Improving. We will continue suppressive nystatin powder. (7) Shoulder pain, left Current Visit: Yes Status: Acute Assessment and plan: He seems to be having fewer complaints. Qualifiers: Chronicity: acute Qualified Code(s): M25.512 - Pain in left shoulder - Time Spent With Patient 25 - 35 minutes - Subjective Interval history: Patient is resting quietly upon my arrival. He denies acute complaints. He notes that he does not want to take his hydrochlorothiazide at bedtime because he awakens wet. (He is not taking this medication.) Patient has no complaint of chest discomfort, dyspnea, orthopnea, palpitations, nausea or vomiting, constipation or diarrhea, other changes in bowel habits, difficulty with urination, rash or itching, or other new complaints. Review of systems is otherwise unremarkable. - Constitutional Vitals: Temp Pulse Resp BP Pulse Ox 98.3 F 83 19 146/78 94 02/07/18 19:26 02/07/18 19:26 02/07/18 19:26 02/07/18 19:26 02/07/18 19:26 General appearance: Present: A&O X 3, pleasant, no acute distress. Absent: severe distress Exam: Examination: (Except as mentioned above): Examination is unchanged. General: In no apparent distress. Alert and oriented 3. Nondiaphoretic. Head: Atraumatic and normocephalic. Respiratory: No use of accessory muscles. Lungs are clear throughout. Normal airflow. Cardiovascular: Regular rate and rhythm without murmur appreciated. Abdomen: Bowel sounds are normal. No hepatosplenomegaly mass or tenderness appreciated. Obese and therefore difficult to palpate deeply. Extremities: No cyanosis clubbing or edema. Still with dense left hemiparesis. Skin: Warm and non-diaphoretic with no new lesions noted. Internal Medicine: Result - Labs CBC & Chem 7: 02/02/18 05:20 02/02/18 05:20 - ABG Interpretation ABG results: PT/INR, D-dimer PT 14.2 Seconds (9.4-12.1) H 01/06/18 05:25 - VTE Documentation of Mechanical Device: Graduated compression elastic hosiery Consult Discharge Plan - Plan Referrals: Erika Baca ELDER COUNSELOR [Primary Care Provider] -
[2018-02-08] MEDS: hydrALAZINE 25 MG TABLET GTUBE SCH ×3 (08:46→23:48)
[2018-02-08] MEDS: Aspirin Enteric Coated 81 MG Tablet PO SCH (08:46)
[2018-02-08] MEDS: Simethicone 80 MG TAB.CHEW PO SCH ×3 (08:46→19:30)
[2018-02-08] MEDS: Nystatin POWDER 30 GM BOTTLE TP SCH ×2 (08:48→19:30)
[2018-02-08] MEDS: Bisacodyl 10 MG RECTAL SUPPOSITORY RC SCH (18:47)
[2018-02-08] MEDS: Mirtazapine 15 MG TABLET PO SCH (19:30)
[2018-02-09] MEDS: Sennosides 8.6 MG TABLET PO SCH (03:57)
[2018-02-09 06:47] LABS: Basophils # 0.1 K/mcL (0.0-0.2); Basophils % 0.8 %; Eosinophils # 0.7 K/mcL (0.0-0.6); Eosinophils % 5.7 %; Hematocrit 33.1 % (37.5-50.1); Hemoglobin 10.9 g/dL (12.9-16.9); Immature Granulocytes % 0.4 % (0-4); Lymphocytes # 1.8 K/mcL (0.6-4.6); Lymphocytes % 15.2 %; Mean Corpuscular HGB Conc 32.9 g/dL (31.6-35.5); Mean Corpuscular Hemoglobin 29.8 pg (28.0-33.3); Mean Corpuscular Volume 90.4 fL (83.0-100.0); Mean Platelet Volume 9.6 fL (9.4-12.4); Monocytes % 8.1 %; Platelet Count 306 K/mcL (140-400); Red Blood Count 3.66 M/mcL (4.19-5.50); Red Cell Distribution Width 14.6 % (11.5-14.5); Segmented Neutrophils % 69.8 %
[2018-02-09 07:10] LABS: BUN/Creatinine Ratio 10 (6-26); Blood Urea Nitrogen 12 mg/dL (8-23); Calcium 9.8 mg/dL (8.6-10.3); Carbon Dioxide 27 mEq/L (23-29); Chloride 102 mEq/L (98-107); Glucose 124 mg/dL (70-105); Osmolality,Calculated 283 (280-300); Sodium 136 mEq/L (136-145); eGFR For African Americans > 60 (> 60); eGFR For Non-African Americans > 60 (> 60)
[2018-02-09 07:12] LABS: Neutrophils # 8.5 K/mcL (1.6-8.9)
[2018-02-09] MEDS: hydrALAZINE 25 MG TABLET GTUBE SCH ×3 (08:18→23:54)
[2018-02-09] MEDS: Aspirin Enteric Coated 81 MG Tablet PO SCH (08:19)
[2018-02-09] MEDS: Simethicone 80 MG TAB.CHEW PO SCH ×3 (09:55→21:29)
[2018-02-09] MEDS: Nystatin POWDER 30 GM BOTTLE TP SCH ×2 (11:26→21:30)
--- NOTE | 2018-02-09 17:47 | Internal Med Progress Note ---
Date of Encounter: 02/09/18 Time of Encounter: 16:20 - Assessment and plan (1) Stroke determined by clinical assessment Current Visit: No Status: Acute Assessment and plan: We will continue with current plan. Anticipated follow-up visit with nurse clinician of neurosurgery at [facility], on 02/13/2018. (2) HTN (hypertension) Current Visit: Yes Status: Chronic Assessment and plan: Clinically stable. We will continue home regimen and follow. Qualifiers: Hypertension type: essential hypertension Qualified Code(s): I10 - Essential (primary) hypertension (3) Hypothyroid Current Visit: No Status: Chronic Assessment and plan: Clinically stable. Qualifiers: Hypothyroidism type: unspecified Qualified Code(s): E03.9 - Hypothyroidism , unspecified (4) Diabetes type 2, controlled Current Visit: Yes Status: Chronic Assessment and plan: Clinically stable. We will continue current regimen and follow. Qualifiers: Diabetes mellitus superintendent terminal insulin use: without superintendent terminal use Diabetes mellitus complication status: without complication Qualified Code(s): E11.9 - Type 2 diabetes mellitus without complications (5) Gallbladder anomaly Current Visit: Yes Status: Acute Assessment and plan: Asymptomatic. We will follow intermittently complete metabolic panels to monitor function and enzymes. (6) Monilial intertrigo Current Visit: Yes Status: Acute Assessment and plan: As above, we will continue nystatin powder applied topically twice a day and give him 4 days of Diflucan because this is recurrent. (7) Shoulder pain, left Current Visit: Yes Status: Acute Assessment and plan: He seems to be having fewer complaints. Qualifiers: Chronicity: acute Qualified Code(s): M25.512 - Pain in left shoulder - Time Spent With Patient 25 - 35 minutes - Subjective Interval history: Patient is resting quietly upon my arrival, but not sleeping. He has no current complaints. He again asks about his hydrochlorothiazide and I told him that he is not receiving that. His nurse confirmed that he has not been getting that. He believes that is the reason for his incontinence and I explained to him that this is possibly related to other medications are more likely change in position and lack of sensation from his stroke. He is eating relatively well and doing better in therapies. We talked about him in a team rehabilitation meeting and in general, his progress continues.) Nursing notes that he is becoming red to her again in his groin, even with the nystatin powder. When asked about this, the patient confirms that he is having more burning in these areas. I told him that we would again try to suppress this with oral Diflucan. Patient has no complaint of chest discomfort, dyspnea, orthopnea, palpitations, nausea or vomiting, constipation or diarrhea, other changes in bowel habits, difficulty with urination, rash or itching, or other new complaints. Review of systems is otherwise unremarkable. - Constitutional Vitals: Temp Pulse Resp BP Pulse Ox 98.0 F 61 16 119/74 93 02/09/18 07:00 02/09/18 07:00 02/09/18 07:00 02/09/18 07:00 02/09/18 07:00 General appearance: Present: A&O X 3, pleasant, no acute distress. Absent: severe distress Exam: Examination: (Except as mentioned above): General: In no apparent distress. Alert and oriented 3. Nondiaphoretic. Head: Atraumatic and normocephalic. Respiratory: No use of accessory muscles. Lungs are clear throughout. Normal airflow. Cardiovascular: Regular rate and rhythm without murmur appreciated. Abdomen: Bowel sounds are normal. No hepatosplenomegaly mass or tenderness appreciated. Obese and therefore difficult to palpate deeply. Extremities: No cyanosis clubbing or edema. Skin: Warm and non-diaphoretic with no new lesions noted. He has persistent intertrigo, as noted. He has persistent dense left hemiparesis. Internal Medicine: Result - Labs CBC & Chem 7: 02/09/18 06:30 02/09/18 06:30 Labs: Short CBC 02/09/18 Range/Units 06:30 WBC 12.1 H (4.3-11.1) K/mcL Hgb 10.9 L (12.9-16.9) g/dL Hct 33.1 L (37.5-50.1) % Plt Count 306 (140-400) K/mcL Neutrophils # 8.5 (1.6-8.9) K/mcL BMP 02/09/18 06:30 Sodium 136 Potassium 4.0 Chloride 102 Carbon Dioxide 27 BUN 12 Creatinine 1.18 Glucose 124 H Calcium 9.8 - ABG Interpretation ABG results: PT/INR, D-dimer PT 14.2 Seconds (9.4-12.1) H 01/06/18 05:25 - VTE Documentation of Mechanical Device: Graduated compression elastic hosiery Consult Discharge Plan - Plan Referrals: Erika Baca CNP [Primary Care Provider] -
[2018-02-09] MEDS: Bisacodyl 10 MG RECTAL SUPPOSITORY RC SCH (21:29)
[2018-02-09] MEDS: Mirtazapine 15 MG TABLET PO SCH (21:29)
[2018-02-10] MEDS: Sennosides 8.6 MG TABLET PO SCH (05:07)
[2018-02-10] MEDS: Simethicone 80 MG TAB.CHEW PO SCH ×3 (08:32→21:40)
[2018-02-10] MEDS: hydrALAZINE 25 MG TABLET GTUBE SCH ×3 (08:33→23:29)
[2018-02-10] MEDS: Aspirin Enteric Coated 81 MG Tablet PO SCH (08:33)
[2018-02-10] MEDS: Fluconazole 100 MG TABLET PO SCH (08:33)
--- NOTE | 2018-02-10 11:29 | Internal Med Progress Note ---
Date of Encounter: 02/10/18 Time of Encounter: 11:26 - Assessment and plan (1) CVA (cerebral vascular accident) Current Visit: Yes Status: Acute Assessment and plan: No new neurological deficits. Left-sided hemiplegia. Continues to participate with PT\OT\ST. Will continue to monitor Qualifiers: CVA mechanism: unspecified Qualified Code(s): I63.9 - Cerebral infarction, unspecified (2) Diabetes type 2, controlled Current Visit: Yes Status: Chronic Assessment and plan: Controlled with current medications. Continue to monitor fingerstick blood sugars and will adjust medications as necessary. Qualifiers: Diabetes mellitus head of visual merchandising insulin use: without retirement use Diabetes mellitus complication status: without complication Qualified Code(s): E11.9 - Type 2 diabetes mellitus without complications (3) HTN (hypertension) Current Visit: Yes Status: Chronic Assessment and plan: Stable with current medications. Monitor blood pressure Qualifiers: Hypertension type: essential hypertension Qualified Code(s): I10 - Essential (primary) hypertension (4) Shoulder pain, left Current Visit: Yes Status: Acute Assessment and plan: Continue to monitor for improvement or worsening. Continue physical therapy. Qualifiers: Chronicity: acute Qualified Code(s): M25.512 - Pain in left shoulder - Time Spent With Patient less than 15 minutes - Subjective Interval history: Patient currently up in wheelchair participating with therapy. propelling self in [facility] in hallway. Complaining of left shoulder and left hip pain. Physical therapy has been working to relief pain. no new neuro deficit. bowels moving daily with bowel program.. maintaining appetite and hydration. No new neurological deficits. - Constitutional Vitals: Temp Pulse Resp BP Pulse Ox 98.5 F 66 16 121/67 95 02/10/18 07:00 02/10/18 07:00 02/10/18 07:00 02/10/18 07:00 02/10/18 07:00 General appearance: Present: A&O X 3, pleasant, no acute distress. Absent: severe distress - Head Head exam: Present: atraumatic, normocephalic - Eye Eye exam: Present: PERRL, conjuntiva pink, sclera anicteric Pupils: Present: PERRL - Neck Neck exam general surgery: Present: supple, trachea midline. Absent: lymphadenopathy - Respiratory Respiratory exam: Present: CTAB. Absent: accessory muscle use, rales, rhonchi, wheezes - Cardiovascular Cardiovascular exam: Present: RRR, +S1, +S2. Absent: diastolic murmur, gallop, rubs, systolic murmur - GI/Abdominal GI/Abdominal exam: Present: normal bowel sounds, soft, no peritoneal signs. Absent: distended, tenderness - Extremities Exam Extremities exam: Present: warm, radial pulses palpable and symmetrical. Absent : calf tenderness, cyanotic, pedal edema Additional comments: Left hemiplegia - Neurological Exam Neurological exam: Present: CN II-XII intact, oriented X3, no focal deficits. Absent: pronater drift, facial droop, speech deficit - Skin Skin exam: Present: dry, intact Internal Medicine: Result - Labs CBC & Chem 7: 02/09/18 06:30 02/09/18 06:30 - ABG Interpretation ABG results: PT/INR, D-dimer PT 14.2 Seconds (9.4-12.1) H 01/06/18 05:25 - VTE Documentation of Mechanical Device: Graduated compression elastic hosiery Consult Discharge Plan - Plan Referrals: Erika Baca MERCHANDISING MANAGER [Primary Care Provider] -
[2018-02-10] MEDS: Nystatin POWDER 30 GM BOTTLE TP SCH ×2 (13:16→21:41)
[2018-02-10] MEDS: Bisacodyl 10 MG RECTAL SUPPOSITORY RC SCH (17:31)
[2018-02-10] MEDS: Mirtazapine 15 MG TABLET PO SCH (21:40)
[2018-02-11] MEDS: Sennosides 8.6 MG TABLET PO SCH (04:45)
[2018-02-11] MEDS: Fluconazole 100 MG TABLET PO SCH (07:55)
[2018-02-11] MEDS: Nystatin POWDER 30 GM BOTTLE TP SCH ×2 (07:56→21:13)
[2018-02-11] MEDS: Simethicone 80 MG TAB.CHEW PO SCH ×3 (07:56→21:05)
[2018-02-11] MEDS: Aspirin Enteric Coated 81 MG Tablet PO SCH (07:56)
[2018-02-11] MEDS: hydrALAZINE 25 MG TABLET GTUBE SCH ×2 (07:56→17:52)
--- NOTE | 2018-02-11 14:04 | Internal Med Progress Note ---
Date of Encounter: 02/11/18 Time of Encounter: 14:02 - Assessment and plan (1) CVA (cerebral vascular accident) Current Visit: Yes Status: Acute Assessment and plan: No new neurological deficits. Left-sided hemiplegia. Continues to participate with PT\OT\ST. Will continue to monitor. scheduled for F/u with neuro at [facility] on friday. Qualifiers: CVA mechanism: unspecified Qualified Code(s): I63.9 - Cerebral infarction, unspecified (2) Diabetes type 2, controlled Current Visit: Yes Status: Chronic Assessment and plan: Controlled with current medications. Continue to monitor fingerstick blood sugars and will adjust medications as necessary. Qualifiers: Diabetes mellitus local intermodal truck driver insulin use: without local intermodal truck driver use Diabetes mellitus complication status: without complication Qualified Code(s): E11.9 - Type 2 diabetes mellitus without complications (3) HTN (hypertension) Current Visit: Yes Status: Chronic Assessment and plan: Stable with current medications. Monitor blood pressure Qualifiers: Hypertension type: essential hypertension Qualified Code(s): I10 - Essential (primary) hypertension (4) Shoulder pain, left Current Visit: Yes Status: Acute Qualifiers: Chronicity: acute Qualified Code(s): M25.512 - Pain in left shoulder - Subjective Interval history: Patient currently up in wheelchair participating with therapy. propelling self in [facility] in hallway. denies pain. Physical therapy has been working to relief pain. no new neuro deficit. bowels moving daily with bowel program. has also been incontinent of bowel and bladder. will set up a toilet in advance of need with nursing staff. maintaining appetite and hydration. No new neurological deficits. will be starting family training with and brother next week to prepare for discharge. - Constitutional Vitals: Temp Pulse Resp BP Pulse Ox 97.9 F 65 16 128/76 94 02/11/18 07:00 02/11/18 07:00 02/11/18 07:00 02/11/18 07:00 02/11/18 07:00 General appearance: Present: A&O X 3, pleasant, no acute distress. Absent: severe distress - Head Head exam: Present: atraumatic, normocephalic - Eye Eye exam: Present: PERRL, conjuntiva pink, sclera anicteric Pupils: Present: PERRL - Neck Neck exam general surgery: Present: supple, trachea midline. Absent: lymphadenopathy - Respiratory Respiratory exam: Present: CTAB. Absent: accessory muscle use, rales, rhonchi, wheezes - Cardiovascular Cardiovascular exam: Present: RRR, +S1, +S2. Absent: diastolic murmur, gallop, rubs, systolic murmur - GI/Abdominal GI/Abdominal exam: Present: normal bowel sounds, soft, no peritoneal signs. Absent: distended, tenderness - Extremities Exam Extremities exam: Present: warm, radial pulses palpable and symmetrical. Absent : calf tenderness, cyanotic, pedal edema Additional comments: left hemiplegia. - Neurological Exam Neurological exam: Present: CN II-XII intact, oriented X3, no focal deficits. Absent: pronater drift, facial droop, speech deficit - Skin Skin exam: Present: dry, intact Internal Medicine: Result - Labs CBC & Chem 7: 02/09/18 06:30 02/09/18 06:30 - ABG Interpretation ABG results: PT/INR, D-dimer PT 14.2 Seconds (9.4-12.1) H 01/06/18 05:25 - VTE Documentation of Mechanical Device: Graduated compression elastic hosiery Consult Discharge Plan - Plan Referrals: Keven,Erika Stanton FLARE WORKER [Primary Care Provider] -
[2018-02-11] MEDS: Bisacodyl 10 MG RECTAL SUPPOSITORY RC SCH (17:54)
[2018-02-11] MEDS: Acetaminophen 325 MG TABLET PO PRN (21:05)
[2018-02-12] MEDS: hydrALAZINE 25 MG TABLET GTUBE SCH ×4 (02:09→22:30)
--- NOTE | 2018-02-12 09:19 | Internal Med Progress Note ---
Date of Encounter: 02/12/18 Time of Encounter: 09:17 - Assessment and plan (1) Stroke determined by clinical assessment Current Visit: No Status: Acute Assessment and plan: We will continue with current plan. Anticipated follow-up visit with nurse clinician of neurosurgery at [facility], on 02/13/2018. (2) HTN (hypertension) Current Visit: Yes Status: Chronic Assessment and plan: Clinically stable. We will continue home regimen and follow. Qualifiers: Hypertension type: essential hypertension Qualified Code(s): I10 - Essential (primary) hypertension (3) Hypothyroid Current Visit: No Status: Chronic Assessment and plan: Clinically stable. Qualifiers: Hypothyroidism type: unspecified Qualified Code(s): E03.9 - Hypothyroidism , unspecified (4) Diabetes type 2, controlled Current Visit: Yes Status: Chronic Assessment and plan: Clinically stable. We will continue current regimen and follow. Qualifiers: Diabetes mellitus unit controller insulin use: without unit controller use Diabetes mellitus complication status: without complication Qualified Code(s): E11.9 - Type 2 diabetes mellitus without complications (5) Gallbladder anomaly Current Visit: Yes Status: Acute Assessment and plan: Asymptomatic. We will follow intermittently complete metabolic panels to monitor function and enzymes. (6) Monilial intertrigo Current Visit: Yes Status: Acute Assessment and plan: As above, we will continue nystatin powder applied topically twice a day and he is on 4 days of Diflucan because this is recurrent. (7) Shoulder pain, left Current Visit: Yes Status: Acute Assessment and plan: Improving with fewer complaints. Qualifiers: Chronicity: acute Qualified Code(s): M25.512 - Pain in left shoulder - Time Spent With Patient less than 15 minutes - Subjective Interval history: He is without acute complaint. No change in his current issues. He notes that he is burning less in his groin. He denies other acute changes and is in the middle of a therapy session so my interaction was brief. Patient has no complaint of chest discomfort, dyspnea, orthopnea, palpitations, nausea or vomiting, constipation or diarrhea, other changes in bowel habits, difficulty with urination, rash or itching, or other new complaints. Review of systems is otherwise unremarkable. - Constitutional Vitals: Temp Pulse Resp BP Pulse Ox 97.4 F L 65 16 126/73 94 02/12/18 07:00 02/12/18 07:00 02/12/18 07:00 02/12/18 07:00 02/12/18 07:00 General appearance: Present: A&O X 3, pleasant, no acute distress. Absent: severe distress Exam: Examination: (Except as mentioned above): General: In no apparent distress. Alert and oriented 3. Nondiaphoretic. Head: Atraumatic and normocephalic. Respiratory: No use of accessory muscles. Lungs are clear throughout. Normal airflow. Cardiovascular: Regular rate and rhythm without murmur appreciated. Abdomen: Bowel sounds are normal. No hepatosplenomegaly mass or tenderness appreciated. Obese and therefore difficult to palpate deeply.Patient is examined upright in chair and this also limits exam. Extremities: No cyanosis clubbing or edema. He still has dense left hemiparesis. Skin: Warm and non-diaphoretic with no new lesions noted. Intertriginous areas are not examined, today. Internal Medicine: Result - Labs CBC & Chem 7: 02/09/18 06:30 02/09/18 06:30 - ABG Interpretation ABG results: PT/INR, D-dimer PT 14.2 Seconds (9.4-12.1) H 01/06/18 05:25 - VTE Documentation of Mechanical Device: Graduated compression elastic hosiery Consult Discharge Plan - Plan Referrals: Erika Baca CNP [Primary Care Provider] -
[2018-02-12] MEDS: Fluconazole 100 MG TABLET PO SCH (09:30)
[2018-02-12] MEDS: Nystatin POWDER 30 GM BOTTLE TP SCH ×2 (09:32→22:29)
[2018-02-12] MEDS: Acetaminophen 325 MG TABLET PO PRN ×2 (09:32→22:30)
[2018-02-12] MEDS: Aspirin Enteric Coated 81 MG Tablet PO SCH (09:32)
[2018-02-12] MEDS: Simethicone 80 MG TAB.CHEW PO SCH ×3 (09:32→22:29)
[2018-02-12] MEDS: Bisacodyl 10 MG RECTAL SUPPOSITORY RC SCH (18:08)
[2018-02-13] MEDS: Aspirin Enteric Coated 81 MG Tablet PO SCH (08:38)
[2018-02-13] MEDS: Simethicone 80 MG TAB.CHEW PO SCH ×3 (08:38→21:03)
[2018-02-13] MEDS: Fluconazole 100 MG TABLET PO SCH (08:38)
[2018-02-13] MEDS: hydrALAZINE 25 MG TABLET GTUBE SCH ×3 (08:38→23:32)
[2018-02-13] MEDS: Nystatin POWDER 30 GM BOTTLE TP SCH ×2 (08:43→21:02)
--- NOTE | 2018-02-13 12:34 | Internal Med Progress Note ---
Date of Encounter: 02/13/18 Time of Encounter: 12:31 - Assessment and plan (1) CVA (cerebral vascular accident) Current Visit: Yes Status: Acute Assessment and plan: No known acute neurological deficits noted since last exam. Continued left hemiplegia. Right craniectomy site appears well-healed. Patient to do follow- up with neurosurgery today for evaluation of replacement of craniectomy bone flap. We will await recommendations. We will continue with current plan of care. Qualifiers: CVA mechanism: unspecified Qualified Code(s): I63.9 - Cerebral infarction, unspecified (2) Diabetes type 2, controlled Current Visit: Yes Status: Chronic Assessment and plan: No acute issues. Patient's glucose well controlled with current medication regimen. Qualifiers: Diabetes mellitus assisted insulin use: without assisted use Diabetes mellitus complication status: without complication Qualified Code(s): E11.9 - Type 2 diabetes mellitus without complications (3) HTN (hypertension) Current Visit: Yes Status: Chronic Assessment and plan: Vital signs stable. We will continue with current medications. Qualifiers: Hypertension type: essential hypertension Qualified Code(s): I10 - Essential (primary) hypertension - Time Spent With Patient less than 15 minutes - Subjective Interval history: Patient without c/o discomforts or dyspnea. Patient with left hemiplegia. Patient denies any other discomforts or issues. States that he is doing well with therapy. - Constitutional Vitals: Temp Pulse Resp BP Pulse Ox 97.6 F 58 15 146/73 95 02/13/18 07:00 02/13/18 07:00 02/13/18 07:00 02/13/18 07:00 02/13/18 07:00 General appearance: Present: A&O X 3, pleasant, no acute distress. Absent: severe distress - Head Head exam: Present: atraumatic, normocephalic - Eye Eye exam: Present: PERRL, conjuntiva pink, sclera anicteric Pupils: Present: PERRL - Neck Neck exam general surgery: Present: supple, trachea midline. Absent: lymphadenopathy - Respiratory Respiratory exam: Present: CTAB. Absent: accessory muscle use, rales, rhonchi, wheezes - Cardiovascular Cardiovascular exam: Present: RRR, +S1, +S2. Absent: diastolic murmur, gallop, rubs, systolic murmur - GI/Abdominal GI/Abdominal exam: Present: normal bowel sounds, soft, no peritoneal signs. Absent: distended, tenderness - Extremities Exam Extremities exam: Present: warm, radial pulses palpable and symmetrical. Absent : calf tenderness, cyanotic, pedal edema - Neurological Exam Neurological exam: Present: CN II-XII intact, oriented X3, pronater drift. Absent: facial droop, speech deficit Additional comments: No acute issues. No acute neurological deficits noted on exam. Patient continues with left hemiplegia. Right craniectomy surgical site appears well- healed. - Skin Skin exam: Present: dry, intact Internal Medicine: Result - Labs CBC & Chem 7: 02/09/18 06:30 02/09/18 06:30 - ABG Interpretation ABG results: PT/INR, D-dimer PT 14.2 Seconds (9.4-12.1) H 01/06/18 05:25 - VTE Documentation of Mechanical Device: Graduated compression elastic hosiery Consult Discharge Plan - Plan Referrals: Erika Baca CNP [Primary Care Provider] -
[2018-02-13] MEDS: Bisacodyl 10 MG RECTAL SUPPOSITORY RC SCH (18:26)
[2018-02-14] MEDS: Aspirin Enteric Coated 81 MG Tablet PO SCH (08:38)
[2018-02-14] MEDS: hydrALAZINE 25 MG TABLET GTUBE SCH ×3 (08:38→23:11)
[2018-02-14] MEDS: Nystatin POWDER 30 GM BOTTLE TP SCH ×2 (08:38→23:11)
[2018-02-14] MEDS: Simethicone 80 MG TAB.CHEW PO SCH ×3 (08:38→23:10)
--- NOTE | 2018-02-14 17:07 | Internal Med Progress Note ---
Date of Encounter: 02/14/18 Time of Encounter: 17:05 - Assessment and plan (1) CVA (cerebral vascular accident) Current Visit: Yes Status: Acute Assessment and plan: No known acute neurological deficits noted since last exam. Continued left hemiplegia. Right craniectomy site appears well-healed. Patient to do follow- up with neurosurgery today for evaluation of replacement of craniectomy bone flap. We will await recommendations. We will continue with current plan of care. Qualifiers: CVA mechanism: unspecified Qualified Code(s): I63.9 - Cerebral infarction, unspecified (2) HTN (hypertension) Current Visit: Yes Status: Chronic Assessment and plan: stable, no changes Qualifiers: Hypertension type: essential hypertension Qualified Code(s): I10 - Essential (primary) hypertension - Time Spent With Patient 25 - 35 minutes - Subjective Interval history: no complaints today. Reported that appetite low - Constitutional Vitals: Temp Pulse Resp BP Pulse Ox 97.6 F 59 16 142/77 93 02/14/18 07:00 02/14/18 07:00 02/14/18 07:00 02/14/18 07:00 02/14/18 07:00 General appearance: Present: A&O X 3, pleasant, no acute distress. Absent: severe distress - Head Additional comments: Right sided craniotomy - Eye Eye exam: Present: PERRL, conjuntiva pink, sclera anicteric Pupils: Present: PERRL - Neck Neck exam general surgery: Present: supple, trachea midline. Absent: lymphadenopathy - Respiratory Respiratory exam: Present: CTAB. Absent: accessory muscle use, rales, rhonchi, wheezes - Cardiovascular Cardiovascular exam: Present: RRR, +S1, +S2. Absent: diastolic murmur, gallop, rubs, systolic murmur - GI/Abdominal GI/Abdominal exam: Present: normal bowel sounds, soft, no peritoneal signs. Absent: distended, tenderness - Extremities Exam Extremities exam: Present: pedal edema, warm, radial pulses palpable and symmetrical. Absent: calf tenderness, cyanotic Additional comments: left upper and lower extemity 0/5 - Neurological Exam Neurological exam: Present: alert. Absent: no focal deficits, pronater drift, facial droop, speech deficit Additional comments: left hemiplagia - Skin Skin exam: Present: dry, intact Internal Medicine: Result - Labs CBC & Chem 7: 02/09/18 06:30 02/09/18 06:30 - ABG Interpretation ABG results: PT/INR, D-dimer PT 14.2 Seconds (9.4-12.1) H 01/06/18 05:25 - VTE Documentation of Mechanical Device: Graduated compression elastic hosiery Consult Discharge Plan - Plan Referrals: Erika Baca, SOFTWARE LICENSING SPECIALIST [Primary Care Provider] -
[2018-02-14] MEDS: Bisacodyl 10 MG RECTAL SUPPOSITORY RC SCH (19:03)
[2018-02-14] MEDS: Acetaminophen 325 MG TABLET PO PRN (23:11)
[2018-02-15] MEDS: Aspirin Enteric Coated 81 MG Tablet PO SCH (09:25)
[2018-02-15] MEDS: hydrALAZINE 25 MG TABLET GTUBE SCH ×3 (09:25→23:03)
[2018-02-15] MEDS: Simethicone 80 MG TAB.CHEW PO SCH ×3 (09:25→23:01)
[2018-02-15] MEDS: Acetaminophen 325 MG TABLET PO PRN ×2 (09:25→23:04)
[2018-02-15] MEDS: Nystatin POWDER 30 GM BOTTLE TP SCH ×2 (09:26→23:02)
--- NOTE | 2018-02-15 13:29 | Internal Med Progress Note ---
Date of Encounter: 02/15/18 Time of Encounter: 13:27 - Assessment and plan (1) CVA (cerebral vascular accident) Current Visit: Yes Status: Acute Assessment and plan: No known acute neurological deficits noted since last exam. Continued left hemiplegia. Right craniectomy site appears well-healed. Patient to do follow-up with neurosurgery for evaluation of replacement of craniectomy bone flap. We will await recommendations. We will continue with current plan of care. Qualifiers: CVA mechanism: unspecified Qualified Code(s): I63.9 - Cerebral infarction, unspecified (2) HTN (hypertension) Current Visit: Yes Status: Chronic Assessment and plan: stable, no changes Qualifiers: Hypertension type: essential hypertension Qualified Code(s): I10 - Essential (primary) hypertension (3) Major depression Current Visit: Yes Status: Acute Assessment and plan: currently takes celexa 20 given his poor appetite, will start paxil the anti-histaminic properites of paxil are known to improve appetie and weight loss paxil is seen head to head similar to remron in weight gain paxil mooney tart on 10 with titration to 20 in 7 days () Qualifiers: Major depression recurrence: recurrent Active/Remission status: currently active Major depression episode severity: moderate Qualified Code(s): F33.1 - Major depressive disorder, recurrent, moderate - Time Spent With Patient 25 - 35 minutes - Subjective Interval history: no complaints today. Reported that appetite low reporting depression and appetite still low No active pain, but has left shoulder pain with ROM - Constitutional Vitals: Temp Pulse Resp BP Pulse Ox 97.7 F 79 16 142/68 93 02/15/18 06:55 02/15/18 06:55 02/15/18 06:55 02/15/18 06:55 02/15/18 06:55 General appearance: Present: pleasant, no acute distress. Absent: severe distress - Head Additional comments: right sided crainotomy with skin closure present - Eye Eye exam: Present: PERRL, conjuntiva pink, sclera anicteric Pupils: Present: PERRL - Neck Neck exam general surgery: Present: supple, trachea midline. Absent: lymphadenopathy - Respiratory Respiratory exam: Present: CTAB. Absent: accessory muscle use, rales, rhonchi, wheezes - Cardiovascular Cardiovascular exam: Present: RRR, +S1, +S2. Absent: diastolic murmur, gallop, rubs, systolic murmur - GI/Abdominal GI/Abdominal exam: Present: normal bowel sounds, soft, no peritoneal signs. Absent: distended, tenderness - Extremities Exam Extremities exam: Present: warm, radial pulses palpable and symmetrical. Absent : calf tenderness, cyanotic, pedal edema - Neurological Exam Neurological exam: Absent: strengths equal and symetr throughout, pronater drift , facial droop, speech deficit Additional comments: left side hemiplasia observed - Psychiatric Psychiatric exam: Present: flat affect - Skin Skin exam: Present: dry, intact Internal Medicine: Result - Labs CBC & Chem 7: 02/09/18 06:30 02/09/18 06:30 - ABG Interpretation ABG results: PT/INR, D-dimer PT 14.2 Seconds (9.4-12.1) H 01/06/18 05:25 - VTE Documentation of Mechanical Device: Graduated compression elastic hosiery Consult Discharge Plan - Plan Referrals: Erika Baca OCEANOGRAPHER ASSISTANT [Primary Care Provider] -
[2018-02-16] MEDS: Simethicone 80 MG TAB.CHEW PO SCH ×3 (08:42→21:02)
[2018-02-16] MEDS: Aspirin Enteric Coated 81 MG Tablet PO SCH (08:44)
[2018-02-16] MEDS: hydrALAZINE 25 MG TABLET GTUBE SCH ×3 (08:45→23:53)
--- NOTE | 2018-02-16 10:49 | Internal Med Progress Note ---
Date of Encounter: 02/16/18 Time of Encounter: 10:47 - Assessment and plan (1) CVA (cerebral vascular accident) Current Visit: Yes Status: Acute Assessment and plan: No known acute neurological deficits noted since last exam. Continued left hemiplegia. Right craniectomy site appears well-healed. Patient had follow-up with neurosurgery for evaluation of replacement of craniectomy flap. Patient's was informed by surgery that plans will be made for replacement during the upcoming weeks. For the details to be called in from surgeon's office. We will await recommendations. We will continue with current plan of care. Qualifiers: CVA mechanism: unspecified Qualified Code(s): I63.9 - Cerebral infarction, unspecified (2) Diabetes type 2, controlled Current Visit: Yes Status: Chronic Assessment and plan: No acute issues. Patient's glucose well controlled with current medication regimen. Qualifiers: Diabetes mellitus long term care pharmacist insulin use: without long term care pharmacist use Diabetes mellitus complication status: without complication Qualified Code(s): E11.9 - Type 2 diabetes mellitus without complications (3) HTN (hypertension) Current Visit: Yes Status: Chronic Assessment and plan: Vital signs stable. We will continue with current medications. Qualifiers: Hypertension type: essential hypertension Qualified Code(s): I10 - Essential (primary) hypertension - Time Spent With Patient less than 15 minutes - Subjective Interval history: Patient without c/o discomforts or dyspnea. Patient with left hemiplegia. Patient denies any other discomforts or issues. States that he is doing well with therapy. Patient had follow-up with neurosurgery to evaluate replacement of bone flap. states that the surgeon stated he wanted to make arrangements for the procedure upcoming weeks. - Constitutional Vitals: Temp Pulse Resp BP Pulse Ox 98.0 F 78 16 161/81 95 02/15/18 18:51 02/15/18 18:51 02/15/18 18:51 02/15/18 18:51 02/15/18 18:51 General appearance: Present: pleasant, no acute distress. Absent: severe distress - Head Head exam: Present: atraumatic, normocephalic - Eye Eye exam: Present: PERRL, conjuntiva pink, sclera anicteric Pupils: Present: PERRL - Neck Neck exam general surgery: Present: supple, trachea midline. Absent: lymphadenopathy - Respiratory Respiratory exam: Present: CTAB. Absent: accessory muscle use, rales, rhonchi, wheezes - Cardiovascular Cardiovascular exam: Present: RRR, +S1, +S2. Absent: diastolic murmur, gallop, rubs, systolic murmur - GI/Abdominal GI/Abdominal exam: Present: normal bowel sounds, soft, no peritoneal signs. Absent: distended, tenderness - Extremities Exam Extremities exam: Present: warm, radial pulses palpable and symmetrical. Absent : calf tenderness, cyanotic, pedal edema - Neurological Exam Neurological exam: Present: CN II-XII intact, oriented X3. Absent: pronater drift, facial droop, speech deficit Additional comments: Left hemiplegia. Right craniotomy site appears well-healed - Skin Skin exam: Present: dry, intact Internal Medicine: Result - Labs CBC & Chem 7: 02/09/18 06:30 02/09/18 06:30 - ABG Interpretation ABG results: PT/INR, D-dimer PT 14.2 Seconds (9.4-12.1) H 01/06/18 05:25 - VTE Documentation of Mechanical Device: Graduated compression elastic hosiery Consult Discharge Plan - Plan Referrals: Erika Baca FERTILIZER LOADER [Primary Care Provider] -
[2018-02-16] MEDS: Nystatin POWDER 30 GM BOTTLE TP SCH ×2 (11:15→21:08)
--- NOTE | 2018-02-16 15:27 | Physical Med Progress Note ---
Date of Encounter: 02/16/18 Time of Encounter: 14:35 Assessment and Plan (1) CVA (cerebral vascular accident) Current Visit: Yes Status: Acute Assessment and plan: Slow but steady progress in therapy. Will hold senokot/ colace. Continue rehab. Qualifiers: CVA mechanism: unspecified Qualified Code(s): I63.9 - Cerebral infarction, unspecified (2) Hemorrhagic stroke Current Visit: No Status: Inactive Physical Medicine-PN: Subj Interval history: No c/o. Staff states he's having loose bowels. here for family ed. Wants to sleep alot. Fatigue still a problem. Started on Celexa -94 days ago. If he still has somnolence this week, we may need to start a stimulant. - Constitutional Vitals: Vital Signs Temp Pulse Resp BP Pulse Ox 02/16/18 11:30 97.6 F 71 15 137/87 93 02/15/18 18:51 98.0 F 78 16 161/81 95 Intake and Output 02/15/18 02/16/18 02/16/18 23:59 07:59 15:59 Other: Meal Breakfast Percent of Meal Consumed 70% # Urine Diapers 1 1 1 Weight 91.314 kg Patient Weight 02/16/18 23:59 Weight 91.314 kg General appearance: average body habitus, no acute distress - Head Additional comments: Skull flap out right head. Helmet on. - Extremities Exam Additional comments: LUE flaccd to shoulder. LLe still significantly weak. Balance poor. Doing scoot pivot transfers. He has left hip rotation with transfers. Physical Medicine-PN: Obj Data - Labs CBC & Chem 7: 02/09/18 06:30 02/09/18 06:30 - ABG Interpretation ABG results: PT/INR, D-dimer PT 14.2 Seconds (9.4-12.1) H 01/06/18 05:25 - VTE Documentation of Mechanical Device: Graduated compression elastic hosiery Consult Discharge Plan - Plan Referrals: Erika Baca CNP [Primary Care Provider] -
[2018-02-17] MEDS: hydrALAZINE 25 MG TABLET GTUBE SCH ×2 (08:49→16:40)
[2018-02-17] MEDS: Aspirin Enteric Coated 81 MG Tablet PO SCH (08:49)
[2018-02-17] MEDS: Simethicone 80 MG TAB.CHEW PO SCH ×3 (08:52→21:14)
[2018-02-17] MEDS: Nystatin POWDER 30 GM BOTTLE TP SCH ×3 (11:21→21:18)
--- NOTE | 2018-02-17 13:17 | Internal Med Progress Note ---
Date of Encounter: 02/17/18 Time of Encounter: 13:15 - Assessment and plan (1) CVA (cerebral vascular accident) Current Visit: Yes Status: Acute Assessment and plan: No new neurological deficits. Left-sided hemiplegia. Continues to participate with PT\OT\ST. Will continue to monitor. Qualifiers: CVA mechanism: unspecified Qualified Code(s): I63.9 - Cerebral infarction, unspecified (2) Diabetes type 2, controlled Current Visit: Yes Status: Chronic Assessment and plan: Controlled with current medications. Continue to monitor fingerstick blood sugars and will adjust medications as necessary. Qualifiers: Diabetes mellitus residential insulin use: without long lines operator use Diabetes mellitus complication status: without complication Qualified Code(s): E11.9 - Type 2 diabetes mellitus without complications (3) HTN (hypertension) Current Visit: Yes Status: Chronic Assessment and plan: Stable with current medications. Monitor blood pressure Qualifiers: Hypertension type: essential hypertension Qualified Code(s): I10 - Essential (primary) hypertension - Time Spent With Patient less than 15 minutes - Subjective Interval history: Patient currently up in wheelchair participating with therapy. denies pain. no new neuro deficit. bowels moving daily with bowel program. has also been incontinent of bowel and bladder, stool softeners on hold. will set up a toilet in advance of need with nursing staff. maintaining appetite and hydration. continues to be drowsy. - Constitutional Vitals: Temp Pulse Resp BP Pulse Ox 98.0 F 62 16 116/70 92 02/17/18 07:08 02/17/18 07:08 02/16/18 19:47 02/17/18 07:08 02/17/18 07:08 General appearance: Present: A&O X 3, pleasant, no acute distress. Absent: severe distress Exam: flat affect. - Head Head exam: Present: atraumatic, normocephalic - Eye Eye exam: Present: PERRL, conjuntiva pink, sclera anicteric Pupils: Present: PERRL - Neck Neck exam general surgery: Present: supple, trachea midline. Absent: lymphadenopathy - Respiratory Respiratory exam: Present: CTAB. Absent: accessory muscle use, rales, rhonchi, wheezes - Cardiovascular Cardiovascular exam: Present: RRR, +S1, +S2. Absent: diastolic murmur, gallop, rubs, systolic murmur - GI/Abdominal GI/Abdominal exam: Present: normal bowel sounds, soft, no peritoneal signs. Absent: distended, tenderness - Extremities Exam Extremities exam: Present: warm, radial pulses palpable and symmetrical. Absent : calf tenderness, cyanotic, pedal edema Additional comments: left hemiplegia. - Neurological Exam Neurological exam: Present: CN II-XII intact, oriented X3, no focal deficits. Absent: pronater drift, facial droop, speech deficit - Skin Skin exam: Present: dry, intact Internal Medicine: Result - Labs CBC & Chem 7: 02/09/18 06:30 02/09/18 06:30 - ABG Interpretation ABG results: PT/INR, D-dimer PT 14.2 Seconds (9.4-12.1) H 01/06/18 05:25 - VTE Documentation of Mechanical Device: Graduated compression elastic hosiery Consult Discharge Plan - Plan Referrals: Erika Baca REFINING ENGINEER [Primary Care Provider] -
[2018-02-18] MEDS: hydrALAZINE 25 MG TABLET GTUBE SCH ×3 (00:24→16:08)
[2018-02-18] MEDS: Aspirin Enteric Coated 81 MG Tablet PO SCH (10:26)
[2018-02-18] MEDS: Simethicone 80 MG TAB.CHEW PO SCH ×2 (10:26→16:08)
[2018-02-18] MEDS: Nystatin POWDER 30 GM BOTTLE TP SCH ×2 (10:28→16:40)
[2018-02-18 11:09] LABS: Basophils # 0.1 K/mcL (0.0-0.2); Basophils % 0.5 %; Eosinophils # 0.3 K/mcL (0.0-0.6); Eosinophils % 2.4 %; Hematocrit 37.7 % (37.5-50.1); Hemoglobin 12.3 g/dL (12.9-16.9); Immature Granulocytes % 0.3 % (0-4); Lymphocytes # 1.7 K/mcL (0.6-4.6); Lymphocytes % 14.8 %; Mean Corpuscular HGB Conc 32.6 g/dL (31.6-35.5); Mean Corpuscular Hemoglobin 29.4 pg (28.0-33.3); Mean Platelet Volume 9.6 fL (9.4-12.4); Monocytes # 0.9 K/mcL (0.0-1.3); Monocytes % 7.8 %; Neutrophils # 8.4 K/mcL (1.6-8.9); Platelet Count 251 K/mcL (140-400); Red Blood Count 4.19 M/mcL (4.19-5.50); Red Cell Distribution Width 14.8 % (11.5-14.5); Segmented Neutrophils % 74.2 %
[2018-02-18 11:45] LABS: Alanine Aminotransferase 20 Units/L (7-52); Albumin 4.1 g/dL (3.5-5.7); Alkaline Phosphatase 81 Units/L (34-104); Amylase 102 Units/L (29-103); Aspartate Amino Transferase 18 Units/L (13-39); BUN/Creatinine Ratio 12 (6-26); Bilirubin,Total 0.5 mg/dL (0.3-1.0); Blood Urea Nitrogen 14 mg/dL (8-23); Calcium 10.4 mg/dL (8.6-10.3); Carbon Dioxide 26 mEq/L (23-29); Chloride 101 mEq/L (98-107); Globulin 4.3 g/dL (2.4-3.5); Glucose 160 mg/dL (70-105); Osmolality,Calculated 288 (280-300); Potassium 3.5 mEq/L (3.5-5.1); Sodium 137 mEq/L (136-145); Total Protein 8.4 g/dL (6.4-8.9); eGFR For African Americans > 60 (> 60); eGFR For Non-African Americans > 60 (> 60)
--- NOTE | 2018-02-18 13:54 | Internal Med Progress Note ---
Date of Encounter: 02/18/18 Time of Encounter: 13:52 - Assessment and plan (1) CVA (cerebral vascular accident) Current Visit: Yes Status: Acute Assessment and plan: No new neurological deficits. Left-sided hemiplegia. Continues to participate with PT\OT\ST. Will continue to monitor. Therapy to set up more family training. Qualifiers: CVA mechanism: unspecified Qualified Code(s): I63.9 - Cerebral infarction, unspecified (2) Diabetes type 2, controlled Current Visit: Yes Status: Chronic Assessment and plan: Controlled with current medications. Continue to monitor fingerstick blood sugars and will adjust medications as necessary. Qualifiers: Diabetes mellitus senior care insulin use: without delivery merchandiser use Diabetes mellitus complication status: without complication Qualified Code(s): E11.9 - Type 2 diabetes mellitus without complications (3) HTN (hypertension) Current Visit: Yes Status: Chronic Assessment and plan: Stable with current medications. Monitor blood pressure Qualifiers: Hypertension type: essential hypertension Qualified Code(s): I10 - Essential (primary) hypertension - Time Spent With Patient less than 15 minutes - Subjective Interval history: Patient currently up in wheelchair participating with therapy. denies pain. no new neuro deficit. bowels moving daily with bowel program. has also been incontinent of bowel and bladder, stool softeners on hold. will set up a toilet in advance of need with nursing staff. maintaining appetite and hydration. Therapy reports increased tone in left hip. also reporting patient having trouble with carryover on safety techniques. - Constitutional Vitals: Temp Pulse Resp BP Pulse Ox 98.1 F 65 14 136/75 93 02/18/18 06:55 02/18/18 06:55 02/18/18 06:55 02/18/18 06:55 02/18/18 06:55 General appearance: Present: A&O X 3, pleasant, no acute distress. Absent: severe distress - Head Head exam: Present: atraumatic, normocephalic - Eye Eye exam: Present: PERRL, conjuntiva pink, sclera anicteric Pupils: Present: PERRL - Neck Neck exam general surgery: Present: supple, trachea midline. Absent: lymphadenopathy - Respiratory Respiratory exam: Present: CTAB. Absent: accessory muscle use, rales, rhonchi, wheezes - Cardiovascular Cardiovascular exam: Present: RRR, +S1, +S2. Absent: diastolic murmur, gallop, rubs, systolic murmur - GI/Abdominal GI/Abdominal exam: Present: normal bowel sounds, soft, no peritoneal signs. Absent: distended, tenderness - Extremities Exam Extremities exam: Present: warm, radial pulses palpable and symmetrical. Absent : calf tenderness, cyanotic, pedal edema Additional comments: left hemiplegia - Neurological Exam Neurological exam: Present: CN II-XII intact, oriented X3, no focal deficits. Absent: pronater drift, facial droop, speech deficit - Skin Skin exam: Present: dry, intact Internal Medicine: Result - Labs CBC & Chem 7: 02/18/18 11:03 02/18/18 11:03 Labs: Short CBC 02/18/18 Range/Units 11:03 WBC 11.3 H (4.3-11.1) K/mcL Hgb 12.3 L (12.9-16.9) g/dL Hct 37.7 (37.5-50.1) % Plt Count 251 (140-400) K/mcL Neutrophils # 8.4 (1.6-8.9) K/mcL BMP 02/18/18 11:03 Sodium 137 Potassium 3.5 Chloride 101 Carbon Dioxide 26 BUN 14 Creatinine 1.20 Glucose 160 H Calcium 10.4 H Liver Function 02/18/18 Range/Units 11:03 Total Bilirubin 0.5 (0.3-1.0) mg/dL AST 18 (13-39) Units/L ALT 20 (7-52) Units/L Alkaline Phosphatase 81 (34-104) Units/L Albumin 4.1 (3.5-5.7) g/dL - ABG Interpretation ABG results: PT/INR, D-dimer PT 14.2 Seconds (9.4-12.1) H 01/06/18 05:25 - VTE Documentation of Mechanical Device: Graduated compression elastic hosiery Consult Discharge Plan - Plan Referrals: Erika Baca CNP [Primary Care Provider] -
[2018-02-19] MEDS: Acetaminophen 325 MG TABLET PO PRN (00:32)
[2018-02-19] MEDS: Simethicone 80 MG TAB.CHEW PO SCH ×4 (00:32→22:07)
[2018-02-19] MEDS: hydrALAZINE 25 MG TABLET GTUBE SCH ×4 (00:33→23:42)
[2018-02-19] MEDS: Nystatin POWDER 30 GM BOTTLE TP SCH ×4 (00:34→22:07)
[2018-02-19] MEDS: Aspirin Enteric Coated 81 MG Tablet PO SCH (08:49)
--- NOTE | 2018-02-19 16:51 | Internal Med Progress Note ---
Date of Encounter: 02/19/18 Time of Encounter: 16:49 - Assessment and plan (1) CVA (cerebral vascular accident) Current Visit: Yes Status: Acute Assessment and plan: No known acute neurological deficits noted since last exam. Continued left hemiplegia. Right craniectomy site appears well-healed. Patient had follow-up with neurosurgery for evaluation of replacement of craniectomy flap with plans to replace his bone flap in the upcoming weeks. We will continue with current therapy. Patient has been progressing well with physical therapy. We will continue with current plan of care. Qualifiers: CVA mechanism: unspecified Qualified Code(s): I63.9 - Cerebral infarction, unspecified (2) Diabetes type 2, controlled Current Visit: Yes Status: Chronic Assessment and plan: No acute issues. Patient's glucose well controlled with current medication regimen. Qualifiers: Diabetes mellitus dedicated intermodal truck driver insulin use: without dedicated intermodal truck driver use Diabetes mellitus complication status: without complication Qualified Code(s): E11.9 - Type 2 diabetes mellitus without complications (3) HTN (hypertension) Current Visit: Yes Status: Chronic Assessment and plan: Vital signs stable. We will continue with current medications. Qualifiers: Hypertension type: essential hypertension Qualified Code(s): I10 - Essential (primary) hypertension - Time Spent With Patient less than 15 minutes - Subjective Interval history: Patient without c/o discomforts or dyspnea. Patient with left hemiplegia. Patient denies any other discomforts or issues. States that he is doing well with therapy. Patient had follow-up with neurosurgery to evaluate replacement of bone flap. states that the surgeon stated he wanted to make arrangements for the procedure upcoming weeks. - Constitutional Vitals: Temp Pulse Resp BP Pulse Ox 97.8 F 67 16 146/79 96 02/19/18 08:00 02/19/18 08:00 02/19/18 08:00 02/19/18 08:00 02/19/18 08:00 General appearance: Present: A&O X 2, pleasant, no acute distress. Absent: severe distress - Head Head exam: Present: atraumatic, normocephalic - Eye Eye exam: Present: PERRL, conjuntiva pink, sclera anicteric Pupils: Present: PERRL - Neck Neck exam general surgery: Present: supple, trachea midline. Absent: lymphadenopathy - Respiratory Respiratory exam: Present: CTAB. Absent: accessory muscle use, rales, rhonchi, wheezes - Cardiovascular Cardiovascular exam: Present: RRR, +S1, +S2. Absent: diastolic murmur, gallop, rubs, systolic murmur - GI/Abdominal GI/Abdominal exam: Present: normal bowel sounds, soft, no peritoneal signs. Absent: distended, tenderness - Extremities Exam Extremities exam: Present: warm, radial pulses palpable and symmetrical. Absent : calf tenderness, cyanotic, pedal edema - Neurological Exam Neurological exam: Present: CN II-XII intact. Absent: pronater drift, facial droop, speech deficit Additional comments: Patient continues to have a left hemiplegia. Craniectomy surgical site appears to be well-healed. - Skin Skin exam: Present: dry, intact Internal Medicine: Result - Labs CBC & Chem 7: 02/18/18 11:03 02/18/18 11:03 - ABG Interpretation ABG results: PT/INR, D-dimer PT 14.2 Seconds (9.4-12.1) H 01/06/18 05:25 - VTE Documentation of Mechanical Device: Graduated compression elastic hosiery Consult Discharge Plan - Plan Referrals: Erika Baca DESIGN PAINTER [Primary Care Provider] -
[2018-02-20] MEDS: hydrALAZINE 25 MG TABLET GTUBE SCH ×3 (11:04→23:35)
[2018-02-20] MEDS: Aspirin Enteric Coated 81 MG Tablet PO SCH (11:04)
[2018-02-20] MEDS: Nystatin POWDER 30 GM BOTTLE TP SCH ×3 (11:04→23:35)
[2018-02-20] MEDS: Simethicone 80 MG TAB.CHEW PO SCH ×3 (11:04→23:35)
--- NOTE | 2018-02-20 12:50 | Internal Med Progress Note ---
Date of Encounter: 02/20/18 Time of Encounter: 12:48 - Assessment and plan (1) Stroke determined by clinical assessment Current Visit: No Status: Acute Assessment and plan: Current discharge date planned is 03/06/2018 but this may be delayed after his return from neurosurgery. He continues to progress well with therapies. (2) HTN (hypertension) Current Visit: Yes Status: Chronic Assessment and plan: Clinically stable. We will continue home regimen and follow. Qualifiers: Hypertension type: essential hypertension Qualified Code(s): I10 - Essential (primary) hypertension (3) Hypothyroid Current Visit: No Status: Chronic Assessment and plan: Clinically stable. Qualifiers: Hypothyroidism type: unspecified Qualified Code(s): E03.9 - Hypothyroidism , unspecified (4) Diabetes type 2, controlled Current Visit: Yes Status: Chronic Assessment and plan: Clinically acceptable. Qualifiers: Diabetes mellitus manager long term care insulin use: without manager long term care use Diabetes mellitus complication status: without complication Qualified Code(s): E11.9 - Type 2 diabetes mellitus without complications (5) Gallbladder anomaly Current Visit: Yes Status: Acute Assessment and plan: Asymptomatic. Laboratory studies show that this is apparently benign. We will need to continue to follow, given his diminished appetite. He shows no sign of acute cholecystitis. (6) Monilial intertrigo Current Visit: Yes Status: Acute Assessment and plan: Stable and currently on combination therapy. We might need to consider weekly Diflucan if this persists. Another consideration might be bacterial overgrowth. - Time Spent With Patient less than 15 minutes - Subjective Interval history: Patient has no new complaints. We reviewed plan schedule. On 03/04/2018, he is to go to [facility] and have his skull reimplanted. After that, he will come back here for a couple of days of therapy and home discharge planning. I discussed home-going prescriptions and care plan briefly with the and agreed that the social services manager will be back next and help make a list of prescriptions needed for that planning. Patient has no complaint of chest discomfort, dyspnea, orthopnea, palpitations, nausea or vomiting, constipation or diarrhea, other changes in bowel habits, difficulty with urination, rash or itching, or other new complaints. Review of systems is otherwise unremarkable. - Constitutional Vitals: Temp Pulse Resp BP Pulse Ox 97.2 F L 65 16 157/85 94 02/20/18 06:00 02/20/18 06:00 02/20/18 06:00 02/20/18 06:00 02/20/18 06:00 General appearance: Present: pleasant, no acute distress Exam: Examination: (Except as mentioned above): General: In no apparent distress. Alert and oriented 3. Nondiaphoretic. Head: Atraumatic and normocephalic. Respiratory: No use of accessory muscles. Lungs are clear throughout. Normal airflow. Cardiovascular: Regular rate and rhythm without murmur appreciated. Abdomen: Bowel sounds are normal. No hepatosplenomegaly mass or tenderness PEG tube site remains well-healed. appreciated. Obese and therefore difficult to palpate deeply. Extremities: No cyanosis clubbing or edema. Skin: Warm and non-diaphoretic with no new lesions noted. Internal Medicine: Result - Labs CBC & Chem 7: 02/18/18 11:03 02/18/18 11:03 - ABG Interpretation ABG results: PT/INR, D-dimer PT 14.2 Seconds (9.4-12.1) H 01/06/18 05:25 - VTE Documentation of Mechanical Device: Graduated compression elastic hosiery Consult Discharge Plan - Plan Referrals: Erika Baca DRIVER'S LICENSE REVIEWING OFFICER [Primary Care Provider] -
[2018-02-21] MEDS: Simethicone 80 MG TAB.CHEW PO SCH ×3 (10:35→20:20)
[2018-02-21] MEDS: hydrALAZINE 25 MG TABLET GTUBE SCH ×2 (10:36→18:25)
[2018-02-21] MEDS: Aspirin Enteric Coated 81 MG Tablet PO SCH (10:36)
[2018-02-21] MEDS: Nystatin POWDER 30 GM BOTTLE TP SCH ×3 (10:36→20:40)
--- NOTE | 2018-02-21 16:30 | Internal Med Progress Note ---
Date of Encounter: 02/21/18 Time of Encounter: 16:30 - Assessment and plan (1) Stroke determined by clinical assessment Current Visit: No Status: Acute Assessment and plan: As noted previously, current discharge date planned is 03/06/2018 but this may be delayed after his return from neurosurgery. He continues to progress well with therapies. (2) HTN (hypertension) Current Visit: Yes Status: Chronic Assessment and plan: Clinically stable. We will continue home regimen and follow. Qualifiers: Hypertension type: essential hypertension Qualified Code(s): I10 - Essential (primary) hypertension (3) Hypothyroid Current Visit: No Status: Chronic Assessment and plan: Clinically stable. Qualifiers: Hypothyroidism type: unspecified Qualified Code(s): E03.9 - Hypothyroidism , unspecified (4) Diabetes type 2, controlled Current Visit: Yes Status: Chronic Assessment and plan: Clinically stable. We will continue sliding scale coverage. 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 Laboratory studies show that this is apparently benign. We will need to continue to follow, given his diminished appetite. He shows no sign of acute cholecystitis. (6) Monilial intertrigo Current Visit: Yes Status: Acute Assessment and plan: Stable. We will continue as planned. - Time Spent With Patient less than 15 minutes - Subjective Interval history: Patient has no new complaints. He admits to left shoulder pain but states that it is improved. He denies other problems or complications. Patient has no complaint of chest discomfort, dyspnea, orthopnea, palpitations, nausea or vomiting, constipation or diarrhea, other changes in bowel habits, difficulty with urination, rash or itching, or other new complaints. Review of systems is otherwise unremarkable. - Constitutional Vitals: Temp Pulse Resp BP Pulse Ox 98.3 F 66 18 144/87 94 02/21/18 07:00 02/21/18 07:00 02/21/18 07:00 02/21/18 07:00 02/21/18 07:00 General appearance: Present: pleasant, no acute distress Exam: Examination: (Except as mentioned above): General: In no apparent distress. Alert and oriented 3. Nondiaphoretic. Head: Atraumatic and normocephalic. Respiratory: No use of accessory muscles. Lungs are clear throughout. Normal airflow. Cardiovascular: Regular rate and rhythm without murmur appreciated. Abdomen: Bowel sounds are normal. No hepatosplenomegaly mass or tenderness appreciated. Obese and therefore difficult to palpate deeply. Extremities: No cyanosis clubbing or edema. Skin: Warm and non-diaphoretic with no new lesions noted. He still has left hemiparesis that is dense. Internal Medicine: Result - Labs CBC & Chem 7: 02/18/18 11:03 02/18/18 11:03 - ABG Interpretation ABG results: PT/INR, D-dimer PT 14.2 Seconds (9.4-12.1) H 01/06/18 05:25 - VTE Documentation of Mechanical Device: Graduated compression elastic hosiery Consult Discharge Plan - Plan Referrals: Erika Baca ENGINE HOSTLER [Primary Care Provider] -
[2018-02-22] MEDS: hydrALAZINE 25 MG TABLET GTUBE SCH ×3 (00:20→16:28)
--- NOTE | 2018-02-22 05:41 | Internal Med Progress Note ---
Date of Encounter: 02/22/18 Time of Encounter: 05:41 - Assessment and plan (1) Stroke determined by clinical assessment Current Visit: No Status: Acute Assessment and plan: Anticipated discharge on 03/06/2018. He continues to progress well with therapies. (2) HTN (hypertension) Current Visit: Yes Status: Chronic Assessment and plan: Clinically stable. We will continue home regimen and follow. Qualifiers: Hypertension type: essential hypertension Qualified Code(s): I10 - Essential (primary) hypertension (3) Hypothyroid Current Visit: No Status: Chronic Assessment and plan: Clinically stable. Qualifiers: Hypothyroidism type: unspecified Qualified Code(s): E03.9 - Hypothyroidism , unspecified (4) Diabetes type 2, controlled Current Visit: Yes Status: Chronic Assessment and plan: Clinically stable. We will continue sliding scale coverage. Qualifiers: Diabetes mellitus watermaster insulin use: without watermaster use Diabetes mellitus complication status: without complication Qualified Code(s): E11.9 - Type 2 diabetes mellitus without complications (5) Gallbladder anomaly Current Visit: Yes Status: Acute Assessment and plan: Clinically stable. We will continue home regimen and follow.. (6) Monilial intertrigo Current Visit: Yes Status: Acute Assessment and plan: Stable. We will continue as planned. - Time Spent With Patient less than 15 minutes - Subjective Interval history: Patient has no new complaints. He has been moving his bowels well but is still dealing with incontinence. Patient has no complaint of chest discomfort, dyspnea, orthopnea, palpitations, nausea or vomiting, constipation or diarrhea, other changes in bowel habits, difficulty with urination, rash or itching, or other new complaints. Review of systems is otherwise unremarkable. - Constitutional Vitals: Temp Pulse Resp BP Pulse Ox 98.5 F 82 16 144/79 95 02/21/18 19:00 02/21/18 19:00 02/21/18 19:00 02/21/18 19:00 02/21/18 19:00 General appearance: Present: pleasant, no acute distress Exam: Examination: (Except as mentioned above): General: In no apparent distress. Alert and oriented 3. Nondiaphoretic. Head: Atraumatic and normocephalic. Respiratory: No use of accessory muscles. Lungs are clear throughout. Normal airflow. Cardiovascular: Regular rate and rhythm without murmur appreciated. Abdomen: Bowel sounds are normal. No hepatosplenomegaly mass or tenderness appreciated. Obese and therefore difficult to palpate deeply. Extremities: No cyanosis clubbing or edema. Skin: Warm and non-diaphoretic with no new lesions noted. Still with dense left hemiparesis. Internal Medicine: Result - Labs CBC & Chem 7: 02/18/18 11:03 02/18/18 11:03 - ABG Interpretation ABG results: PT/INR, D-dimer PT 14.2 Seconds (9.4-12.1) H 01/06/18 05:25 - VTE Documentation of Mechanical Device: Graduated compression elastic hosiery Consult Discharge Plan - Plan Referrals: Keven,Erika Stanton REGULATORY COMPLIANCE SPECIALIST [Primary Care Provider] -
[2018-02-22] MEDS: Simethicone 80 MG TAB.CHEW PO SCH ×3 (10:12→21:11)
[2018-02-22] MEDS: Nystatin POWDER 30 GM BOTTLE TP SCH ×3 (10:12→21:12)
[2018-02-22] MEDS: Aspirin Enteric Coated 81 MG Tablet PO SCH (10:12)
[2018-02-23] MEDS: hydrALAZINE 25 MG TABLET GTUBE SCH ×4 (00:25→23:28)
[2018-02-23 07:05] LABS: Basophils # 0.1 K/mcL (0.0-0.2); Basophils % 0.5 %; Eosinophils # 0.5 K/mcL (0.0-0.6); Eosinophils % 4.4 %; Hematocrit 33.9 % (37.5-50.1); Hemoglobin 11.2 g/dL (12.9-16.9); Immature Granulocytes % 0.4 % (0-4); Lymphocytes # 1.7 K/mcL (0.6-4.6); Lymphocytes % 15.6 %; Mean Corpuscular Hemoglobin 29.2 pg (28.0-33.3); Mean Corpuscular Volume 88.3 fL (83.0-100.0); Mean Platelet Volume 10.2 fL (9.4-12.4); Monocytes % 8.9 %; Neutrophils # 7.7 K/mcL (1.6-8.9); Platelet Count 221 K/mcL (140-400); Red Blood Count 3.84 M/mcL (4.19-5.50); Red Cell Distribution Width 14.7 % (11.5-14.5); Segmented Neutrophils % 70.2 %
[2018-02-23 07:21] LABS: BUN/Creatinine Ratio 13 (6-26); Blood Urea Nitrogen 12 mg/dL (8-23); Calcium 9.8 mg/dL (8.6-10.3); Carbon Dioxide 26 mEq/L (23-29); Chloride 101 mEq/L (98-107); Glucose 118 mg/dL (70-105); Osmolality,Calculated 283 (280-300); Potassium 3.8 mEq/L (3.5-5.1); Sodium 136 mEq/L (136-145); eGFR For African Americans > 60 (> 60); eGFR For Non-African Americans > 60 (> 60)
[2018-02-23] MEDS: Simethicone 80 MG TAB.CHEW PO SCH ×3 (09:09→18:03)
[2018-02-23] MEDS: Nystatin POWDER 30 GM BOTTLE TP SCH ×3 (09:09→22:32)
[2018-02-23] MEDS: Aspirin Enteric Coated 81 MG Tablet PO SCH (09:10)
--- NOTE | 2018-02-23 10:32 | Internal Med Progress Note ---
Date of Encounter: 02/23/18 Time of Encounter: 10:30 - Assessment and plan (1) CVA (cerebral vascular accident) Current Visit: Yes Status: Acute Qualifiers: CVA mechanism: unspecified Qualified Code(s): I63.9 - Cerebral infarction, unspecified (2) Diabetes type 2, controlled Current Visit: Yes Status: Chronic Qualifiers: Diabetes mellitus senior care insulin use: without senior care use Diabetes mellitus complication status: without complication Qualified Code(s): E11.9 - Type 2 diabetes mellitus without complications (3) HTN (hypertension) Current Visit: Yes Status: Chronic Qualifiers: Hypertension type: essential hypertension Qualified Code(s): I10 - Essential (primary) hypertension - Subjective Interval history: Patient currently up in wheelchair participating with therapy. brother participating in family training with transfers. states slight pain to left shoulder. no new neuro deficit. bowels moving daily with bowel program. stool softeners on hold, continues to have soft stool but not loose.. will set up a toilet in advance of need with nursing staff. maintaining appetite and hydration. - Constitutional Vitals: Temp Pulse Resp BP Pulse Ox 97.9 F 66 16 167/84 95 02/23/18 07:09 02/23/18 07:09 02/23/18 07:09 02/23/18 07:09 02/23/18 07:09 General appearance: Present: A&O X 3, pleasant, no acute distress, answers questions appropriately Exam: flat affect - Head Head exam: Present: atraumatic, normocephalic - Eye Eye exam: Present: PERRL, conjuntiva pink, sclera anicteric Pupils: Present: PERRL - Neck Neck exam general surgery: Present: supple, trachea midline. Absent: lymphadenopathy - Respiratory Respiratory exam: Present: CTAB. Absent: accessory muscle use, rales, rhonchi, wheezes - Cardiovascular Cardiovascular exam: Present: RRR, +S1, +S2. Absent: diastolic murmur, gallop, rubs, systolic murmur - GI/Abdominal GI/Abdominal exam: Present: normal bowel sounds, soft, no peritoneal signs. Absent: distended, tenderness - Extremities Exam Extremities exam: Present: warm, radial pulses palpable and symmetrical. Absent : calf tenderness, cyanotic, pedal edema Additional comments: left hemiplegia - Neurological Exam Neurological exam: Present: CN II-XII intact, oriented X3, no focal deficits. Absent: pronater drift, facial droop, speech deficit - Skin Skin exam: Present: dry, intact Internal Medicine: Result - Labs CBC & Chem 7: 02/23/18 06:42 02/23/18 06:42 Labs: Short CBC 02/23/18 Range/Units 06:42 WBC 10.9 (4.3-11.1) K/mcL Hgb 11.2 L (12.9-16.9) g/dL Hct 33.9 L (37.5-50.1) % Plt Count 221 (140-400) K/mcL Neutrophils # 7.7 (1.6-8.9) K/mcL BMP 02/23/18 06:42 Sodium 136 Potassium 3.8 Chloride 101 Carbon Dioxide 26 BUN 12 Creatinine 0.96 Glucose 118 H Calcium 9.8 - ABG Interpretation ABG results: PT/INR, D-dimer PT 14.2 Seconds (9.4-12.1) H 01/06/18 05:25 - VTE Documentation of Mechanical Device: Graduated compression elastic hosiery Consult Discharge Plan - Plan Referrals: Erika Baca, KNITTED GOODS SHAPER [Primary Care Provider] -
--- NOTE | 2018-02-23 18:42 | Physical Med Progress Note ---
Date of Encounter: 02/23/18 Time of Encounter: 18:15 Assessment and Plan (1) CVA (cerebral vascular accident) Current Visit: Yes Status: Acute Assessment and plan: Slow steady progress. Continue rehab. Loose frequent BMs. Not on any meds. Qualifiers: CVA mechanism: unspecified Qualified Code(s): I63.9 - Cerebral infarction, unspecified (2) Hemorrhagic stroke Current Visit: No Status: Inactive Physical Medicine-PN: Subj Interval history: Looks comfortable. - Constitutional Vitals: Vital Signs Temp Pulse Resp BP Pulse Ox 02/23/18 17:57 83 154/84 02/23/18 07:09 97.9 F 66 16 167/84 95 02/22/18 19:00 97.8 F 80 18 149/81 97 Intake and Output 02/23/18 02/23/18 02/23/18 07:59 15:59 23:59 Intake Total 660 / 660 110 / 110 Balance 660 / 660 110 / 110 Intake: Oral 660 / 660 110 / 110 Other: Meal Lunch Dinner Percent of Meal Consumed 65% 55% Stool Size Copious Stool Color Brown Green # Urine Diapers 1 # Bowel Movements 1 Weight 91.314 kg Patient Weight 02/23/18 23:59 Weight 91.314 kg - Head Additional comments: Right skull flap deficient. - Neck Neck exam: Present: full ROM - Respiratory Respiratory exam: Present: CTAB - Cardiovascular Cardiovascular exam: Present: RRR - GI/Abdominal GI/Abdominal exam: Present: normal bowel sounds, soft - Extremities Exam Extremities exam: Present: full ROM Additional comments: Left UE flaccid. LLE foot drop. Needs max encouragement to assist with toileting tasks. - Neurological Exam Neurological exam: Present: abnormal gait, alert, altered, motor sensory deficit - Psychiatric Psychiatric exam: Present: flat affect, normal mood. Absent: normal affect - Skin Skin exam: Present: intact, normal color Physical Medicine-PN: Obj Data - Labs CBC & Chem 7: 02/23/18 06:42 02/23/18 06:42 Labs: Laboratory Results - last 24 hr 02/23/18 02/23/18 06:42 06:42 WBC 10.9 RBC 3.84 L Hgb 11.2 L Hct 33.9 L MCV 88.3 MCH 29.2 MCHC 33.0 RDW 14.7 H Plt Count 221 MPV 10.2 Immature Gran % 0.4 Seg Neutrophils % 70.2 Lymphocytes % 15.6 Monocytes % 8.9 Eosinophils % 4.4 Basophils % 0.5 Neutrophils # 7.7 Lymphocytes # 1.7 Monocytes # 1.0 Eosinophils # 0.5 Basophils # 0.1 Sodium 136 Potassium 3.8 Chloride 101 Carbon Dioxide 26 BUN 12 Creatinine 0.96 Est GFR ( Amer) > 60 Est GFR (Non-Af Amer) > 60 BUN/Creatinine Ratio 13 Glucose 118 H Calculated Osmolality 283 Calcium 9.8 - ABG Interpretation ABG results: PT/INR, D-dimer PT 14.2 Seconds (9.4-12.1) H 01/06/18 05:25 - VTE Documentation of Mechanical Device: Graduated compression elastic hosiery Consult Discharge Plan - Plan Referrals: Erika Baca TRIMMER OPERATOR [employer]NIFE [Primary Care Provider] -
[2018-02-23] MEDS: Acetaminophen 325 MG TABLET PO PRN (22:33)
[2018-02-24] MEDS: Cholestyramine 4 GM POWD.PACK PO SCH ×3 (08:18→18:34)
--- NOTE | 2018-02-24 11:05 | Internal Med Progress Note ---
Date of Encounter: 02/24/18 Time of Encounter: 11:02 - Assessment and plan (1) CVA (cerebral vascular accident) Current Visit: Yes Status: Acute Assessment and plan: No new neurological deficits. Left-sided hemiplegia. Continues to participate with PT\OT\ST. Will continue to monitor. Therapy working on family training. Qualifiers: CVA mechanism: unspecified Qualified Code(s): I63.9 - Cerebral infarction, unspecified (2) Diabetes type 2, controlled Current Visit: Yes Status: Chronic Assessment and plan: Controlled with current medications. Continue to monitor fingerstick blood sugars and will adjust medications as necessary. Qualifiers: Diabetes mellitus jail insulin use: without jail use Diabetes mellitus complication status: without complication Qualified Code(s): E11.9 - Type 2 diabetes mellitus without complications (3) HTN (hypertension) Current Visit: Yes Status: Chronic Assessment and plan: Stable with current medications. Monitor blood pressure Qualifiers: Hypertension type: essential hypertension Qualified Code(s): I10 - Essential (primary) hypertension - Time Spent With Patient less than 15 minutes - Subjective Interval history: Patient currently up in wheelchair participating with therapy. Ambulating in parallel bars with help from therapies. Right hip continues to be tight and difficult to range. Therapy working on stretching . states slight pain to left shoulder. no new neuro deficit. bowels moving daily with bowel program. stool softeners on hold, no loose stools yet today. maintaining appetite and hydration. - Constitutional Vitals: Temp Pulse Resp BP Pulse Ox 98.5 F 99 16 154/89 98 02/23/18 19:14 02/23/18 19:14 02/23/18 19:14 02/23/18 19:14 02/23/18 19:14 General appearance: Present: A&O X 3, pleasant, no acute distress, answers questions appropriately Exam: Flat affect - Head Head exam: Present: atraumatic, normocephalic - Eye Eye exam: Present: PERRL, conjuntiva pink, sclera anicteric Pupils: Present: PERRL - Neck Neck exam general surgery: Present: supple, trachea midline. Absent: lymphadenopathy - Respiratory Respiratory exam: Present: CTAB. Absent: accessory muscle use, rales, rhonchi, wheezes - Cardiovascular Cardiovascular exam: Present: RRR, +S1, +S2. Absent: diastolic murmur, gallop, rubs, systolic murmur - GI/Abdominal GI/Abdominal exam: Present: normal bowel sounds, soft, no peritoneal signs. Absent: distended, tenderness - Extremities Exam Extremities exam: Present: warm, radial pulses palpable and symmetrical. Absent : calf tenderness, cyanotic, pedal edema Additional comments: Left hemiplegia - Neurological Exam Neurological exam: Present: CN II-XII intact, oriented X3, no focal deficits. Absent: pronater drift, facial droop, speech deficit - Skin Skin exam: Present: dry, intact Internal Medicine: Result - Labs CBC & Chem 7: 02/23/18 06:42 02/23/18 06:42 - ABG Interpretation ABG results: PT/INR, D-dimer PT 14.2 Seconds (9.4-12.1) H 01/06/18 05:25 - VTE Documentation of Mechanical Device: Graduated compression elastic hosiery Consult Discharge Plan - Plan Referrals: Erika Baca ICE DELIVERY DRIVER [Primary Care Provider] -
[2018-02-24] MEDS: Acetaminophen 325 MG TABLET PO PRN ×2 (12:19→20:48)
[2018-02-24] MEDS: Simethicone 80 MG TAB.CHEW PO SCH ×3 (12:19→20:49)
[2018-02-24] MEDS: hydrALAZINE 25 MG TABLET GTUBE SCH ×2 (12:19→18:34)
[2018-02-24] MEDS: Aspirin Enteric Coated 81 MG Tablet PO SCH (12:19)
[2018-02-24] MEDS: Nystatin POWDER 30 GM BOTTLE TP SCH ×3 (12:20→18:34)
[2018-02-25] MEDS: Cholestyramine 4 GM POWD.PACK PO SCH ×3 (08:15→15:47)
[2018-02-25] MEDS: Aspirin Enteric Coated 81 MG Tablet PO SCH (10:40)
[2018-02-25] MEDS: hydrALAZINE 25 MG TABLET GTUBE SCH ×3 (10:40→18:34)
[2018-02-25] MEDS: Simethicone 80 MG TAB.CHEW PO SCH ×3 (10:40→21:48)
--- NOTE | 2018-02-25 14:35 | Internal Med Progress Note ---
Date of Encounter: 02/25/18 Time of Encounter: 14:33 - Assessment and plan (1) CVA (cerebral vascular accident) Current Visit: Yes Status: Acute Assessment and plan: No new neurological deficits. Left-sided hemiplegia. Continues to participate with PT\OT\ST. Will continue to monitor. Therapy working on family training. home safety eval tomorrow. Qualifiers: CVA mechanism: unspecified Qualified Code(s): I63.9 - Cerebral infarction, unspecified (2) Diabetes type 2, controlled Current Visit: Yes Status: Chronic Assessment and plan: Controlled with current medications. Continue to monitor fingerstick blood sugars and will adjust medications as necessary. Qualifiers: Diabetes mellitus snf insulin use: without snf use Diabetes mellitus complication status: without complication Qualified Code(s): E11.9 - Type 2 diabetes mellitus without complications (3) HTN (hypertension) Current Visit: Yes Status: Chronic Assessment and plan: Stable with current medications. Monitor blood pressure Qualifiers: Hypertension type: essential hypertension Qualified Code(s): I10 - Essential (primary) hypertension - Time Spent With Patient 25 - 35 minutes - Subjective Interval history: Patient currently up in wheelchair participating with therapy. Right hip continues to be tight and difficult to range. Therapy working on stretching . no new neuro deficit. bowels moving daily with bowel program. maintaining appetite and hydration. scheduled for home safety visit tomorrow. - Constitutional Vitals: Temp Pulse Resp BP Pulse Ox 97.4 F L 75 18 132/76 94 02/25/18 08:04 02/25/18 08:04 02/25/18 08:04 02/25/18 08:04 02/25/18 08:04 General appearance: Present: A&O X 3, pleasant, no acute distress, answers questions appropriately - Head Head exam: Present: atraumatic, normocephalic - Eye Eye exam: Present: PERRL, conjuntiva pink, sclera anicteric Pupils: Present: PERRL - Neck Neck exam general surgery: Present: supple, trachea midline. Absent: lymphadenopathy - Respiratory Respiratory exam: Present: CTAB. Absent: accessory muscle use, rales, rhonchi, wheezes - Cardiovascular Cardiovascular exam: Present: RRR, +S1, +S2. Absent: diastolic murmur, gallop, rubs, systolic murmur - GI/Abdominal GI/Abdominal exam: Present: normal bowel sounds, soft, no peritoneal signs. Absent: distended, tenderness - Extremities Exam Extremities exam: Present: warm, radial pulses palpable and symmetrical. Absent : calf tenderness, cyanotic, pedal edema Additional comments: left hemiplegia. - Neurological Exam Neurological exam: Present: CN II-XII intact, oriented X3, no focal deficits. Absent: pronater drift, facial droop, speech deficit - Skin Skin exam: Present: dry, intact Internal Medicine: Result - Labs CBC & Chem 7: 02/23/18 06:42 02/23/18 06:42 - ABG Interpretation ABG results: PT/INR, D-dimer PT 14.2 Seconds (9.4-12.1) H 01/06/18 05:25 - VTE Documentation of Mechanical Device: Graduated compression elastic hosiery Consult Discharge Plan - Plan Referrals: Erika Baca GASTROENTEROLOGIST [Primary Care Provider] -
[2018-02-25] MEDS: Nystatin POWDER 30 GM BOTTLE TP SCH ×3 (15:47→21:49)
--- NOTE | 2018-02-25 18:23 | Physical Med Progress Note ---
Date of Encounter: 02/25/18 Time of Encounter: 18:30 Assessment and Plan (1) CVA (cerebral vascular accident) Current Visit: Yes Status: Acute Assessment and plan: Slow progress. Left hand high tone with fusiform swelling. 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 Not appropriate for steroid pulse. I started him on low dose Zanaflex. Continue therapies. Home safety visit tomorrow. Qualifiers: CVA mechanism: unspecified Qualified Code(s): I63.9 - Cerebral infarction, unspecified (2) Hemorrhagic stroke Current Visit: No Status: Inactive Physical Medicine-PN: Subj Interval history: Still c/o left shoulder and right hip pian - Constitutional Vitals: Vital Signs Temp Pulse Resp BP Pulse Ox 02/25/18 08:04 97.4 F L 75 18 132/76 94 02/24/18 19:00 98 F 85 16 177/87 98 Intake and Output 02/25/18 02/25/18 02/25/18 07:59 15:59 23:59 Intake Total 120 / 120 Balance 120 / 120 Intake: Oral 120 / 120 Other: Meal Breakfast Dinner Percent of Meal Consumed 100% 45% # Voids 1 # Urine Diapers 1 General appearance: cooperative, mild distress, no acute distress, obese - Eye Eye exam: Present: EOMI - ENT ENT exam: Present: mucous membranes moist - Extremities Exam Additional comments: Left upper extremity swelling minima Pain in left shoulder with stretching at wrist. High tone at arm, mild in leg. Good leg strength but some tone as well. - Neurological Exam Additional comments: Diminished sensatiton left side - Psychiatric Psychiatric exam: Present: flat affect Physical Medicine-PN: Obj Data - Labs CBC & Chem 7: 02/23/18 06:42 02/23/18 06:42 - ABG Interpretation ABG results: PT/INR, D-dimer PT 14.2 Seconds (9.4-12.1) H 01/06/18 05:25 - VTE Documentation of Mechanical Device: Graduated compression elastic hosiery Consult Discharge Plan - Plan Referrals: Erika Baca HOUSE SUPERINTENDENT [Primary Care Provider] -
[2018-02-25] MEDS: tiZANidine 4 MG TABLET PO SCH (21:48)
[2018-02-26] MEDS: hydrALAZINE 25 MG TABLET GTUBE SCH ×3 (00:13→16:18)
[2018-02-26] MEDS: Acetaminophen 325 MG TABLET PO PRN ×3 (02:52→19:45)
[2018-02-26] MEDS: Cholestyramine 4 GM POWD.PACK PO SCH ×3 (06:55→16:17)
[2018-02-26] MEDS: Aspirin Enteric Coated 81 MG Tablet PO SCH (08:02)
[2018-02-26] MEDS: tiZANidine 4 MG TABLET PO SCH ×3 (08:02→19:46)
[2018-02-26] MEDS: Simethicone 80 MG TAB.CHEW PO SCH ×2 (08:03→15:48)
[2018-02-26] MEDS: Nystatin POWDER 30 GM BOTTLE TP SCH ×3 (08:03→19:48)
[2018-02-26] MEDS ORDERED: Simethicone 80 MG TAB.CHEW PO PRN (15:13)
[2018-02-27] MEDS: hydrALAZINE 25 MG TABLET GTUBE SCH ×3 (00:02→16:15)
[2018-02-27] MEDS: Cholestyramine 4 GM POWD.PACK PO SCH ×3 (06:43→16:15)
[2018-02-27] MEDS: Acetaminophen 325 MG TABLET PO PRN ×2 (09:31→18:51)
[2018-02-27] MEDS: tiZANidine 4 MG TABLET PO SCH ×3 (09:31→21:45)
[2018-02-27] MEDS: Aspirin Enteric Coated 81 MG Tablet PO SCH (09:54)
[2018-02-27] MEDS: Nystatin POWDER 30 GM BOTTLE TP SCH ×3 (11:35→21:50)
--- NOTE | 2018-02-27 12:22 | Internal Med Progress Note ---
Date of Encounter: 02/27/18 Time of Encounter: 12:20 - Assessment and plan (1) CVA (cerebral vascular accident) Current Visit: Yes Status: Acute Assessment and plan: No known acute neurological deficits noted since last exam. Continued left hemiplegia. Right craniectomy site appears well-healed. Patient had follow-up with neurosurgery for evaluation of replacement of craniectomy flap with plans to replace his bone flap in the upcoming week. We will continue with current therapy. Patient has been progressing well with physical therapy. We will continue with current plan of care. Qualifiers: CVA mechanism: unspecified Qualified Code(s): I63.9 - Cerebral infarction, unspecified (2) Diabetes type 2, controlled Current Visit: Yes Status: Chronic Assessment and plan: No acute issues. Patient's glucose well controlled with current medication regimen. Qualifiers: Diabetes mellitus halfway insulin use: without halfway use Diabetes mellitus complication status: without complication Qualified Code(s): E11.9 - Type 2 diabetes mellitus without complications (3) HTN (hypertension) Current Visit: Yes Status: Chronic Assessment and plan: Vital signs stable. We will continue with current medications. Qualifiers: Hypertension type: essential hypertension Qualified Code(s): I10 - Essential (primary) hypertension - Time Spent With Patient less than 15 minutes - Subjective Interval history: Patient without c/o discomforts or dyspnea. Patient with left hemiplegia. Patient denies any other discomforts or issues. States that he is doing well with therapy. Patient had follow-up with neurosurgery to evaluate replacement of bone flap. states that the surgeon stated he wanted to make arrangements for the procedure upcoming days. - Constitutional Vitals: Temp Pulse Resp BP Pulse Ox 97.8 F 71 19 171/89 95 02/26/18 19:00 02/26/18 19:00 02/26/18 19:00 02/26/18 19:00 02/26/18 19:00 General appearance: Present: A&O X 3, pleasant, no acute distress, answers questions appropriately - Head Head exam: Present: atraumatic, normocephalic - Eye Eye exam: Present: PERRL, conjuntiva pink, sclera anicteric Pupils: Present: PERRL - Neck Neck exam general surgery: Present: supple, trachea midline. Absent: lymphadenopathy - Respiratory Respiratory exam: Present: CTAB. Absent: accessory muscle use, rales, rhonchi, wheezes - Cardiovascular Cardiovascular exam: Present: RRR, +S1, +S2. Absent: diastolic murmur, gallop, rubs, systolic murmur - GI/Abdominal GI/Abdominal exam: Present: normal bowel sounds, soft, no peritoneal signs. Absent: distended, tenderness - Extremities Exam Extremities exam: Present: warm, radial pulses palpable and symmetrical. Absent : calf tenderness, cyanotic, pedal edema - Neurological Exam Neurological exam: Present: CN II-XII intact. Absent: pronater drift, facial droop, speech deficit Additional comments: Patient was short answers to questions, but appears to be appropriate and oriented. Continued left hemiplegia. Right craniectomy surgical site is well- healed. - Skin Skin exam: Present: dry, intact Internal Medicine: Result - Labs CBC & Chem 7: 02/23/18 06:42 02/23/18 06:42 - ABG Interpretation ABG results: PT/INR, D-dimer PT 14.2 Seconds (9.4-12.1) H 01/06/18 05:25 - VTE Documentation of Mechanical Device: Graduated compression elastic hosiery Consult Discharge Plan - Plan Referrals: Erika Baca DIETARY TECH [Primary Care Provider] -
[2018-02-27] MEDS ORDERED: Famotidine 20 MG TABLET PO SCH (22:15)
[2018-02-28] MEDS: hydrALAZINE 25 MG TABLET GTUBE SCH ×4 (02:18→23:47)
[2018-02-28] MEDS: Acetaminophen 325 MG TABLET PO PRN ×2 (06:20→20:22)
[2018-02-28] MEDS: Cholestyramine 4 GM POWD.PACK PO SCH ×3 (10:05→17:14)
[2018-02-28] MEDS: Aspirin Enteric Coated 81 MG Tablet PO SCH (10:08)
[2018-02-28] MEDS: tiZANidine 4 MG TABLET PO SCH ×3 (10:09→20:22)
[2018-02-28] MEDS: Nystatin POWDER 30 GM BOTTLE TP SCH ×3 (10:09→20:22)
[2018-02-28] MEDS: Famotidine 20 MG TABLET PO PRN (20:21)
[2018-03-01] MEDS: Cholestyramine 4 GM POWD.PACK PO SCH ×3 (07:47→17:11)
[2018-03-01] MEDS: Nystatin POWDER 30 GM BOTTLE TP SCH ×3 (09:31→21:59)
[2018-03-01] MEDS: tiZANidine 4 MG TABLET PO SCH ×3 (09:31→21:58)
[2018-03-01] MEDS: hydrALAZINE 25 MG TABLET GTUBE SCH ×2 (09:31→17:11)
[2018-03-01] MEDS: Aspirin Enteric Coated 81 MG Tablet PO SCH (09:31)
[2018-03-01] MEDS: Acetaminophen 325 MG TABLET PO PRN (22:12)
[2018-03-02] MEDS: hydrALAZINE 25 MG TABLET GTUBE SCH ×3 (00:35→18:17)
[2018-03-02] MEDS: Cholestyramine 4 GM POWD.PACK PO SCH (06:30)
[2018-03-02] MEDS: Acetaminophen 325 MG TABLET PO PRN ×2 (06:40→20:16)
[2018-03-02] MEDS: Aspirin Enteric Coated 81 MG Tablet PO SCH (10:25)
[2018-03-02] MEDS: Nystatin POWDER 30 GM BOTTLE TP SCH ×3 (10:25→20:15)
[2018-03-02] MEDS: tiZANidine 4 MG TABLET PO SCH ×3 (10:25→20:16)
--- NOTE | 2018-03-02 10:54 | Internal Med Progress Note ---
Date of Encounter: 03/02/18 Time of Encounter: 10:53 - Assessment and plan (1) CVA (cerebral vascular accident) Current Visit: Yes Status: Acute Assessment and plan: No known acute neurological deficits noted since last exam. Continued left hemiplegia. Right craniectomy site appears well-healed. Patient had follow-up with neurosurgery for evaluation of replacement of craniectomy flap with plans to replace his bone flap in the upcoming week. We will continue with current therapy. Patient has been progressing well with physical therapy. We will continue with current plan of care. Qualifiers: CVA mechanism: unspecified Qualified Code(s): I63.9 - Cerebral infarction, unspecified (2) Diabetes type 2, controlled Current Visit: Yes Status: Chronic Assessment and plan: No acute issues. Patient's glucose well controlled with current medication regimen. Qualifiers: Diabetes mellitus half-way insulin use: without half-way use Diabetes mellitus complication status: without complication Qualified Code(s): E11.9 - Type 2 diabetes mellitus without complications (3) HTN (hypertension) Current Visit: Yes Status: Chronic Assessment and plan: Vital signs stable. We will continue with current medications. Qualifiers: Hypertension type: essential hypertension Qualified Code(s): I10 - Essential (primary) hypertension - Time Spent With Patient less than 15 minutes - Subjective Interval history: Patient without c/o discomforts or dyspnea. Patient with left hemiplegia. Patient denies any other discomforts or issues. States that he is doing well with therapy. Patient had follow-up with neurosurgery to evaluate replacement of bone flap. states that the surgeon stated he wanted to make arrangements for the procedure upcoming days. - Constitutional Vitals: Temp Pulse Resp BP Pulse Ox 98.4 F 68 16 133/52 97 03/02/18 07:00 03/02/18 07:00 03/02/18 07:00 03/02/18 07:00 03/02/18 07:00 General appearance: Present: A&O X 3, pleasant, no acute distress, answers questions appropriately - Head Head exam: Present: atraumatic, normocephalic - Eye Eye exam: Present: PERRL, conjuntiva pink, sclera anicteric Pupils: Present: PERRL - Neck Neck exam general surgery: Present: supple, trachea midline. Absent: lymphadenopathy - Respiratory Respiratory exam: Present: CTAB. Absent: accessory muscle use, rales, rhonchi, wheezes - Cardiovascular Cardiovascular exam: Present: RRR, +S1, +S2. Absent: diastolic murmur, gallop, rubs, systolic murmur - GI/Abdominal GI/Abdominal exam: Present: normal bowel sounds, soft, no peritoneal signs. Absent: distended, tenderness - Extremities Exam Extremities exam: Present: warm, radial pulses palpable and symmetrical. Absent : calf tenderness, cyanotic, pedal edema - Neurological Exam Neurological exam: Present: CN II-XII intact, oriented X3. Absent: pronater drift, facial droop, speech deficit Additional comments: Patient continues with left hemiplegia. Right craniectomy surgical site appears well-healed - Skin Skin exam: Present: dry, intact Internal Medicine: Result - Labs CBC & Chem 7: 02/23/18 06:42 02/23/18 06:42 - ABG Interpretation ABG results: PT/INR, D-dimer PT 14.2 Seconds (9.4-12.1) H 01/06/18 05:25 - VTE Documentation of Mechanical Device: Graduated compression elastic hosiery Consult Discharge Plan - Plan Referrals: Erika Baca CORPORATE TRUST OFFICER [Primary Care Provider] -
--- NOTE | 2018-03-02 16:15 | Physical Med Progress Note ---
Date of Encounter: 03/02/18 Time of Encounter: 16:12 Assessment and Plan (1) CVA (cerebral vascular accident) Current Visit: Yes Status: Acute Assessment and plan: Slow but steady progress. Improving balance. Continue Rehab. Qualifiers: CVA mechanism: unspecified Qualified Code(s): I63.9 - Cerebral infarction, unspecified (2) Hemorrhagic stroke Current Visit: No Status: Inactive Physical Medicine-PN: Subj Interval history: Alert. No distress. No new complaints. Left shoulder ache worse with activity. - Constitutional Vitals: Vital Signs Temp Pulse Resp BP Pulse Ox 03/02/18 07:00 98.4 F 68 16 133/52 97 03/01/18 19:11 97.8 F 87 16 142/73 95 Intake and Output 03/02/18 03/02/18 03/02/18 07:59 15:59 23:59 Intake Total 240 / 240 Balance 240 / 240 Intake: Oral 240 / 240 Other: Meal Lunch Percent of Meal Consumed 50% # Urine Diapers 1 # Bowel Movement Diapers 1 Weight 90.764 kg Patient Weight 03/02/18 23:59 Weight 90.764 kg - Extremities Exam Additional comments: Moderate tone at left wrist. I can get him to wrist neutral. No movement LUE to shoulder. - Neurological Exam Neurological exam: Present: abnormal gait, alert, altered, motor sensory deficit , facial droop Additional comments: Left hemiplegia. Variable assist with transfers. Works harder with than staff. Needs to go back to have his skull flap replaced. D/C planning. Physical Medicine-PN: Obj Data - Labs CBC & Chem 7: 02/23/18 06:42 02/23/18 06:42 - ABG Interpretation ABG results: PT/INR, D-dimer PT 14.2 Seconds (9.4-12.1) H 01/06/18 05:25 - VTE Documentation of Mechanical Device: Graduated compression elastic hosiery Consult Discharge Plan - Plan Referrals: Erika Baca CNP [Primary Care Provider] -
[2018-03-02] MEDS: Famotidine 20 MG TABLET PO PRN (18:21)
[2018-03-03] MEDS: hydrALAZINE 25 MG TABLET GTUBE SCH ×3 (00:47→16:41)
[2018-03-03] MEDS: Aspirin Enteric Coated 81 MG Tablet PO SCH (10:20)
[2018-03-03] MEDS: tiZANidine 4 MG TABLET PO SCH ×3 (10:20→21:57)
[2018-03-03] MEDS: Nystatin POWDER 30 GM BOTTLE TP SCH ×2 (10:20→16:42)
--- NOTE | 2018-03-03 11:39 | Internal Med Progress Note ---
Date of Encounter: 03/03/18 Time of Encounter: 11:37 - Assessment and plan (1) CVA (cerebral vascular accident) Current Visit: Yes Status: Acute Assessment and plan: No known acute neurological deficits noted since last exam. Patient remains without any complaints. Continued left hemiplegia. Right craniectomy site appears well-healed. Patient had follow-up with neurosurgery for evaluation of replacement of craniectomy flap with plans to replace his bone flap in the upcoming week. We will continue with current therapy. Patient has been progressing well with physical therapy. We will continue with current plan of care. Qualifiers: CVA mechanism: unspecified Qualified Code(s): I63.9 - Cerebral infarction, unspecified (2) Diabetes type 2, controlled Current Visit: Yes Status: Chronic Assessment and plan: No acute issues. Patient's glucose well controlled with current medication regimen. Qualifiers: Diabetes mellitus terminal worker insulin use: without fci use Diabetes mellitus complication status: without complication Qualified Code(s): E11.9 - Type 2 diabetes mellitus without complications (3) HTN (hypertension) Current Visit: Yes Status: Chronic Assessment and plan: Vital signs stable. We will continue with current medications. Qualifiers: Hypertension type: essential hypertension Qualified Code(s): I10 - Essential (primary) hypertension - Time Spent With Patient less than 15 minutes - Subjective Interval history: Patient without c/o discomforts or dyspnea. Patient with left hemiplegia. Patient denies any other discomforts or issues. States that he is doing well with therapy. Patient had follow-up with neurosurgery to evaluate replacement of bone flap. states that the surgeon stated he wanted to make arrangements for the procedure upcoming days. - Constitutional Vitals: Temp Pulse Resp BP Pulse Ox 97.9 F 71 16 131/75 93 03/03/18 07:00 03/03/18 07:00 03/03/18 07:00 03/03/18 07:00 03/03/18 07:00 General appearance: Present: A&O X 3, pleasant, no acute distress, answers questions appropriately - Head Head exam: Present: atraumatic, normocephalic - Eye Eye exam: Present: PERRL, conjuntiva pink, sclera anicteric Pupils: Present: PERRL - Neck Neck exam general surgery: Present: supple, trachea midline. Absent: lymphadenopathy - Respiratory Respiratory exam: Present: CTAB. Absent: accessory muscle use, rales, rhonchi, wheezes - Cardiovascular Cardiovascular exam: Present: RRR, +S1, +S2. Absent: diastolic murmur, gallop, rubs, systolic murmur - GI/Abdominal GI/Abdominal exam: Present: normal bowel sounds, soft, no peritoneal signs. Absent: distended, tenderness - Extremities Exam Extremities exam: Present: warm, radial pulses palpable and symmetrical. Absent : calf tenderness, cyanotic, pedal edema - Neurological Exam Neurological exam: Present: CN II-XII intact, oriented X3. Absent: pronater drift, facial droop, speech deficit Additional comments: Patient continues with left hemiplegia. Right craniectomy surgical incision is well-healed - Skin Skin exam: Present: dry, intact Internal Medicine: Result - Labs CBC & Chem 7: 02/23/18 06:42 02/23/18 06:42 - ABG Interpretation ABG results: PT/INR, D-dimer PT 14.2 Seconds (9.4-12.1) H 01/06/18 05:25 - VTE Documentation of Mechanical Device: Graduated compression elastic hosiery Consult Discharge Plan - Plan Referrals: Erika Baca HEALTH AND SAFETY INSPECTOR [Primary Care Provider] -
--- NOTE | 2018-03-03 14:25 | Discharge Summary ---
Date of Encounter: 03/04/18 Time of Encounter: 09:00 - Discharge Diagnosis (1) Stroke determined by clinical assessment Priority: Primary Status: Acute (2) CVA (cerebral vascular accident) Priority: Primary Status: Acute Qualifiers: CVA mechanism: unspecified Qualified Code(s): I63.9 - Cerebral infarction, unspecified Hospital course: Mr. Fuentes is a 67 year old male Discharge discussed with: patient, family - Time Spent with Patient Total time spent providing and/or coordinating discharge services: Less than 30 minutes - Discharge Medications Home Medications: Levothyroxine [Synthroid] 100 mcg PO 0630 12/06/17 [History] Losartan [Cozaar] 50 mg PO Q12HR 12/06/17 [History] Aspirin Enteric Coated [Aspirin EC] 81 mg PO DAILY 01/05/18 [History] Atorvastatin Calcium [Lipitor] 80 mg PO HS 01/05/18 [History] Docusate [Colace] 200 mg GTUBE BID PRN 01/05/18 [History] hydrALAZINE [HydrALAZINE] 25 mg PO Q8HR 01/05/18 [History] hydroCHLOROthiazide [Hydrochlorothiazide] 25 mg PO DAILY 01/05/18 [History] Allergies/Adverse Reactions: 3 Allergy/AdvReac Type Severity Reaction Status Date / Time No Known Allergies Allergy Verified 12/06/17 09:31 Date of admission: 01/05/18 16:00 Primary care physician: Erika Baca CNP Consults: 01/05/18 16:43 Consult to Occupational Therapy [CONS] Routine Comment: eval and treat Reason for Consult: cva Consult to Physical Therapy [CONS] Routine Comment: eval and treat Reason for Consult: cva Consult to Recreational Therapy [CONS] Routine Comment: 01/06/18 09:52 Consult to Speech Therapy [CONS] Routine Comment: FES/ Vital Stim Reason for Consult: MCA Time Notified: 09:52 Call Completed: Yes 01/07/18 13:58 Consult to Physical Medicine/Rehab [CONS] Routine Reason for Consult: CVA Time Notified: 13:59 Call Completed: Yes Discharging clinician: Rocky Shipman Anticipated date of discharge: 03/04/18 - Constitutional Vitals: Temp Pulse Resp BP Pulse Ox 97.9 F 71 16 131/75 93 03/03/18 07:00 03/03/18 07:00 04/24/18 07:00 03/03/18 07:00 03/03/18 07:00 General appearance: Present: A&O X 3, pleasant, no acute distress, answers questions appropriately - Head Head exam: Present: atraumatic, normocephalic Additional comments: obvious cranial abnormality secondary to surgical removal rt skull. - Neck Neck exam general surgery: Present: supple, trachea midline. Absent: lymphadenopathy - Respiratory Respiratory exam: Present: CTAB. Absent: accessory muscle use, rales, rhonchi, wheezes - Cardiovascular Cardiovascular exam: Present: RRR, +S1, +S2. Absent: diastolic murmur, gallop, rubs, systolic murmur - Patient Status Disposition: Transfer Short-Term Hosp Condition: Fair Functional capacity at discharge: wheelchair bound Overall status at discharge: patient is not back to baseline - Discharge Instructions Follow Up With: Erika Baca SENIOR HADOOP DEVELOPER [Primary Care Provider] - - Diet and Activity Activity: as per physical therapy Diet: regular diet - VTE Documentation of Mechanical Device: Graduated compression elastic hosiery
[2018-03-03] MEDS: Acetaminophen 325 MG TABLET PO PRN (21:57)
[2018-03-03] MEDS: Famotidine 20 MG TABLET PO PRN (21:58)
[2018-03-04] MEDS: Nystatin POWDER 30 GM BOTTLE TP SCH (01:17)
[2018-03-04] MEDS: hydrALAZINE 25 MG TABLET GTUBE SCH (01:19)
[2018-03-04 04:59] VITALS: BP 145/76
== END 2018-03-04 06:30 | disposition short-term general hospital (02) | DRG 56 ==
LOC: INPGRE 16:00

== ENCOUNTER 2018-03-07 21:49 | Inpatient (IN) ==
[2018-03-07] MEDS: hydrALAZINE 25 MG TABLET PO SCH (23:03)
[2018-03-07] MEDS: *HR* OxyCODONE/APAP 5/325 TABLET PO PRN (23:03)
[2018-03-07] MEDS: tiZANidine 4 MG TABLET PO SCH (23:04)
[2018-03-07] MEDS: Famotidine 20 MG TABLET PO SCH (23:04)
[2018-03-08] MEDS ORDERED: 0.9 % Sodium Chloride 500 ML IVC ONE (00:40)
[2018-03-08 04:51] LABS: Basophils % 0.3 %; Eosinophils % 0.2 %; Hematocrit 25.5 % (37.5-50.1); Hemoglobin 8.3 g/dL (12.9-16.9); Immature Granulocytes % 0.6 % (0-4); Lymphocytes # 1.3 K/mcL (0.6-4.6); Lymphocytes % 10.6 %; Mean Corpuscular HGB Conc 32.5 g/dL (31.6-35.5); Mean Corpuscular Hemoglobin 28.5 pg (28.0-33.3); Mean Corpuscular Volume 87.6 fL (83.0-100.0); Mean Platelet Volume 9.6 fL (9.4-12.4); Monocytes # 0.8 K/mcL (0.0-1.3); Monocytes % 6.5 %; Neutrophils # 10.1 K/mcL (1.6-8.9); Platelet Count 258 K/mcL (140-400); Red Blood Count 2.91 M/mcL (4.19-5.50); Red Cell Distribution Width 14.4 % (11.5-14.5); Segmented Neutrophils % 81.8 %
[2018-03-08 05:01] LABS: INR 1.2; Prothrombin Time 13.2 Seconds (9.4-12.1)
[2018-03-08 05:03] LABS: Activated Partial Thrombo Time 24.1 Seconds (26.0-36.0)
[2018-03-08 05:12] LABS: BUN/Creatinine Ratio 11 (6-26); Blood Urea Nitrogen 11 mg/dL (8-23); Calcium 9.2 mg/dL (8.6-10.3); Carbon Dioxide 26 mEq/L (23-29); Chloride 101 mEq/L (98-107); Glucose 122 mg/dL (70-105); Osmolality,Calculated 279 (280-300); Potassium 3.7 mEq/L (3.5-5.1); Sodium 134 mEq/L (136-145); eGFR For African Americans > 60 (> 60); eGFR For Non-African Americans > 60 (> 60)
[2018-03-08] MEDS: hydrALAZINE 25 MG TABLET PO SCH ×3 (06:40→22:15)
[2018-03-08] MEDS ORDERED: (Lidocaine [Aspercreme] 1 EACH) TP SCH (09:00)
[2018-03-08] MEDS: tiZANidine 4 MG TABLET PO SCH ×3 (09:11→22:13)
[2018-03-08] MEDS: Sennosides 8.6 MG TABLET PO SCH (09:11)
[2018-03-08] MEDS: Famotidine 20 MG TABLET PO SCH ×2 (09:11→22:13)
[2018-03-08] MEDS: Aspirin Enteric Coated 81 MG Tablet PO SCH (09:11)
--- NOTE | 2018-03-08 10:08 | Internal Med History&Physical ---
Date of Encounter: 03/08/18 Time of Encounter: 10:03 Assessment and Plan (1) History of cranioplasty Current visit: Yes Status: Acute s/p cranioplasty back to rehab . insicion is stable pain management as needed (2) CVA (cerebral vascular accident) Current visit: No Status: Chronic stable at the present time left side paralysis . Qualifiers: CVA mechanism: unspecified Qualified Code(s): I63.9 - Cerebral infarction, unspecified (3) HTN (hypertension) Current visit: No Status: Chronic had episode where his blood pressure was some what low received some fluids . will need to followup today BP is stable on meds Qualifiers: Hypertension type: essential hypertension Qualified Code(s): I10 - Essential (primary) hypertension (4) Hypothyroid Current visit: No Status: Chronic on meds stable no new change Qualifiers: Hypothyroidism type: unspecified Qualified Code(s): E03.9 - Hypothyroidism , unspecified (5) Diabetes type 2, controlled Current visit: No Status: Chronic stable continue to monitor Qualifiers: Diabetes mellitus nursing home insulin use: without nursing home use Diabetes mellitus complication status: without complication Qualified Code(s): E11.9 - Type 2 diabetes mellitus without complications Internal Medicine - H&P: HPI Chief complaint: s/p crainioplasty Admitted From: Intrahospital Transfer (from [facility]) History of present illness: Mr. Fuentes is a 67 year old male s/o Crainotomy due to intracranial bleed and readmitted after he had craioplasty done at [facility] . Pt is awake and deneins any acute complains fo SOB no nausea vomiting or diarrhea . No fever or chills Past Med Surg Social Fam HX - Past Medical History Medical history: CVA, hyperlipidemia, hypertension, thyroid disease, other Psychiatric history: no psych history - Past Surgical History Surgical History: orthopedic, other - Social History Smoking Status: Never smoker Smokeless Tobacco Status: No Alcohol use: none Drug use: none - Family History Brother History Unknown: Yes Living Status: Still Living Internal Medicine - H&P: Meds Levothyroxine [Synthroid] 100 mcg PO 0630 12/06/17 [History] Losartan [Cozaar] 50 mg PO Q12HR 12/06/17 [History] Aspirin Enteric Coated [Aspirin EC] 81 mg PO DAILY 01/05/18 [History] Atorvastatin Calcium [Lipitor] 80 mg PO HS 01/05/18 [History] hydrALAZINE [HydrALAZINE] 25 mg PO Q8HR 01/05/18 [History] Acetaminophen [Tylenol] 650 mg PO Q6HR PRN 03/07/18 [History] Citalopram Hydrobromide [Celexa] 20 mg PO DAILY 03/07/18 [History] Docusate [Colace] 100 mg PO BID PRN 03/07/18 [History] Famotidine [Pepcid] 20 mg PO BID 03/07/18 [History] Oxycodone HCl/Acetaminophen [Percocet 5-325 mg Tablet] 1 each PO Q6HR PRN [History] Polyethylene Glycol 3350 [MiraLAX] 17 gm PO DAILY PRN 03/07/18 [History] Sennosides [Senna] 8.6 mg PO DAILY 03/07/18 [History] Tizanidine HCl [Zanaflex] 2 mg PO TID 03/07/18 [History] 3 Allergy/AdvReac Type Severity Reaction Status Date / Time No Known Allergies Allergy Verified 12/06/17 09:31 All Systems PM: A 10-system review of systems was performed and is negative for pertinent findings except as documented above in the HPI. - Constitutional Constitutional: no anorexia, no chills, no excessive sweating, no fatigue, no fever(s), no falls, no lethargy - EENT Eyes: no blurry vision, no diplopia, no discharge, no loss of peripheral vision , no loss of vision Ears: no ear discharge, no ear pain Nose, mouth and throat: dysphagia, facial pain, no bleeding gums, no dry mouth, no neck pain Additional comments: tight side facial pain and difficulty in swallowing due to recent surgery - Cardiovascular Cardiovascular ROS IM: no chest pain, no claudication, no diaphoresis, no dyspnea, no dyspnea on exertion, no edema, no lightheadedness, no orthopnea, no palpitations, no paroxysmal nocturnal dyspnea, no syncope - Respiratory Respiratory: no dyspnea, no dyspnea on exertion, no wheezing, no snoring, no stridor, no pain on inspiration, no chest congestion, no change in phlegm color , no pain with cough - Gastrointestinal Gastrointestinal: no abdominal pain, no change in bowel habits, no diarrhea, no dyspepsia, no dysphagia, no fecal incontinence, no heartburn, no hematochezia, no loose stools - Genitourinary Genitourinary ROS male: no flank pain, no genital lesions, no hematuria, no nocturia - Musculoskeletal Musculoskeletal ROS IM: no back pain, no joint swelling - Neurological Neurological ROS: abnormal gait, abnormal movements, disequilibrium, lack of coordination, weakness, no abnormal speech, no confusion, no convulsions, no tremor(s) - Constitutional Vitals: Temp Pulse Resp BP Pulse Ox 97.7 F 66 18 163/88 99 03/08/18 04:00 03/08/18 09:09 03/08/18 09:09 03/08/18 09:09 03/08/18 09:09 General appearance: Present: A&O X 3, pleasant, no acute distress, answers questions appropriately - Head Additional comments: Cranioplast has sutures no discharge - Eye Eye exam: Present: EOMI, PERRL. Absent: periorbital swelling, conjuntiva pink, sclera anicteric - Neck Neck exam general surgery: Present: full ROM, supple. Absent: tenderness, nuchal rigidity - Respiratory Respiratory exam: Present: CTAB. Absent: accessory muscle use, chest wall tenderness, respiratory distress, rhonchi, stridor, wheezes, tachypnea - Cardiovascular Cardiovascular exam: Present: RRR, +S1, +S2, +S3. Absent: clicks, irregular rhythm, JVD - GI/Abdominal GI/Abdominal exam: Present: normal bowel sounds, soft. Absent: firm, guarding, mass, rebound, rigid - Extremities Exam Extremities exam: Present: radial pulses palpable and symmetrical. Absent: pedal edema, tenderness - Neurological Exam Neurological exam: Present: alert, CN II-XII intact, oriented X3. Absent: speech deficit Additional comments: questionable facial deviation on left side , left arm and leg are paralyses and extended . right side motor function is within normal limits Internal Med - H&P Results - Labs CBC & Chem 7: 03/08/18 04:40 03/08/18 04:40 Labs: Short CBC 03/08/18 Range/Units 04:40 WBC 12.3 H (4.3-11.1) K/mcL Hgb 8.3 L (12.9-16.9) g/dL Hct 25.5 L (37.5-50.1) % Plt Count 258 (140-400) K/mcL Neutrophils # 10.1 H (1.6-8.9) K/mcL BMP 03/08/18 04:40 Sodium 134 L Potassium 3.7 Chloride 101 Carbon Dioxide 26 BUN 11 Creatinine 0.96 Glucose 122 H Calcium 9.2 - VTE Documentation of Mechanical Device: Graduated compression elastic hosiery
[2018-03-08] MEDS: *HR* OxyCODONE/APAP 5/325 TABLET PO PRN (15:39)
[2018-03-08] MEDS: Acetaminophen 325 MG TABLET PO PRN (22:15)
[2018-03-09 05:45] LABS: Basophils # 0.1 K/mcL (0.0-0.2); Basophils % 0.6 %; Eosinophils # 0.2 K/mcL (0.0-0.6); Eosinophils % 2.4 %; Hematocrit 24.4 % (37.5-50.1); Immature Granulocytes % 0.6 % (0-4); Lymphocytes # 2.1 K/mcL (0.6-4.6); Lymphocytes % 21.2 %; Mean Corpuscular HGB Conc 32.8 g/dL (31.6-35.5); Mean Corpuscular Hemoglobin 28.6 pg (28.0-33.3); Mean Corpuscular Volume 87.1 fL (83.0-100.0); Mean Platelet Volume 9.9 fL (9.4-12.4); Monocytes # 0.9 K/mcL (0.0-1.3); Monocytes % 8.8 %; Neutrophils # 6.7 K/mcL (1.6-8.9); Platelet Count 290 K/mcL (140-400); Red Cell Distribution Width 14.5 % (11.5-14.5); Segmented Neutrophils % 66.4 %
[2018-03-09 05:55] LABS: BUN/Creatinine Ratio 14 (6-26); Blood Urea Nitrogen 13 mg/dL (8-23); Calcium 9.1 mg/dL (8.6-10.3); Carbon Dioxide 26 mEq/L (23-29); Chloride 102 mEq/L (98-107); Glucose 101 mg/dL (70-105); Osmolality,Calculated 280 (280-300); Potassium 3.5 mEq/L (3.5-5.1); Sodium 135 mEq/L (136-145); eGFR For African Americans > 60 (> 60); eGFR For Non-African Americans > 60 (> 60)
[2018-03-09] MEDS: hydrALAZINE 25 MG TABLET PO SCH ×3 (06:44→23:02)
[2018-03-09] MEDS: Famotidine 20 MG TABLET PO SCH ×2 (08:29→21:33)
[2018-03-09] MEDS: Sennosides 8.6 MG TABLET PO SCH (08:30)
[2018-03-09] MEDS: Aspirin Enteric Coated 81 MG Tablet PO SCH (08:30)
[2018-03-09] MEDS: tiZANidine 4 MG TABLET PO SCH ×3 (08:30→21:33)
--- NOTE | 2018-03-09 15:33 | Internal Med Progress Note ---
Date of Encounter: 03/09/18 Time of Encounter: 15:31 - Assessment and plan (1) CVA (cerebral vascular accident) Current Visit: No Status: Chronic Assessment and plan: Continue PT, OT, ST. Will follow progress and follow up with neurologist as scheduled. Qualifiers: CVA mechanism: unspecified Qualified Code(s): I63.9 - Cerebral infarction, unspecified (2) HTN (hypertension) Current Visit: No Status: Chronic Assessment and plan: Controlled with current medication. Monitor blood pressure. Qualifiers: Hypertension type: essential hypertension Qualified Code(s): I10 - Essential (primary) hypertension - Time Spent With Patient less than 15 minutes - Subjective Interval history: Participating well with therapy. No new neurological deficits. Sutures from craniotomy intact. No sign of infection. Denies fever, pain, chills, nausea vomiting or diarrhea. Maintaining appetite and hydration. Therapy will be scheduling more family training as well as a home overnight visit for this week. - Constitutional Vitals: Temp Pulse Resp BP Pulse Ox 98.3 F 62 16 154/74 93 03/09/18 07:31 03/09/18 07:31 03/09/18 07:31 03/09/18 07:31 03/09/18 07:31 General appearance: Present: A&O X 3, pleasant, no acute distress, answers questions appropriately - Head Head exam: Present: atraumatic, normocephalic - Eye Eye exam: Present: PERRL, conjuntiva pink, sclera anicteric Pupils: Present: PERRL - Neck Neck exam general surgery: Present: supple, trachea midline. Absent: lymphadenopathy - Respiratory Respiratory exam: Present: CTAB. Absent: accessory muscle use, rales, rhonchi, wheezes - Cardiovascular Cardiovascular exam: Present: RRR, +S1, +S2. Absent: diastolic murmur, gallop, rubs, systolic murmur - GI/Abdominal GI/Abdominal exam: Present: normal bowel sounds, soft, no peritoneal signs. Absent: distended, tenderness - Extremities Exam Extremities exam: Present: warm, radial pulses palpable and symmetrical. Absent : calf tenderness, cyanotic, pedal edema - Incison Comments: Craniotomy incision well approximated. [place] intact. No drainage or sign of infection. - Neurological Exam Neurological exam: Present: CN II-XII intact, oriented X3, no focal deficits. Absent: pronater drift, facial droop, speech deficit - Skin Skin exam: Present: dry, intact Internal Medicine: Result - Labs CBC & Chem 7: 03/09/18 05:15 03/09/18 05:15 Labs: Short CBC 03/09/18 Range/Units 05:15 WBC 10.1 (4.3-11.1) K/mcL Hgb 8.0 L (12.9-16.9) g/dL Hct 24.4 L (37.5-50.1) % Plt Count 290 (140-400) K/mcL Neutrophils # 6.7 (1.6-8.9) K/mcL BMP 03/09/18 05:15 Sodium 135 L Potassium 3.5 Chloride 102 Carbon Dioxide 26 BUN 13 Creatinine 0.95 Glucose 101 Calcium 9.1 - ABG Interpretation ABG results: PT/INR, D-dimer PT 13.2 Seconds (9.4-12.1) H 03/08/18 04:40 - VTE Documentation of Mechanical Device: Graduated compression elastic hosiery Consult Discharge Plan - Plan Referrals: Erika Baca, MEDICAL BILLING CLERK [Primary Care Provider] -
[2018-03-09] MEDS: Acetaminophen 325 MG TABLET PO PRN (15:51)
--- NOTE | 2018-03-09 17:32 | Physical Med Progress Note ---
Date of Encounter: 03/09/18 Time of Encounter: 15:25 Assessment and Plan (1) CVA (cerebral vascular accident) Current Visit: No Status: Chronic Assessment and plan: Fair progress. Improving transfers. Did well with HSV.Will do overnight FTV with . Qualifiers: CVA mechanism: unspecified Qualified Code(s): I63.9 - Cerebral infarction, unspecified Physical Medicine-PN: Subj Interval history: 67 year old male s/o Craniotomy due to intracranial bleed and readmitted after he had cranioplasty done at [facility] . Pt is awake and denies any acute complains. - Constitutional Vitals: Vital Signs Temp Pulse Resp BP Pulse Ox 03/09/18 07:31 98.3 F 62 16 154/74 93 03/09/18 00:41 53 95/55 03/08/18 23:44 100/60 03/08/18 20:05 98.3 F 57 16 136/68 96 03/08/18 18:59 98.9 F 54 16 130/76 96 Intake and Output 03/09/18 03/09/18 03/09/18 07:59 15:59 23:59 Intake Total 360 / 360 Balance 360 / 360 Intake: Oral 360 / 360 Other: Meal Breakfast Percent of Meal Consumed 90% # Urine Diapers 1 Weight 88.811 kg Patient Weight 03/09/18 23:59 Weight 88.811 kg General appearance: cooperative, obese - Head Additional comments: Cranioplasty incision intact. Oozing blood just above right ear. - Eye Eye exam: Present: EOMI - ENT ENT exam: Present: mucous membranes moist - Neck Neck exam: Present: full ROM - Respiratory Respiratory exam: Present: CTAB - Cardiovascular Cardiovascular exam: Present: RRR - GI/Abdominal GI/Abdominal exam: Present: normal bowel sounds, soft - Extremities Exam Additional comments: LUE tone at wrist neutral. No CCE - Neurological Exam Neurological exam: Present: abnormal gait, alert, altered, facial droop, speech deficit. Absent: oriented X3 - Psychiatric Psychiatric exam: Present: normal affect, normal mood - Skin Additional comments: Incision head/scalp Physical Medicine-PN: Obj Data - Labs CBC & Chem 7: 03/09/18 05:15 03/09/18 05:15 Labs: Laboratory Results - last 24 hr 03/09/18 03/09/18 05:15 05:15 WBC 10.1 RBC 2.80 L Hgb 8.0 L Hct 24.4 L MCV 87.1 MCH 28.6 MCHC 32.8 RDW 14.5 Plt Count 290 MPV 9.9 Immature Gran % 0.6 Seg Neutrophils % 66.4 Lymphocytes % 21.2 Monocytes % 8.8 Eosinophils % 2.4 Basophils % 0.6 Neutrophils # 6.7 Lymphocytes # 2.1 Monocytes # 0.9 Eosinophils # 0.2 Basophils # 0.1 Sodium 135 L Potassium 3.5 Chloride 102 Carbon Dioxide 26 BUN 13 Creatinine 0.95 Est GFR ( Amer) > 60 Est GFR (Non-Af Amer) > 60 BUN/Creatinine Ratio 14 Glucose 101 Calculated Osmolality 280 Calcium 9.1 Anemia, Hyponatremia - ABG Interpretation ABG results: PT/INR, D-dimer PT 13.2 Seconds (9.4-12.1) H 03/08/18 04:40 - VTE Documentation of Mechanical Device: Graduated compression elastic hosiery Consult Discharge Plan - Plan Referrals: Erika Baca INSTRUCTIONAL TECHNOLOGY SPECIALIST [Primary Care Provider] -
[2018-03-10 06:02] LABS: Basophils # 0.1 K/mcL (0.0-0.2); Basophils % 0.5 %; Eosinophils # 0.3 K/mcL (0.0-0.6); Eosinophils % 2.8 %; Hematocrit 24.3 % (37.5-50.1); Hemoglobin 8.1 g/dL (12.9-16.9); Immature Granulocytes % 0.5 % (0-4); Lymphocytes # 1.9 K/mcL (0.6-4.6); Lymphocytes % 17.9 %; Mean Corpuscular HGB Conc 33.3 g/dL (31.6-35.5); Mean Corpuscular Hemoglobin 28.8 pg (28.0-33.3); Mean Corpuscular Volume 86.5 fL (83.0-100.0); Mean Platelet Volume 9.6 fL (9.4-12.4); Monocytes # 1.1 K/mcL (0.0-1.3); Monocytes % 9.9 %; Neutrophils # 7.3 K/mcL (1.6-8.9); Platelet Count 322 K/mcL (140-400); Red Blood Count 2.81 M/mcL (4.19-5.50); Red Cell Distribution Width 14.3 % (11.5-14.5); Segmented Neutrophils % 68.4 %
[2018-03-10] MEDS: hydrALAZINE 25 MG TABLET PO SCH ×3 (06:02→23:19)
[2018-03-10] MEDS: Acetaminophen 325 MG TABLET PO PRN ×2 (06:05→15:22)
[2018-03-10] MEDS: Sennosides 8.6 MG TABLET PO SCH (08:33)
[2018-03-10] MEDS: Famotidine 20 MG TABLET PO SCH ×2 (08:33→19:50)
[2018-03-10] MEDS: Aspirin Enteric Coated 81 MG Tablet PO SCH (08:33)
[2018-03-10] MEDS: tiZANidine 4 MG TABLET PO SCH ×3 (08:33→19:51)
--- NOTE | 2018-03-10 14:07 | Internal Med Progress Note ---
Date of Encounter: 03/10/18 Time of Encounter: 14:05 - Assessment and plan (1) CVA (cerebral vascular accident) Current Visit: No Status: Chronic Assessment and plan: Continue PT, OT, ST. Will follow progress and follow up with neurologist as scheduled. Qualifiers: CVA mechanism: unspecified Qualified Code(s): I63.9 - Cerebral infarction, unspecified (2) HTN (hypertension) Current Visit: No Status: Chronic Assessment and plan: Controlled with current medication. Monitor blood pressure. Qualifiers: Hypertension type: essential hypertension Qualified Code(s): I10 - Essential (primary) hypertension - Time Spent With Patient less than 15 minutes - Subjective Interval history: Participating well with therapy. No new neurological deficits. Sutures from craniotomy intact. No sign of infection. Denies fever, pain, chills, nausea vomiting or diarrhea. Maintaining appetite and hydration. denies pain or any new neuro deficits. - Constitutional Vitals: Temp Pulse Resp BP Pulse Ox 98.0 F 61 16 160/71 92 03/10/18 07:16 03/10/18 07:16 03/10/18 07:16 03/10/18 07:16 03/10/18 07:16 General appearance: Present: A&O X 3, pleasant, no acute distress, answers questions appropriately - Head Head exam: Present: atraumatic, normocephalic - Eye Eye exam: Present: PERRL, conjuntiva pink, sclera anicteric Pupils: Present: PERRL - Neck Neck exam general surgery: Present: supple, trachea midline. Absent: lymphadenopathy - Respiratory Respiratory exam: Present: CTAB. Absent: accessory muscle use, rales, rhonchi, wheezes - Cardiovascular Cardiovascular exam: Present: RRR, +S1, +S2. Absent: diastolic murmur, gallop, rubs, systolic murmur - GI/Abdominal GI/Abdominal exam: Present: normal bowel sounds, soft, no peritoneal signs. Absent: distended, tenderness - Extremities Exam Extremities exam: Present: warm, radial pulses palpable and symmetrical. Absent : calf tenderness, cyanotic, pedal edema - Incison Comments: Craniotomy incision intact with Ayan. Minimal amount of sanguinous drainage above ear. - Neurological Exam Neurological exam: Present: CN II-XII intact, oriented X3, no focal deficits. Absent: pronater drift, facial droop, speech deficit - Skin Skin exam: Present: dry, intact Internal Medicine: Result - Labs CBC & Chem 7: 03/10/18 05:40 03/09/18 05:15 Labs: Short CBC 03/10/18 Range/Units 05:40 WBC 10.7 (4.3-11.1) K/mcL Hgb 8.1 L (12.9-16.9) g/dL Hct 24.3 L (37.5-50.1) % Plt Count 322 (140-400) K/mcL Neutrophils # 7.3 (1.6-8.9) K/mcL - ABG Interpretation ABG results: PT/INR, D-dimer PT 13.2 Seconds (9.4-12.1) H 03/08/18 04:40 - VTE Documentation of Mechanical Device: Graduated compression elastic hosiery Consult Discharge Plan - Plan Referrals: Erika Baca DIRECTOR WEB [Primary Care Provider] -
[2018-03-10] MEDS: *HR* OxyCODONE/APAP 5/325 TABLET PO PRN (19:51)
[2018-03-11] MEDS: hydrALAZINE 25 MG TABLET PO SCH ×2 (05:09→15:21)
[2018-03-11 05:44] LABS: Hematocrit 24.4 % (37.5-50.1); Mean Corpuscular HGB Conc 32.8 g/dL (31.6-35.5); Mean Corpuscular Hemoglobin 28.5 pg (28.0-33.3); Mean Corpuscular Volume 86.8 fL (83.0-100.0); Mean Platelet Volume 9.5 fL (9.4-12.4); Platelet Count 339 K/mcL (140-400); Red Blood Count 2.81 M/mcL (4.19-5.50); Red Cell Distribution Width 14.5 % (11.5-14.5)
[2018-03-11 05:59] LABS: BUN/Creatinine Ratio 12 (6-26); Blood Urea Nitrogen 11 mg/dL (8-23); Calcium 8.9 mg/dL (8.6-10.3); Carbon Dioxide 26 mEq/L (23-29); Chloride 102 mEq/L (98-107); Glucose 99 mg/dL (70-105); Magnesium 1.7 mg/dL (1.6-2.6); Osmolality,Calculated 279 (280-300); Potassium 3.2 mEq/L (3.5-5.1); Sodium 135 mEq/L (136-145); eGFR For African Americans > 60 (> 60); eGFR For Non-African Americans > 60 (> 60)
[2018-03-11] MEDS: Sennosides 8.6 MG TABLET PO SCH (08:39)
[2018-03-11] MEDS: tiZANidine 4 MG TABLET PO SCH ×3 (08:39→20:49)
[2018-03-11] MEDS: Aspirin Enteric Coated 81 MG Tablet PO SCH (08:39)
[2018-03-11] MEDS: Famotidine 20 MG TABLET PO SCH ×2 (08:39→20:46)
--- NOTE | 2018-03-11 11:57 | Internal Med Progress Note ---
Date of Encounter: 03/11/18 Time of Encounter: 11:55 - Assessment and plan (1) CVA (cerebral vascular accident) Current Visit: Yes Status: Chronic Assessment and plan: Continue PT, OT, ST. Will follow progress and follow up with neurologist as scheduled. Qualifiers: CVA mechanism: unspecified Qualified Code(s): I63.9 - Cerebral infarction, unspecified (2) HTN (hypertension) Current Visit: No Status: Chronic Assessment and plan: Controlled with current medication. Monitor blood pressure. Qualifiers: Hypertension type: essential hypertension Qualified Code(s): I10 - Essential (primary) hypertension (3) Hypokalemia Current Visit: Yes Status: Acute Assessment and plan: supplemet added. will repeat lab. (4) Hypomagnesemia Current Visit: Yes Status: Acute Assessment and plan: supplement added. will repeat lab in am. - Time Spent With Patient less than 15 minutes - Subjective Interval history: Participating well with therapy. No new neurological deficits. Sutures from craniotomy intact. No sign of infection. Denies fever, pain, chills, nausea vomiting or diarrhea. Maintaining appetite and hydration. denies pain or any new neuro deficits. present. scheduled for home overnight trial tomorrow. - Constitutional Vitals: Temp Pulse Resp BP Pulse Ox 97.7 F 60 16 155/73 97 03/11/18 08:00 03/11/18 08:00 03/11/18 08:00 03/11/18 08:00 03/11/18 08:00 General appearance: Present: A&O X 3, pleasant, no acute distress, answers questions appropriately - Head Head exam: Present: atraumatic, normocephalic - Eye Eye exam: Present: PERRL, conjuntiva pink, sclera anicteric Pupils: Present: PERRL - Neck Neck exam general surgery: Present: supple, trachea midline. Absent: lymphadenopathy - Respiratory Respiratory exam: Present: CTAB. Absent: accessory muscle use, rales, rhonchi, wheezes - Cardiovascular Cardiovascular exam: Present: RRR, +S1, +S2. Absent: diastolic murmur, gallop, rubs, systolic murmur - GI/Abdominal GI/Abdominal exam: Present: normal bowel sounds, soft, no peritoneal signs. Absent: distended, tenderness - Extremities Exam Extremities exam: Present: warm, radial pulses palpable and symmetrical. Absent : calf tenderness, cyanotic, pedal edema Additional comments: right hemiplegia - Incison Comments: well approcimated, ryan intact. scabbed, dried drainage to incision above ear. - Neurological Exam Neurological exam: Present: CN II-XII intact, oriented X3, no focal deficits. Absent: pronater drift, facial droop, speech deficit - Skin Skin exam: Present: dry, intact Internal Medicine: Result - Labs CBC & Chem 7: 03/11/18 05:30 03/11/18 05:30 Labs: Short CBC 03/11/18 Range/Units 05:30 WBC 9.2 (4.3-11.1) K/mcL Hgb 8.0 L (12.9-16.9) g/dL Hct 24.4 L (37.5-50.1) % Plt Count 339 (140-400) K/mcL BMP 03/11/18 05:30 Sodium 135 L Potassium 3.2 L Chloride 102 Carbon Dioxide 26 BUN 11 Creatinine 0.92 Glucose 99 Calcium 8.9 - ABG Interpretation ABG results: PT/INR, D-dimer PT 13.2 Seconds (9.4-12.1) H 03/08/18 04:40 - VTE Documentation of Mechanical Device: Graduated compression elastic hosiery Consult Discharge Plan - Plan Referrals: Erika Baca CNP [Primary Care Provider] -
[2018-03-11] MEDS: Magnesium Oxide 400 MG TABLET PO SCH ×2 (15:21→20:46)
--- NOTE | 2018-03-11 15:55 | Physical Med Progress Note ---
Date of Encounter: 03/11/18 Time of Encounter: 14:00 Assessment and Plan (1) CVA (cerebral vascular accident) Current Visit: Yes Status: Chronic Assessment and plan: Slow progress due to cognitive impairment. Severe spasticity in LUE and LLE. Will increase antispasticity drugs. Qualifiers: CVA mechanism: unspecified Qualified Code(s): I63.9 - Cerebral infarction, unspecified Physical Medicine-PN: Subj Interval history: Having left hip and shoulder pain. - Constitutional Vitals: Vital Signs Temp Pulse Resp BP Pulse Ox 03/11/18 08:00 97.7 F 60 16 155/73 97 03/10/18 19:27 98.3 F 58 16 133/72 97 Intake and Output 03/10/18 03/11/18 03/11/18 23:59 07:59 15:59 Intake Total 240 / 240 Balance 240 / 240 Intake: Oral 240 / 240 Other: Meal Breakfast Percent of Meal Consumed 50% Stool Size Moderate Stool Consistency loose soft # Urine Diapers 1 # Bowel Movements 1 General appearance: average body habitus, cooperative, no acute distress - Head Additional comments: Incision looks good. Scabbing above right ear. No further bleeding. - Respiratory Respiratory exam: Present: CTAB - Cardiovascular Cardiovascular exam: Present: RRR - GI/Abdominal GI/Abdominal exam: Present: normal bowel sounds, soft - Extremities Exam Additional comments: Severe tone in left arm and left leg. No movement in left UE. Trace in LLE> - Neurological Exam Neurological exam: Present: abnormal gait, alert, altered, motor sensory deficit , facial droop, speech deficit. Absent: oriented X3 - Psychiatric Psychiatric exam: Present: normal affect, normal mood - Skin Additional comments: Large curvilinear scalp incision. Physical Medicine-PN: Obj Data - Labs CBC & Chem 7: 03/11/18 05:30 03/11/18 05:30 Labs: Laboratory Results - last 24 hr 03/11/18 03/11/18 05:30 05:30 WBC 9.2 RBC 2.81 L Hgb 8.0 L Hct 24.4 L MCV 86.8 MCH 28.5 MCHC 32.8 RDW 14.5 Plt Count 339 MPV 9.5 Sodium 135 L Potassium 3.2 L Chloride 102 Carbon Dioxide 26 BUN 11 Creatinine 0.92 Est GFR ( Amer) > 60 Est GFR (Non-Af Amer) > 60 BUN/Creatinine Ratio 12 Glucose 99 Calculated Osmolality 279 L Calcium 8.9 Magnesium 1.7 Anemia, Hypokalemia, Hyponatremia - ABG Interpretation ABG results: PT/INR, D-dimer PT 13.2 Seconds (9.4-12.1) H 03/08/18 04:40 - VTE Documentation of Mechanical Device: Graduated compression elastic hosiery Consult Discharge Plan - Plan Referrals: Erika Baca, BUSINESS DEVELOPMENT COORDINATOR [Primary Care Provider] -
[2018-03-11] MEDS: Acetaminophen 325 MG TABLET PO PRN (20:49)
[2018-03-11] MEDS ORDERED: Baclofen 10 MG TABLET PO SCH (21:00)
[2018-03-12] MEDS: hydrALAZINE 25 MG TABLET PO SCH ×4 (00:34→23:13)
[2018-03-12] MEDS: Magnesium Oxide 400 MG TABLET PO SCH ×2 (08:31→23:12)
[2018-03-12] MEDS: Acetaminophen 325 MG TABLET PO PRN (08:31)
[2018-03-12] MEDS: Famotidine 20 MG TABLET PO SCH ×2 (08:31→23:12)
[2018-03-12] MEDS: tiZANidine 4 MG TABLET PO SCH ×3 (08:32→23:12)
[2018-03-12] MEDS: Sennosides 8.6 MG TABLET PO SCH (08:32)
[2018-03-12] MEDS: Aspirin Enteric Coated 81 MG Tablet PO SCH (08:33)
[2018-03-12 10:05] LABS: BUN/Creatinine Ratio 10 (6-26); Blood Urea Nitrogen 10 mg/dL (8-23); Calcium 9.7 mg/dL (8.6-10.3); Carbon Dioxide 25 mEq/L (23-29); Chloride 105 mEq/L (98-107); Glucose 105 mg/dL (70-105); Magnesium 1.9 mg/dL (1.6-2.6); Osmolality,Calculated 283 (280-300); Potassium 4.2 mEq/L (3.5-5.1); Sodium 137 mEq/L (136-145); eGFR For African Americans > 60 (> 60); eGFR For Non-African Americans > 60 (> 60)
--- NOTE | 2018-03-12 13:37 | Internal Med Progress Note ---
Date of Encounter: 03/12/18 Time of Encounter: 13:34 - Assessment and plan (1) CVA (cerebral vascular accident) Current Visit: Yes Status: Chronic Assessment and plan: No acute issues. Patient continues with left hemiplegia and no acute neurological deficits were noted. Patient is craniectomy surgical lines remained dry and intact. Patient continues progress well during physical therapy and is being prepared for possible discharge in the upcoming week. We will continue with current medications and continue with PT/OT Qualifiers: CVA mechanism: unspecified Qualified Code(s): I63.9 - Cerebral infarction, unspecified (2) HTN (hypertension) Current Visit: No Status: Chronic Assessment and plan: Vital signs are stable. We will continue with current medications. Qualifiers: Hypertension type: essential hypertension Qualified Code(s): I10 - Essential (primary) hypertension - Time Spent With Patient less than 15 minutes - Subjective Interval history: Patient appears relaxed and denies any discomforts or shortness breath. Patient reportedly continues to aggress well with therapy and is being prepared for discharge in the upcoming week. Nurse reports patient has made statements concerning his appearance due to the surgical replacement of the craniectomy flap. Patient made no complaints during therapy. - Constitutional Vitals: Temp Pulse Resp BP Pulse Ox 97.6 F 58 16 149/74 96 03/12/18 07:35 03/12/18 07:35 03/12/18 07:35 03/12/18 07:35 03/12/18 07:35 General appearance: Present: A&O X 3, pleasant, no acute distress, answers questions appropriately - Head Head exam: Present: atraumatic, normocephalic - Eye Eye exam: Present: PERRL, conjuntiva pink, sclera anicteric Pupils: Present: PERRL - Neck Neck exam general surgery: Present: supple, trachea midline. Absent: lymphadenopathy - Respiratory Respiratory exam: Present: CTAB. Absent: accessory muscle use, rales, rhonchi, wheezes - Cardiovascular Cardiovascular exam: Present: RRR, +S1, +S2. Absent: diastolic murmur, gallop, rubs, systolic murmur - GI/Abdominal GI/Abdominal exam: Present: normal bowel sounds, soft, no peritoneal signs. Absent: distended, tenderness - Extremities Exam Extremities exam: Present: warm, radial pulses palpable and symmetrical. Absent : calf tenderness, cyanotic, pedal edema - Neurological Exam Neurological exam: Present: CN II-XII intact, oriented X3. Absent: pronater drift, facial droop, speech deficit Additional comments: Patient continues with left hemiplegia. Craniectomy surgical lines appear healthy and intact - Skin Skin exam: Present: dry, intact Internal Medicine: Result - Labs CBC & Chem 7: 03/11/18 05:30 03/12/18 07:43 Labs: BMP 03/12/18 07:43 Sodium 137 Potassium 4.2 Chloride 105 Carbon Dioxide 25 BUN 10 Creatinine 1.02 Glucose 105 Calcium 9.7 - ABG Interpretation ABG results: PT/INR, D-dimer PT 13.2 Seconds (9.4-12.1) H 03/08/18 04:40 - VTE Documentation of Mechanical Device: Graduated compression elastic hosiery Consult Discharge Plan - Plan Referrals: Erika Baca CHARGE ENTRY [Primary Care Provider] -
--- NOTE | 2018-03-13 11:14 | Internal Med Progress Note ---
Date of Encounter: 03/13/18 Time of Encounter: 11:14 - Assessment and plan (1) CVA (cerebral vascular accident) Current Visit: Yes Status: Chronic Assessment and plan: No acute issues. Patient continues with left hemiplegia and no acute neurological deficits were noted. Patient is craniectomy surgical lines remained dry and intact. Patient was home overnight for a overnight visit. Patient reportedly experienced a mechanical fall during transfer from chair, but no obvious injuries noted. We will continue with current plan of care. Patient to be evaluated by PT/OT. Qualifiers: CVA mechanism: unspecified Qualified Code(s): I63.9 - Cerebral infarction, unspecified (2) HTN (hypertension) Current Visit: No Status: Chronic Assessment and plan: Vital signs are stable. We will continue with current medications. Qualifiers: Hypertension type: essential hypertension Qualified Code(s): I10 - Essential (primary) hypertension (3) Urinary frequency Current Visit: Yes Status: Acute Assessment and plan: Family reports patient experienced urinary frequency last evening. We will have nursing perform a bladder scan and will send urine for urinalysis. Patient has been afebrile and denies any dysuria - Time Spent With Patient less than 15 minutes - Subjective Interval history: Patient has returned from overnight visit at home. Patient reportedly expressed a mechanical fall last evening at home during transfer from chair. No obvious injuries noted and patient denies any discomforts. Family did relate that patient experiencing urinary frequency last evening. Afebrile. - Constitutional Vitals: Temp Pulse Resp BP Pulse Ox 97.6 F 58 16 149/74 96 03/12/18 07:35 03/12/18 07:35 03/12/18 07:35 03/12/18 07:35 03/12/18 07:35 General appearance: Present: A&O X 3, pleasant, no acute distress, answers questions appropriately - Head Head exam: Present: atraumatic, normocephalic Additional comments: Surgical incision for right craniectomy site appears to be healing well - Eye Eye exam: Present: PERRL, conjuntiva pink, sclera anicteric Pupils: Present: PERRL - Neck Neck exam general surgery: Present: supple, trachea midline. Absent: lymphadenopathy - Respiratory Respiratory exam: Present: CTAB. Absent: accessory muscle use, rales, rhonchi, wheezes - Cardiovascular Cardiovascular exam: Present: RRR, +S1, +S2. Absent: diastolic murmur, gallop, rubs, systolic murmur - GI/Abdominal GI/Abdominal exam: Present: normal bowel sounds, soft, no peritoneal signs. Absent: distended, tenderness - Extremities Exam Extremities exam: Present: warm, radial pulses palpable and symmetrical. Absent : calf tenderness, cyanotic, pedal edema - Neurological Exam Neurological exam: Present: CN II-XII intact, oriented X3. Absent: pronater drift, facial droop, speech deficit Additional comments: Patient continues with left hemiplegia. - Skin Skin exam: Present: dry, intact Internal Medicine: Result - Labs CBC & Chem 7: 03/11/18 05:30 03/12/18 07:43 - ABG Interpretation ABG results: PT/INR, D-dimer PT 13.2 Seconds (9.4-12.1) H 03/08/18 04:40 - VTE Documentation of Mechanical Device: Graduated compression elastic hosiery Consult Discharge Plan - Plan Referrals: Erika Baca ORCHARD MANAGER [Primary Care Provider] -
[2018-03-13] MEDS: Aspirin Enteric Coated 81 MG Tablet PO SCH (16:31)
[2018-03-13] MEDS: hydrALAZINE 25 MG TABLET PO SCH ×3 (16:31→23:39)
[2018-03-13] MEDS: tiZANidine 4 MG TABLET PO SCH ×3 (16:32→19:44)
[2018-03-13] MEDS: Sennosides 8.6 MG TABLET PO SCH (16:32)
[2018-03-13] MEDS: Magnesium Oxide 400 MG TABLET PO SCH ×2 (16:32→19:43)
[2018-03-13] MEDS: Famotidine 20 MG TABLET PO SCH ×2 (16:32→19:43)
[2018-03-13] MEDS: Acetaminophen 325 MG TABLET PO PRN (19:43)
[2018-03-14 05:39] LABS: Hematocrit 26.8 % (37.5-50.1); Hemoglobin 8.6 g/dL (12.9-16.9); Mean Corpuscular HGB Conc 32.1 g/dL (31.6-35.5); Mean Corpuscular Hemoglobin 28.2 pg (28.0-33.3); Mean Corpuscular Volume 87.9 fL (83.0-100.0); Mean Platelet Volume 9.9 fL (9.4-12.4); Platelet Count 421 K/mcL (140-400); Red Blood Count 3.05 M/mcL (4.19-5.50); Red Cell Distribution Width 14.7 % (11.5-14.5)
[2018-03-14 06:00] LABS: Alanine Aminotransferase 14 Units/L (7-52); Albumin 3.3 g/dL (3.5-5.7); Alkaline Phosphatase 61 Units/L (34-104); Aspartate Amino Transferase 17 Units/L (13-39); BUN/Creatinine Ratio 11 (6-26); Bilirubin,Total 0.4 mg/dL (0.3-1.0); Blood Urea Nitrogen 13 mg/dL (8-23); Calcium 9.3 mg/dL (8.6-10.3); Carbon Dioxide 26 mEq/L (23-29); Chloride 102 mEq/L (98-107); Globulin 3.4 g/dL (2.4-3.5); Glucose 97 mg/dL (70-105); Magnesium 1.8 mg/dL (1.6-2.6); Osmolality,Calculated 282 (280-300); Potassium 3.7 mEq/L (3.5-5.1); Sodium 136 mEq/L (136-145); Total Protein 6.7 g/dL (6.4-8.9); eGFR For African Americans > 60 (> 60); eGFR For Non-African Americans > 60 (> 60)
[2018-03-14] MEDS: Magnesium Oxide 400 MG TABLET PO SCH ×2 (08:58→20:40)
[2018-03-14] MEDS: Sennosides 8.6 MG TABLET PO SCH (08:58)
[2018-03-14] MEDS: hydrALAZINE 25 MG TABLET PO SCH ×3 (08:58→22:49)
[2018-03-14] MEDS: Aspirin Enteric Coated 81 MG Tablet PO SCH (08:58)
[2018-03-14] MEDS: tiZANidine 4 MG TABLET PO SCH ×3 (08:58→20:41)
[2018-03-14] MEDS: Famotidine 20 MG TABLET PO SCH ×2 (08:58→20:41)
--- NOTE | 2018-03-14 14:05 | Internal Med Progress Note ---
Date of Encounter: 03/14/18 Time of Encounter: 14:03 - Assessment and plan (1) Stroke determined by clinical assessment Current Visit: No Status: Acute Assessment and plan: Continue therapies as planned. To go home, late next week. (2) HTN (hypertension) Current Visit: No Status: Chronic Assessment and plan: Clinically stable. We will continue home regimen and follow. Qualifiers: Hypertension type: essential hypertension Qualified Code(s): I10 - Essential (primary) hypertension (3) Hypothyroid Current Visit: No Status: Chronic Assessment and plan: Clinically stable. We will continue home regimen and follow. Will need follow- up TSH in another month or so. Qualifiers: Hypothyroidism type: unspecified Qualified Code(s): E03.9 - Hypothyroidism , unspecified (4) Diabetes type 2, controlled Current Visit: No Status: Chronic Assessment and plan: Clinically stable. We will continue home regimen and follow. We will continue to watch with sliding scale insulin, as before. 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 We will continue home regimen and follow. No acute problems but will need to be followed up, a few months down the road. - Subjective Interval history: Patient without acute issue. Patient and deny problems. States he slept well last night. Would like to have lidocaine patch for right hip pain, again. - Constitutional Vitals: Temp Pulse Resp BP Pulse Ox 98.5 F 52 16 151/76 98 03/14/18 07:04 03/14/18 07:04 03/14/18 07:04 03/14/18 07:04 03/14/18 07:04 General appearance: Present: pleasant, answers questions appropriately Exam: Examination: (Except as mentioned above): General: In no apparent distress. Alert and oriented 3. Nondiaphoretic. Head: Atraumatic and normocephalic. Respiratory: No use of accessory muscles. Lungs are clear throughout. Normal airflow. Cardiovascular: Regular rate and rhythm without murmur appreciated. Abdomen: Bowel sounds are normal. No hepatosplenomegaly mass or tenderness appreciated. Obese and therefore difficult to palpate deeply. Extremities: No cyanosis clubbing or edema. Skin: Warm and non-diaphoretic with no new lesions noted. Internal Medicine: Result - Labs CBC & Chem 7: 03/14/18 04:45 03/14/18 04:45 Labs: Short CBC 03/14/18 Range/Units 04:45 WBC 12.6 H (4.3-11.1) K/mcL Hgb 8.6 L (12.9-16.9) g/dL Hct 26.8 L (37.5-50.1) % Plt Count 421 H (140-400) K/mcL BMP 03/14/18 04:45 Sodium 136 Potassium 3.7 Chloride 102 Carbon Dioxide 26 BUN 13 Creatinine 1.15 Glucose 97 Calcium 9.3 Liver Function 03/14/18 Range/Units 04:45 Total Bilirubin 0.4 (0.3-1.0) mg/dL AST 17 (13-39) Units/L ALT 14 (7-52) Units/L Alkaline Phosphatase 61 (34-104) Units/L Albumin 3.3 L (3.5-5.7) g/dL - ABG Interpretation ABG results: PT/INR, D-dimer PT 13.2 Seconds (9.4-12.1) H 03/08/18 04:40 - VTE Documentation of Mechanical Device: Graduated compression elastic hosiery Consult Discharge Plan - Plan Referrals: Erika Baca CNP [Primary Care Provider] -
[2018-03-14 21:03] LABS: Bilirubin,Urine Negative (Negative); Blood,Urine Negative (Negative); Clarity,Urine Clear (Clear); Color,Urine Yellow (Yellow); Glucose,Urine (UA) Normal (Normal); Ketones,Urine Negative (Negative); Leukocyte Esterase,Urine Negative (Negative); Nitrite,Urine Negative (Negative); Protein,Urine Trace mg/dL (Neg-Trace); Urobilinogen,Urine Normal (Normal)
[2018-03-15] MEDS: hydrALAZINE 25 MG TABLET PO SCH ×3 (06:06→22:56)
[2018-03-15] MEDS: Magnesium Oxide 400 MG TABLET PO SCH ×2 (09:13→19:27)
[2018-03-15] MEDS: Sennosides 8.6 MG TABLET PO SCH (09:13)
[2018-03-15] MEDS: Aspirin Enteric Coated 81 MG Tablet PO SCH (09:13)
[2018-03-15] MEDS: Famotidine 20 MG TABLET PO SCH ×2 (09:13→19:28)
[2018-03-15] MEDS: tiZANidine 4 MG TABLET PO SCH ×3 (09:13→19:28)
[2018-03-15] MEDS: Acetaminophen 325 MG TABLET PO PRN (19:28)
[2018-03-16] MEDS: hydrALAZINE 25 MG TABLET PO SCH ×3 (06:09→23:06)
[2018-03-16 07:41] LABS: Basophils # 0.1 K/mcL (0.0-0.2); Basophils % 0.7 %; Eosinophils # 0.4 K/mcL (0.0-0.6); Eosinophils % 3.8 %; Hematocrit 27.1 % (37.5-50.1); Hemoglobin 8.9 g/dL (12.9-16.9); Immature Granulocytes % 0.5 % (0-4); Lymphocytes # 1.8 K/mcL (0.6-4.6); Lymphocytes % 19.1 %; Mean Corpuscular HGB Conc 32.8 g/dL (31.6-35.5); Mean Corpuscular Hemoglobin 28.3 pg (28.0-33.3); Mean Platelet Volume 9.8 fL (9.4-12.4); Monocytes # 0.8 K/mcL (0.0-1.3); Monocytes % 7.8 %; Neutrophils # 6.6 K/mcL (1.6-8.9); Platelet Count 403 K/mcL (140-400); Red Blood Count 3.15 M/mcL (4.19-5.50); Red Cell Distribution Width 14.6 % (11.5-14.5); Segmented Neutrophils % 68.1 %
[2018-03-16 08:04] LABS: BUN/Creatinine Ratio 10 (6-26); Blood Urea Nitrogen 10 mg/dL (8-23); Calcium 9.3 mg/dL (8.6-10.3); Carbon Dioxide 25 mEq/L (23-29); Chloride 101 mEq/L (98-107); Glucose 102 mg/dL (70-105); Osmolality,Calculated 277 (280-300); Potassium 4.1 mEq/L (3.5-5.1); Sodium 134 mEq/L (136-145); eGFR For African Americans > 60 (> 60); eGFR For Non-African Americans > 60 (> 60)
[2018-03-16] MEDS: Sennosides 8.6 MG TABLET PO SCH (08:14)
[2018-03-16] MEDS: Famotidine 20 MG TABLET PO SCH ×2 (08:14→21:10)
[2018-03-16] MEDS: Aspirin Enteric Coated 81 MG Tablet PO SCH (08:14)
[2018-03-16] MEDS: tiZANidine 4 MG TABLET PO SCH ×3 (08:14→21:10)
[2018-03-16] MEDS: Magnesium Oxide 400 MG TABLET PO SCH ×2 (08:14→21:10)
--- NOTE | 2018-03-16 10:39 | Internal Med Progress Note ---
Date of Encounter: 03/16/18 Time of Encounter: 10:37 - Assessment and plan (1) CVA (cerebral vascular accident) Current Visit: Yes Status: Chronic Assessment and plan: No acute issues. Patient continues with left hemiplegia and no acute neurological deficits were noted. Patient is craniectomy suture lines remained dry and intact. We will continue with current plan of care. Patient to be evaluated by PT/OT. Qualifiers: CVA mechanism: unspecified Qualified Code(s): I63.9 - Cerebral infarction, unspecified (2) HTN (hypertension) Current Visit: No Status: Chronic Assessment and plan: Vital signs are stable. We will continue with current medications. Qualifiers: Hypertension type: essential hypertension Qualified Code(s): I10 - Essential (primary) hypertension - Time Spent With Patient less than 15 minutes - Subjective Interval history: Patient appears relaxed and currently has no complaints of discomforts or shortness of breath. - Constitutional Vitals: Temp Pulse Resp BP Pulse Ox 98.2 F 59 16 152/72 98 03/16/18 07:00 03/16/18 07:00 03/16/18 07:00 03/16/18 07:00 03/16/18 07:00 General appearance: Present: A&O X 3, pleasant, answers questions appropriately - Head Head exam: Present: atraumatic, normocephalic - Eye Eye exam: Present: PERRL, conjuntiva pink, sclera anicteric Pupils: Present: PERRL - Neck Neck exam general surgery: Present: supple, trachea midline. Absent: lymphadenopathy - Respiratory Respiratory exam: Present: CTAB. Absent: accessory muscle use, rales, rhonchi, wheezes - Cardiovascular Cardiovascular exam: Present: RRR, +S1, +S2. Absent: diastolic murmur, gallop, rubs, systolic murmur - GI/Abdominal GI/Abdominal exam: Present: normal bowel sounds, soft, no peritoneal signs. Absent: distended, tenderness - Extremities Exam Extremities exam: Present: warm, radial pulses palpable and symmetrical. Absent : calf tenderness, cyanotic, pedal edema - Neurological Exam Neurological exam: Present: CN II-XII intact, oriented X3. Absent: pronater drift, facial droop, speech deficit Additional comments: Patient continues with left hemiplegia. Noted some delay or word search in response to simple questions. Suture line to right craniectomy site appears healthy and intact - Skin Skin exam: Present: dry, intact Internal Medicine: Result - Labs CBC & Chem 7: 03/16/18 07:07 03/16/18 07:07 Labs: Short CBC 03/16/18 Range/Units 07:07 WBC 9.6 (4.3-11.1) K/mcL Hgb 8.9 L (12.9-16.9) g/dL Hct 27.1 L (37.5-50.1) % Plt Count 403 H (140-400) K/mcL Neutrophils # 6.6 (1.6-8.9) K/mcL BMP 03/16/18 07:07 Sodium 134 L Potassium 4.1 Chloride 101 Carbon Dioxide 25 BUN 10 Creatinine 1.03 Glucose 102 Calcium 9.3 - ABG Interpretation ABG results: PT/INR, D-dimer PT 13.2 Seconds (9.4-12.1) H 03/08/18 04:40 - VTE Documentation of Mechanical Device: Graduated compression elastic hosiery Consult Discharge Plan - Plan Referrals: Erika Baca, PULMONARY PHYSICAL THERAPIST [Primary Care Provider] -
--- NOTE | 2018-03-16 14:07 | Internal Med Progress Note ---
Date of Encounter: 03/15/18 Time of Encounter: 16:30 - Assessment and plan (1) Stroke determined by clinical assessment Current Visit: No Status: Acute Assessment and plan: Continue therapies as planned. Plan discharge next week, concerned about his long-term care. seems to understand. (2) HTN (hypertension) Current Visit: No Status: Chronic Assessment and plan: Clinically stable. We will continue home regimen and follow. Qualifiers: Hypertension type: essential hypertension Qualified Code(s): I10 - Essential (primary) hypertension (3) Hypothyroid Current Visit: No Status: Chronic Assessment and plan: Clinically stable. We will continue home regimen and follow. Will need follow- up TSH in another month or so. Qualifiers: Hypothyroidism type: unspecified Qualified Code(s): E03.9 - Hypothyroidism , unspecified (4) Diabetes type 2, controlled Current Visit: No Status: Chronic Assessment and plan: Clinically stable. We will continue home regimen and follow. We will continue to watch with sliding scale insulin, as before. 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 We will continue home regimen and follow. No acute problems but will need to be followed up, a few months down the road. - Time Spent With Patient 25 - 35 minutes - Subjective Interval history: Patient without acute issue. Patient has no complaint of chest discomfort, dyspnea, orthopnea, palpitations, nausea or vomiting, constipation or diarrhea, other changes in bowel habits, difficulty with urination, rash or itching, or other new complaints, except as mentioned above. Review of systems is otherwise unremarkable.. - Constitutional Vitals: Temp Pulse Resp BP Pulse Ox 98.2 F 59 16 152/72 98 03/16/18 07:00 03/16/18 07:00 03/16/18 07:00 03/16/18 07:00 03/16/18 07:00 General appearance: Present: pleasant, answers questions appropriately Exam: Examination: (Except as mentioned above): General: In no apparent distress. Alert and oriented 3. Nondiaphoretic. Head: Atraumatic and normocephalic. Respiratory: No use of accessory muscles. Lungs are clear throughout. Normal airflow. Cardiovascular: Regular rate and rhythm without murmur appreciated. Abdomen: Bowel sounds are normal. No hepatosplenomegaly mass or tenderness appreciated. Obese and therefore difficult to palpate deeply. Extremities: No cyanosis clubbing or edema. Skin: Warm and non-diaphoretic with no new lesions noted. Still with dense left hemiparesis. Internal Medicine: Result - Labs CBC & Chem 7: 03/16/18 07:07 03/16/18 07:07 Labs: Short CBC 03/16/18 Range/Units 07:07 WBC 9.6 (4.3-11.1) K/mcL Hgb 8.9 L (12.9-16.9) g/dL Hct 27.1 L (37.5-50.1) % Plt Count 403 H (140-400) K/mcL Neutrophils # 6.6 (1.6-8.9) K/mcL BMP 03/16/18 07:07 Sodium 134 L Potassium 4.1 Chloride 101 Carbon Dioxide 25 BUN 10 Creatinine 1.03 Glucose 102 Calcium 9.3 - ABG Interpretation ABG results: PT/INR, D-dimer PT 13.2 Seconds (9.4-12.1) H 03/08/18 04:40 - VTE Documentation of Mechanical Device: Graduated compression elastic hosiery Consult Discharge Plan - Plan Referrals: Erika Baca CNP [Primary Care Provider] -
--- NOTE | 2018-03-16 16:19 | Physical Med Progress Note ---
Date of Encounter: 03/16/18 Time of Encounter: 14:30 Assessment and Plan (1) CVA (cerebral vascular accident) Current Visit: Yes Status: Chronic Assessment and plan: Slow progress. Home visit did not go well. wants to take him home but I think his level of assistance is too high. Qualifiers: CVA mechanism: unspecified Qualified Code(s): I63.9 - Cerebral infarction, unspecified Physical Medicine-PN: Subj Interval history: Left shoulder, hand pain with stretching. - Constitutional Vitals: Vital Signs Temp Pulse Resp BP Pulse Ox 03/16/18 15:33 90 158/78 03/16/18 07:00 98.2 F 59 16 152/72 98 03/15/18 20:10 97.5 F L 65 16 153/76 98 Intake and Output 03/16/18 03/16/18 03/16/18 07:59 15:59 23:59 Intake Total 360 / 360 Balance 360 / 360 Intake: Oral 360 / 360 Other: Meal Breakfast Percent of Meal Consumed 100% # Urine Diapers 1 Weight 88.042 kg Patient Weight 03/16/18 23:59 Weight 88.042 kg General appearance: cooperative, no acute distress, obese - Head Additional comments: Curvilinear right scalp incision. Well approximated with suture. No erythema. No evidence of infection. - ENT ENT exam: Present: mucous membranes moist - Neck Neck exam: Present: full ROM - Respiratory Respiratory exam: Present: CTAB - Cardiovascular Cardiovascular exam: Present: RRR - GI/Abdominal GI/Abdominal exam: Present: normal bowel sounds, soft - Extremities Exam Additional comments: Significant tone on right side. LUE flaccid. - Neurological Exam Neurological exam: Present: abnormal gait, alert, altered, motor sensory deficit , speech deficit. Absent: CN II-XII intact - Psychiatric Psychiatric exam: Present: normal affect, normal mood - Skin Additional comments: Sutures on scalp. Physical Medicine-PN: Obj Data - Labs CBC & Chem 7: 03/16/18 07:07 03/16/18 07:07 Labs: Laboratory Results - last 24 hr 03/16/18 03/16/18 07:07 07:07 WBC 9.6 RBC 3.15 L Hgb 8.9 L Hct 27.1 L MCV 86.0 MCH 28.3 MCHC 32.8 RDW 14.6 H Plt Count 403 H MPV 9.8 Immature Gran % 0.5 Seg Neutrophils % 68.1 Lymphocytes % 19.1 Monocytes % 7.8 Eosinophils % 3.8 Basophils % 0.7 Neutrophils # 6.6 Lymphocytes # 1.8 Monocytes # 0.8 Eosinophils # 0.4 Basophils # 0.1 Sodium 134 L Potassium 4.1 Chloride 101 Carbon Dioxide 25 BUN 10 Creatinine 1.03 Est GFR ( Amer) > 60 Est GFR (Non-Af Amer) > 60 BUN/Creatinine Ratio 10 Glucose 102 Calculated Osmolality 277 L Calcium 9.3 Anemia, Hyonatremia - ABG Interpretation ABG results: PT/INR, D-dimer PT 13.2 Seconds (9.4-12.1) H 03/08/18 04:40 - VTE Documentation of Mechanical Device: Graduated compression elastic hosiery Consult Discharge Plan - Plan Referrals: Erika Baca, CAR RENTAL CLERK [Primary Care Provider] -
[2018-03-16] MEDS: Acetaminophen 325 MG TABLET PO PRN (21:11)
[2018-03-17] MEDS: hydrALAZINE 25 MG TABLET PO SCH ×3 (06:35→21:36)
[2018-03-17] MEDS: Famotidine 20 MG TABLET PO SCH ×2 (09:42→21:35)
[2018-03-17] MEDS: Aspirin Enteric Coated 81 MG Tablet PO SCH (09:42)
[2018-03-17] MEDS: Sennosides 8.6 MG TABLET PO SCH (09:42)
[2018-03-17] MEDS: tiZANidine 4 MG TABLET PO SCH ×3 (09:42→21:35)
[2018-03-17] MEDS: Magnesium Oxide 400 MG TABLET PO SCH ×2 (09:42→21:35)
--- NOTE | 2018-03-17 11:08 | Internal Med Progress Note ---
Date of Encounter: 03/17/18 Time of Encounter: 11:04 - Assessment and plan (1) CVA (cerebral vascular accident) Current Visit: Yes Status: Chronic Assessment and plan: Continue PT, OT, ST. Will follow progress and follow up with neurologist as scheduled. Qualifiers: CVA mechanism: unspecified Qualified Code(s): I63.9 - Cerebral infarction, unspecified (2) HTN (hypertension) Current Visit: No Status: Chronic Assessment and plan: Controlled with current medication. Monitor blood pressure. Qualifiers: Hypertension type: essential hypertension Qualified Code(s): I10 - Essential (primary) hypertension - Time Spent With Patient less than 15 minutes - Subjective Interval history: Participating well with therapy. No new neurological deficits. Sutures from craniotomy intact. No sign of infection. Denies fever, pain, chills, nausea vomiting or diarrhea. Maintaining appetite and hydration. denies pain or any new neuro deficits. Left hand swelling. Probable from dependent edema. Will try Jobst glove. - Constitutional Vitals: Temp Pulse Resp BP Pulse Ox 98.0 F 54 16 146/81 98 03/17/18 07:00 03/17/18 07:00 03/17/18 07:00 03/17/18 07:00 03/17/18 07:00 General appearance: Present: A&O X 3, pleasant, answers questions appropriately - Head Head exam: Present: atraumatic, normocephalic - Eye Eye exam: Present: PERRL, conjuntiva pink, sclera anicteric Pupils: Present: PERRL - Neck Neck exam general surgery: Present: supple, trachea midline. Absent: lymphadenopathy - Respiratory Respiratory exam: Present: CTAB. Absent: accessory muscle use, rales, rhonchi, wheezes - Cardiovascular Cardiovascular exam: Present: RRR, +S1, +S2. Absent: diastolic murmur, gallop, rubs, systolic murmur - GI/Abdominal GI/Abdominal exam: Present: normal bowel sounds, soft, no peritoneal signs. Absent: distended, tenderness - Extremities Exam Extremities exam: Present: warm, radial pulses palpable and symmetrical. Absent : calf tenderness, cyanotic, pedal edema Additional comments: Left hemiplegia - Incison Comments: Craniotomy incision. Sutures intact. Well approximated. No sign of infection. - Neurological Exam Neurological exam: Present: CN II-XII intact, oriented X3, no focal deficits. Absent: pronater drift, facial droop, speech deficit - Skin Skin exam: Present: dry, intact Internal Medicine: Result - Labs CBC & Chem 7: 03/16/18 07:07 03/16/18 07:07 - ABG Interpretation ABG results: PT/INR, D-dimer PT 13.2 Seconds (9.4-12.1) H 03/08/18 04:40 - VTE Documentation of Mechanical Device: Graduated compression elastic hosiery Consult Discharge Plan - Plan Referrals: Erika Baca, MANAGEMENT AIDE [Primary Care Provider] -
[2018-03-17] MEDS: Acetaminophen 325 MG TABLET PO PRN (21:35)
[2018-03-18] MEDS: hydrALAZINE 25 MG TABLET PO SCH ×3 (06:25→22:52)
[2018-03-18] MEDS: Aspirin Enteric Coated 81 MG Tablet PO SCH (08:41)
[2018-03-18] MEDS: Famotidine 20 MG TABLET PO SCH ×2 (08:41→22:52)
[2018-03-18] MEDS: Sennosides 8.6 MG TABLET PO SCH (08:41)
[2018-03-18] MEDS: Magnesium Oxide 400 MG TABLET PO SCH ×2 (08:41→22:52)
[2018-03-18] MEDS: tiZANidine 4 MG TABLET PO SCH (08:41)
--- NOTE | 2018-03-18 13:43 | Internal Med Progress Note ---
Date of Encounter: 03/18/18 Time of Encounter: 13:40 - Assessment and plan (1) CVA (cerebral vascular accident) Current Visit: Yes Status: Chronic Assessment and plan: Continue PT, OT, ST. Will follow progress and follow up with neurologist as scheduled. Qualifiers: CVA mechanism: unspecified Qualified Code(s): I63.9 - Cerebral infarction, unspecified (2) HTN (hypertension) Current Visit: No Status: Chronic Assessment and plan: Controlled with current medication. Monitor blood pressure. Qualifiers: Hypertension type: essential hypertension Qualified Code(s): I10 - Essential (primary) hypertension - Time Spent With Patient less than 15 minutes - Subjective Interval history: Participating well with therapy. No new neurological deficits. Sutures from craniotomy intact. No sign of infection. Denies fever, pain, chills, nausea vomiting or diarrhea. Maintaining appetite and hydration. denies pain or any new neuro deficits. Left hand swelling improving with jobst glove. Scheduled for discharge on March 20. - Constitutional Vitals: Temp Pulse Resp BP Pulse Ox 97.5 F L 72 16 130/79 98 03/18/18 07:48 03/18/18 07:48 03/18/18 07:48 03/18/18 07:48 03/18/18 07:48 General appearance: Present: A&O X 3, pleasant, answers questions appropriately Exam: Slow processing and slow to respond to questions. - Head Head exam: Present: atraumatic, normocephalic - Eye Eye exam: Present: PERRL, conjuntiva pink, sclera anicteric Pupils: Present: PERRL - Neck Neck exam general surgery: Present: supple, trachea midline. Absent: lymphadenopathy - Respiratory Respiratory exam: Present: CTAB. Absent: accessory muscle use, rales, rhonchi, wheezes - Cardiovascular Cardiovascular exam: Present: RRR, +S1, +S2. Absent: diastolic murmur, gallop, rubs, systolic murmur - GI/Abdominal GI/Abdominal exam: Present: normal bowel sounds, soft, no peritoneal signs. Absent: distended, tenderness - Extremities Exam Extremities exam: Present: warm, radial pulses palpable and symmetrical. Absent : calf tenderness, cyanotic, pedal edema Additional comments: Right hemiplegia - Incison Comments: Craniotomy incision. Well approximated no signs of infection. - Neurological Exam Neurological exam: Present: CN II-XII intact, oriented X3, no focal deficits. Absent: pronater drift, facial droop, speech deficit - Skin Skin exam: Present: dry, intact Internal Medicine: Result - Labs CBC & Chem 7: 03/16/18 07:07 03/16/18 07:07 - ABG Interpretation ABG results: PT/INR, D-dimer PT 13.2 Seconds (9.4-12.1) H 03/08/18 04:40 - VTE Documentation of Mechanical Device: Graduated compression elastic hosiery Consult Discharge Plan - Plan Referrals: Erika Baca EMBOSSER OPERATOR [Primary Care Provider] -
--- NOTE | 2018-03-18 14:53 | Physical Med Progress Note ---
Date of Encounter: 03/18/18 Time of Encounter: 14:50 Assessment and Plan (1) CVA (cerebral vascular accident) Current Visit: Yes Status: Chronic Assessment and plan: slow but steady progress. Staff feels there is some motivational component. Discharge planning. I think he is at the limit of what can be provided at home. I think it is going to be very demanding for his . Continue Rehab. Head sutures out. Qualifiers: CVA mechanism: unspecified Qualified Code(s): I63.9 - Cerebral infarction, unspecified Physical Medicine-PN: Subj Interval history: C/O left shoulder pain. Hip pain better. No headache. - Constitutional Vitals: Vital Signs Temp Pulse Resp BP Pulse Ox 03/18/18 07:48 97.5 F L 72 16 130/79 98 03/17/18 19:15 98 F 60 17 139/70 97 Intake and Output 03/17/18 03/18/18 03/18/18 23:59 07:59 15:59 Intake Total 50 / 50 240 / 240 Balance 50 / 50 240 / 240 Intake: Oral 50 / 50 240 / 240 Other: Meal Breakfast Percent of Meal Consumed 100% # Urine Diapers 1 1 General appearance: average body habitus, cooperative - Head Additional comments: Right curvilinear scalp incision line intact. No erythema. - Eye Eye exam: Present: EOMI - ENT ENT exam: Present: mucous membranes moist - Neck Neck exam: Present: full ROM - Respiratory Respiratory exam: Present: CTAB - Cardiovascular Cardiovascular exam: Present: RRR - GI/Abdominal GI/Abdominal exam: Present: normal bowel sounds, soft - Extremities Exam Additional comments: Left side flaccid. High tone. Pain with ROM left hand, wrist, and shoulder. - Neurological Exam Neurological exam: Present: abnormal gait, alert, motor sensory deficit, facial droop, speech deficit. Absent: oriented X3 Additional comments: Left hemineglect. Left hemianopsia. - Psychiatric Psychiatric exam: Present: normal affect, normal mood - Skin Additional comments: Scalp incision Physical Medicine-PN: Obj Data - Labs CBC & Chem 7: 03/16/18 07:07 03/16/18 07:07 Labs: Anemia, Hyponatremia - ABG Interpretation ABG results: PT/INR, D-dimer PT 13.2 Seconds (9.4-12.1) H 03/08/18 04:40 - VTE Documentation of Mechanical Device: Graduated compression elastic hosiery Consult Discharge Plan - Plan Referrals: Erika Baca CNP [Primary Care Provider] -
[2018-03-18] MEDS: tiZANidine 4 MG TABLET PO PRN (16:03)
[2018-03-18] MEDS: Acetaminophen 325 MG TABLET PO PRN (22:52)
[2018-03-19] MEDS: hydrALAZINE 25 MG TABLET PO SCH ×3 (07:25→23:22)
[2018-03-19] MEDS: Magnesium Oxide 400 MG TABLET PO SCH ×2 (08:39→21:01)
[2018-03-19] MEDS: Famotidine 20 MG TABLET PO SCH ×2 (08:39→21:01)
[2018-03-19] MEDS: Aspirin Enteric Coated 81 MG Tablet PO SCH (08:39)
[2018-03-19] MEDS: Sennosides 8.6 MG TABLET PO SCH (08:39)
--- NOTE | 2018-03-19 14:00 | Internal Med Progress Note ---
Date of Encounter: 03/19/18 Time of Encounter: 13:58 - Assessment and plan (1) CVA (cerebral vascular accident) Current Visit: Yes Status: Chronic Assessment and plan: Patient complains of left shoulder pain, which has been present for several weeks due to his lack of muscle tone. Recent x-ray showed no acute process.. Patient continues with left hemiplegia and no acute neurological deficits were noted. Patient is craniectomy suture lines remained dry and intact. We will continue with current plan of care. We will review patient's current medications to evaluate current muscle relaxant Qualifiers: CVA mechanism: unspecified Qualified Code(s): I63.9 - Cerebral infarction, unspecified (2) HTN (hypertension) Current Visit: No Status: Chronic Assessment and plan: Vital signs are stable. We will continue with current medications and continue to monitor closely. Goal of 160 or less for systolic.. Qualifiers: Hypertension type: essential hypertension Qualified Code(s): I10 - Essential (primary) hypertension - Time Spent With Patient less than 15 minutes - Subjective Interval history: Patient appears relaxed and currently has complaint of pain to his left shoulder. Patient has had complaints of left shoulder pain over the past several weeks. X-ray was taken several weeks ago which showed no acute process. Patient denies any other acute issues. - Constitutional Vitals: Temp Pulse Resp BP Pulse Ox 97.8 F 63 16 161/69 99 03/19/18 07:39 03/19/18 07:39 03/19/18 07:39 03/19/18 07:39 03/19/18 07:39 General appearance: Present: A&O X 3, pleasant, answers questions appropriately - Head Head exam: Present: atraumatic, normocephalic - Eye Eye exam: Present: PERRL, conjuntiva pink, sclera anicteric Pupils: Present: PERRL - Neck Neck exam general surgery: Present: supple, trachea midline. Absent: lymphadenopathy - Respiratory Respiratory exam: Present: CTAB. Absent: accessory muscle use, rales, rhonchi, wheezes - Cardiovascular Cardiovascular exam: Present: RRR, +S1, +S2. Absent: diastolic murmur, gallop, rubs, systolic murmur - GI/Abdominal GI/Abdominal exam: Present: normal bowel sounds, soft, no peritoneal signs. Absent: distended, tenderness - Extremities Exam Extremities exam: Present: warm, radial pulses palpable and symmetrical. Absent : calf tenderness, cyanotic, pedal edema - Neurological Exam Neurological exam: Present: CN II-XII intact, oriented X3. Absent: pronater drift, facial droop, speech deficit Additional comments: Patient continues with left grace-plegia. Right craniectomy surgical site appears well-healed and healthy. - Skin Skin exam: Present: dry, intact Internal Medicine: Result - Labs CBC & Chem 7: 03/16/18 07:07 03/16/18 07:07 - ABG Interpretation ABG results: PT/INR, D-dimer PT 13.2 Seconds (9.4-12.1) H 03/08/18 04:40 - VTE Documentation of Mechanical Device: Graduated compression elastic hosiery Consult Discharge Plan - Plan Referrals: Erika Baca RELAY MAN [Primary Care Provider] -
[2018-03-19] MEDS: Acetaminophen 325 MG TABLET PO PRN (16:42)
[2018-03-19] MEDS: tiZANidine 4 MG TABLET PO PRN (16:43)
[2018-03-20] MEDS: hydrALAZINE 25 MG TABLET PO SCH (06:24)
[2018-03-20 08:00] VITALS: BP 158/69
--- NOTE | 2018-03-20 08:14 | Discharge Summary ---
Orders not resulted at time of discharge: Pending orders 03/23/18 04:37 CBC [Complete Blood Count] [HEME] MO 03/23/18 04:38 BMP [Basic Metabolic Panel] MO 03/30/18 04:37 CBC [Complete Blood Count] [HEME] MO 03/30/18 04:38 BMP [Basic Metabolic Panel] MO Date of Encounter: 03/20/18 Time of Encounter: 08:12 - Discharge Diagnosis (1) CVA (cerebral vascular accident) Priority: Primary Status: Chronic Qualifiers: CVA mechanism: unspecified Qualified Code(s): I63.9 - Cerebral infarction, unspecified (2) HTN (hypertension) Priority: Secondary Status: Chronic Qualifiers: Hypertension type: essential hypertension Qualified Code(s): I10 - Essential (primary) hypertension Hospital course: Mr. Fuentes is a 67 year old male who was originally admitted for a right MCA embolic CVA at [facility] He was treated with a right craniectomy and eventually had a uneventful recovery. Patient had a residual of left hemiplegia and expressive aphasia. Patient's speech has progressed well over the course of the last several weeks with him being able to answer simple sentences now. Patient was transferred to this facility for rehabilitation and progressed well with therapy. Patient return to [facility] approximately 2 weeks ago for replacement of multiple flap and tolerated procedure well. Surgical incision appears to be healing well and sutures have been removed. Patient does have occasional complaints of left shoulder pain, but a recent x-ray of the left shoulder shows no acute process. Patient's blood pressure is been well controlled, along with his diabetes. Discharge discussed with: patient, family Time spent discussing smoking cessation with patient: 3 to 10 minutes - Time Spent with Patient Total time spent providing and/or coordinating discharge services: Less than 30 minutes - Discharge Medications Home Medications: Levothyroxine [Synthroid] 100 mcg PO 0630 12/06/17 [History] Losartan [Cozaar] 50 mg PO Q12HR 12/06/17 [History] Aspirin Enteric Coated [Aspirin EC] 81 mg PO DAILY 01/05/18 [History] Atorvastatin Calcium [Lipitor] 80 mg PO HS 01/05/18 [History] hydrALAZINE [HydrALAZINE] 25 mg PO Q8HR 01/05/18 [History] Acetaminophen [Tylenol] 650 mg PO Q6HR PRN 03/07/18 [History] Citalopram Hydrobromide [Celexa] 20 mg PO DAILY 03/07/18 [History] Docusate [Colace] 100 mg PO BID PRN 03/07/18 [History] Famotidine [Pepcid] 20 mg PO BID 03/07/18 [History] Oxycodone HCl/Acetaminophen [Percocet 5-325 mg Tablet] 1 each PO Q6HR PRN [History] Polyethylene Glycol 3350 [MiraLAX] 17 gm PO DAILY PRN 03/07/18 [History] Sennosides [Senna] 8.6 mg PO DAILY 03/07/18 [History] Tizanidine HCl [Zanaflex] 2 mg PO TID 03/07/18 [History] Allergies/Adverse Reactions: 3 Allergy/AdvReac Type Severity Reaction Status Date / Time No Known Allergies Allergy Verified 12/06/17 09:31 Date of admission: 03/07/18 21:51 Primary care physician: Erika Baca CNP Consults: 03/07/18 22:42 Consult to Occupational Therapy [CONS] Routine Comment: Evaluate, develop and implement POC Reason for Consult: eval / tx Does patient have active BEDREST order?: No Is patient medically & hemodynamically stable?: Yes Patient assessed for mobility or mobilized this visit?: No Consult to Physical Therapy [CONS] Routine Comment: Evaluate, develop and implement POC Reason for Consult: eval / tx Does patient have active BEDREST order?: No Is patient medically & hemodynamically stable?: Yes Patient assessed for mobility or mobilized this visit?: No Consult to Recreational Therapy [CONS] Routine Comment: Evaluate, develop and implement POC Consult to Bus Aide [CONS] Routine Reason for SW Consult: d/c planning 03/07/18 23:57 Consult to Speech Therapy [CONS] Routine Comment: Evaluate, develop and implement POC Reason for Consult: skull replacement surgery, pt has c/o jaw pain Call Completed: No 03/11/18 15:12 Consult to Physical Medicine/Rehab [CONS] Routine Reason for Consult: cva Call Completed: Yes Discharging clinician: Omi Craft Anticipated date of discharge: 03/20/18 - Constitutional Vitals: Temp Pulse Resp BP Pulse Ox 98.0 F 59 18 158/69 98 03/20/18 07:58 03/20/18 07:58 03/20/18 07:58 03/20/18 07:58 03/20/18 07:58 General appearance: Present: A&O X 3, pleasant, answers questions appropriately - Head Head exam: Present: atraumatic, normocephalic - Eye Eye exam: Present: PERRL, conjuntiva pink, sclera anicteric Pupils: Present: PERRL - Neck Neck exam general surgery: Present: supple, trachea midline. Absent: lymphadenopathy - Respiratory Respiratory exam: Present: CTAB. Absent: accessory muscle use, rales, rhonchi, wheezes - Cardiovascular Cardiovascular exam: Present: RRR, +S1, +S2. Absent: diastolic murmur, gallop, rubs, systolic murmur - GI/Abdominal GI/Abdominal exam: Present: normal bowel sounds, soft, no peritoneal signs. Absent: distended, tenderness - Extremities Exam Extremities exam: Present: warm, radial pulses palpable and symmetrical. Absent : calf tenderness, cyanotic, pedal edema - Neurological Exam Neurological exam: Present: CN II-XII intact, oriented X3. Absent: pronater drift, facial droop, speech deficit Additional comments: Left hemiplegia - Skin Skin exam: Present: dry, intact - Patient Status Disposition: Home Health Service Condition: Good Functional capacity at discharge: wheelchair bound Overall status at discharge: patient is progressing back to baseline - Discharge Instructions Follow Up With: Erika Baca CNP [Primary Care Provider] - 03/23/18 9:00 am - Diet and Activity Activity: as per physical therapy, increase activity as tolerated Diet: advance to your usual diet - VTE Documentation of Mechanical Device: Graduated compression elastic hosiery
--- NOTE | 2018-03-20 08:25 | Physician Discharge Referral ---
Home Health/Hosp Referral Info Transfer to: Home Health Provider in Charge Post Discharge: PCP - Diagnosis (1) CVA (cerebral vascular accident) Priority: Primary Status: Acute (2) HTN (hypertension) Priority: Secondary Status: Chronic - Respiratory Orders Smoking Cessation: Smoking cessation has been advised. For more information, call the [place] Tobacco Quit Line at 8-320-RMJQ-NOW. - Diet/Nutrition Diet/Nutrition Orders: Regular - Activity Activity Orders: Chair - Services Needed Following services are medically necessary services: Nursing, Home Health Aide, Physical Therapy, Occupational Therapy Other Treatments: monitor healing of right crainiectomy site. - Transfer Medications Home Medications: Levothyroxine [Synthroid] 100 mcg PO 0630 12/06/17 [History] Losartan [Cozaar] 50 mg PO Q12HR 12/06/17 [History] Aspirin Enteric Coated [Aspirin EC] 81 mg PO DAILY 01/05/18 [History] Atorvastatin Calcium [Lipitor] 80 mg PO HS 01/05/18 [History] hydrALAZINE [HydrALAZINE] 25 mg PO Q8HR 01/05/18 [History] Acetaminophen [Tylenol] 650 mg PO Q6HR PRN 03/07/18 [History] Citalopram Hydrobromide [Celexa] 20 mg PO DAILY 03/07/18 [History] Docusate [Colace] 100 mg PO BID PRN 03/07/18 [History] Famotidine [Pepcid] 20 mg PO BID 03/07/18 [History] Oxycodone HCl/Acetaminophen [Percocet 5-325 mg Tablet] 1 each PO Q6HR PRN [History] Polyethylene Glycol 3350 [MiraLAX] 17 gm PO DAILY PRN 03/07/18 [History] Sennosides [Senna] 8.6 mg PO DAILY 03/07/18 [History] Tizanidine HCl [Zanaflex] 2 mg PO TID 03/07/18 [History] Allergies/Adverse Reactions: 3 Allergy/AdvReac Type Severity Reaction Status Date / Time No Known Allergies Allergy Verified 12/06/17 09:31 Certification: Further, I certify that my clinical findings support that this patient is homebound (i.e. absences from home require considerable and taxing effort and are for medical reasons or muslim services or infrequently or short duration when for other reasons) because: Homebound Reason: Patient requires assistance of a person or device to safely leave home, Post-surgery restriction and or conditions limit ability to leave home, Leaving home requires considerable and taxing effort due to condition Attestation: My signature below is to certify that this patient is under my care and that I, or nurse practitioner, or a physician's commercial lines assistant working with me, has a face-to -face encounter with this patient.
[2018-03-20] MEDS: Aspirin Enteric Coated 81 MG Tablet PO SCH (08:35)
[2018-03-20] MEDS: Sennosides 8.6 MG TABLET PO SCH (08:35)
[2018-03-20] MEDS: Magnesium Oxide 400 MG TABLET PO SCH (08:35)
[2018-03-20] MEDS: Famotidine 20 MG TABLET PO SCH (08:35)
== END 2018-03-20 15:57 | disposition home health service (06) | DRG 57 ==
LOC: INPGRE 21:51
PROVIDERS: ADMIT Internal Medicine; ATTEND Internal Medicine